=== PATIENT | male | born 1945 | race Hispanic/Latino ===

== ENCOUNTER 2024-07-13 05:41 | Inpatient (IN) | payer OTHER ==
[~2024-07-13] VITALS: Ht 162.6 cm; Wt 53.5 kg
[2024-07-13] VITALS (26 sets, daily range): BP systolic 80–133; BP diastolic 51–80; PULSE 59–92; RESP 14–18; TEMP 97.3–98.8
[2024-07-13] MEDS ORDERED: RAMI5CAP72 PO (06:38)
[2024-07-13] MEDS ORDERED: CLOP75TA32 PO (06:38)
[2024-07-13] MEDS ORDERED: OMEP40CA21 PO (06:38)
[2024-07-13] MEDS: 0.9%NACL 1000ML 1,000 ML IV ONE (06:52)
[2024-07-13] MEDS ORDERED: proPOFol 10 MG/ML 20ML VIAL IV ONE (10:35)
[2024-07-13] MEDS ORDERED: ARTIFICAL TEARS SOL 15 ML OP PRN (11:30)
[2024-07-13] MEDS ORDERED: hydrALAZine 25MG TABLET PO PRN (11:30)
[2024-07-13] MEDS ORDERED: GLUCAGON 1MG KIT 1 MG ML IM PRN (11:30)
[2024-07-13] MEDS ORDERED: DEXTROSE 50%-WATER 50 ML DISP.SYRIN IV PRN (11:30)
[2024-07-13] MEDS ORDERED: ondanSETRON 4MG INJ IV PRN (11:30)
[2024-07-13] MEDS ORDERED: DiphenhydrAMINE HCL 50 MG/ML VIAL IV PRN (11:30)
[2024-07-13] MEDS: DEXTROSE 5 %-0.45 % NACL 1,000 ML IV SCH (11:30)
--- NOTE | 2024-07-13 15:46 | HP ---
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 Acute Dehydration Failure to thrive secondary to #1 Electrolyte derangements Microcytic Anemia Leukocytosis , unclear etiology HTN GERD PLAN : Start D5 NS at this time , considering PPN for nutrition as patient has been npo for prolonged period of time Further evaluate leukocytosis with UA /CXR / Procalcitonin and peripheral smear Anemia studies Consult Oncology and General Surgery Ct abd/pelvis and Chest to evaluate for metastasis Pain control DVT prophylaxis / GI bleeding prophylaxis Pain control CBC CMP daily HPI: This is a case of an 78-year-old man that had persistent symptoms of gastroesophageal reflux disease with a past medical history of hypertension that was evaluated by Gastroenterology on July 01, 2024. Given his persistent symptoms the patient was set up to do an EGD and colonoscopy. An EGD was 1st done this morning and he was noted to have a gastric mass consistent with a gastric outlet obstruction. At this point our services were contacted for admission . Last meal intake was about 2 weeks ago with a solid ., he has been taking ensures and clear liquid since then without much appetite . BMs have been normal, last one this AM No emesis reported, + nausea . He jordan have a history of remote tobacco use , but quit about 10 yrs ago . He did partake in ETOH use about 4-5 drinks a day but quit 04/2024 Son is at bedside and we discussed current findings in detail and plan of care. PAST MEDICAL HX: see above PAST SURGICAL HX: noncontributory SOCIAL HISTORY: No current tobacco, ETOH, or illicit drug use Prior hx of smoking and ETOH Coded Allergies: No Known Drug Allergies (Unverified Allergy, Unknown, 07/13/24) REVIEW OF SYSTEMS: 12 point ROS reviewed with patient. Pertinent positives mentioned above. Otherwise negative. PHYSICAL EXAM: GENERAL: alert, weak, awake oriented x 3 HEENT: EOMI, Sclera non icteric, moist mucosa NECK: Supple, no JVD, trachea midline LUNGS: Clear breath sounds bilaterally. No wheezes HEART: Regular rate and rhythm. Normal S1 and S2, without murmurs ABD: Abdomen soft, nontender. Bowel sounds present EXT: No clubbing cyanosis or edema NEURO: Alert and oriented to person, follows commands Vital Signs (last 8hr) Date Time Temp Pulse Resp B/P (MAP) Pulse Ox O2 Delivery O2 Flow Rate FiO2 07/13/24 15:20 97.3 71 16 109/65 95 Room Air 0.0 07/13/24 14:50 66 15 121/56 94 Room Air 0.0 07/13/24 13:50 64 16 114/62 94 Room Air 0.0 07/13/24 13:20 62 16 109/62 95 Room Air 0.0 07/13/24 12:50 65 16 114/61 94 Room Air 0.0 07/13/24 12:35 61 16 102/58 95 Room Air 0.0 07/13/24 12:20 65 16 117/56 95 Room Air 0.0 07/13/24 12:05 62 14 110/61 94 Room Air 0.0 07/13/24 11:50 65 16 123/58 96 Room Air 0.0 07/13/24 11:35 59 16 122/56 100 Room Air 0.0 07/13/24 11:20 63 16 111/61 100 PROCEDURE MASK 5.0 07/13/24 11:15 66 16 112/59 100 PROCEDURE MASK 10.0 07/13/24 11:10 67 16 115/59 100 PROCEDURE MASK 15.0 07/13/24 11:05 70 16 82/59 100 PROCEDURE MASK 15.0 07/13/24 11:00 71 14 85/56 98 PROCEDURE MASK 15.0 07/13/24 10:55 81 14 80/53 98 PROCEDURE MASK 15.0 07/13/24 10:50 97.3 80 14 82/59 92 PROCEDURE MASK 15.0 LABS: DIAGNOSTICS / RADIOLOGY RESULTS: [ ] PLAN NEURO: Minimize central acting medications as possible. Maintain fall precautions, adequate lighting during the day PULMONARY: Supplemental 02 as needed. Maintain aspiration precautions at all times CARDIOVASCULAR: Follow hemodynamics. Vital signs per facility protocol GI & NUTRITION: Continue with nutritional support. Continue stool softeners and laxatives as needed. KIDNEYS & ELECTROLYTES: Strict monitoring of intake, output and overall fluid balance. Avoid nephrotoxic medications to the extent possible. Medications to be dosed according to renal function. Monitor electrolytes and replace as needed ENDOCRINE: Maintain blood glucose between 100-180 at all times. Hypoglycemia protocol in place INFECTIOUS DISEASE: Trend temperature, WBC and procalcitonin level Follow cultures, deescalate antibiotics as soon as possible. Panculture if new onset fever ONCOLOGY/HEMATOLOGY/COAGULATION: Monitor for s/s of bleeding Monitor hemoglobin, coagulation studies as needed SKIN: Pressure ulcer prevention per facility protocol Specialty mattress ORTHO/REHAB: Continue PT/OT Prophylaxis: Continue GI and DVT prophylaxis Code Status: Full Resuscitation Disposition: TBD Other: Total patient care time exceeds 35 minutes excluding all procedures. ALEX NAVA Jul 13, 2024 15:45
[2024-07-13 17:47] LABS: HEMATOCRIT 31.3 % (42-54); MEAN CORPUSCULAR HEMOGLOBIN 22.7 pg (27.0-33.0); MEAN CORPUSCULAR HGB CONC 30.7 g/dL (32.0-36.0); MEAN CORPUSCULAR VOLUME 74.2 fL (79-99); PLATELET COUNT (AUTO) 565 K/uL (130-400); RED BLOOD CELL COUNT(AUTO) 4.22 MIL/uL (4.50-6.20); RED CELL DISTRIBUTION WIDTH 17.2 % (11.0-15.5); WHITE BLOOD COUNT (AUTO) 20.5 K/uL (4.8-10.8)
[2024-07-13 17:52] LABS: BASOPHILS # (AUTO) 0.05 K/uL (0.00-0.20); BASOPHILS % (AUTO) 0.2 % (0.0-5.0); EOSINOPHILS # (AUTO) 0.02 K/uL (0.00-0.70); EOSINOPHILS % (AUTO) 0.1 % (0.0-8.0); LYMPHOCYTES # (AUTO) 0.5 K/uL (1.0-4.8); LYMPHOCYTES % (AUTO) 2.4 % (21.0-51.0); MONOCYTES # (AUTO) 1.4 K/uL (0.1-1.0); NEUTROPHILS # (AUTO) 18.3 K/uL (1.8-7.7); NEUTROPHILS % (AUTO) 89.8 % (40.0-77.0)
[2024-07-13 18:01] LABS: ALBUMIN 2.8 g/dL (3.5-5.0); BILIRUBIN,TOTAL 0.5 mg/dL (0.2-1.0); CREATININE 0.7 mg/dL (0.5-1.3); POTASSIUM 3.1 mmol/L (3.5-5.1); TOTAL PROTEIN, SERUM 5.7 g/dL (6.0-8.3)
[2024-07-13] MEDS: FAMOTIDINE 20MG VIAL IV SCH (20:12)
--- NOTE | 2024-07-13 20:20 | CONS ---
GASTROENTEROLOGY CONSULTATION NOTE Date of Consultation: Jul 13, 2024 Time of Consultation: 20:20 History of Present Illness: This is an 78-year-old male known to our services who was seen outpatient for endoscopy due to dysphagia. 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 Patient is also found to have LA grade B esophagitis. Excessive gastric fluid was suctioned. Patient admitted for NG tube to LIS and IV hydration. Review of Systems: CONSTITUTIONAL: No malaise or change in sensation of wellbeing. ENMT: No rhinorrhea, otorrhea, sinus pain, ear ache. CARDIOVASCULAR: No angina, palpitations, orthopnea or paroxysmal dyspnea. RESPIRATORY: No SOB. GASTROINTESTINAL: No abdominal pain, nausea, vomiting, diarrhea, hematemesis, melena or change in the patient's habitual bowel movements consistency/number. GENITOURINARY: No dysuria, hematuria or change in bladder continence. MUSCULOSKELETAL: No new muscle pain or decrease in muscular strength. No new joint swelling, redness or tenderness. SKIN: No new rash. Past Medical History: PAST MEDICAL HX: see above PAST SURGICAL HX: noncontributory SOCIAL HISTORY: No current tobacco, ETOH, or illicit drug use Prior hx of smoking and ETOH Coded Allergies: No Known Drug Allergies (Unverified Allergy, Unknown, 07/13/24) Physical Exam: GEN: Awake, alert, oriented in person, time and place, and in no acute distress. HEENT: No sinus tenderness. Tympanic membranes were not examined. No rhinorrhea. Oral pharyngeal mucosa is pink, moist and within normal limits. Neck is supple with no cervical lymphadenopathy, thyromegaly or JVD. CHEST: Inspection, palpation and percussion of the chest were unremarkable. Lung auscultation revealed normal breath sounds bilaterally. CARDIAC: PMI is within normal limits. Heart sounds are regular. Normal S1, S2. No gallop or murmur. ABD: Soft, non-tender and not distended. No peritoneal signs on palpation. No organomegaly. Normal bowel sounds. EXT: No cyanosis or clubbing. No edema. SKIN: Intact. No rashes. JOINTS: No evidence of synovitis or acute arthritis. NEURO: Alert and oriented to name, place and person. Cranial nerve examination is unremarkable. No focal motor deficits. Normal speech. Gait is normal. Strength is normal. Vital Sign (Last 24 Hours) 07/13/24 07/13/24 15:20 18:45 Temp 97.3 Pulse 86 Resp 18 B/P (MAP) 99/62 Pulse Ox 99 O2 Delivery Room Air O2 Flow Rate 0.0 Laboratory: [ ] Laboratory: Test 07/13/24 17:40 Range/Units White Blood Count 20.5 H 4.8-10.8 K/uL Red Blood Count 4.22 L 4.50-6.20 MIL/uL Hemoglobin 9.6 L 14.0-18.0 g/dL Hematocrit 31.3 L 42-54 % Mean Corpuscular Volume 74.2 L 79-99 fL Mean Corpuscular Hemoglobin 22.7 L 27.0-33.0 pg Mean Corpuscular Hemoglobin Concent 30.7 L 32.0-36.0 g/dL Red Cell Distribution Width 17.2 H 11.0-15.5 % Platelet Count 565 H 130-400 K/uL Mean Platelet Volume 10.0 7.5-10.5 fL Immature Granulocyte % (Auto) 0.5 0-1 % Neutrophils (%) (Auto) 89.8 H 40.0-77.0 % Lymphocytes (%) (Auto) 2.4 L 21.0-51.0 % Monocytes (%) (Auto) 7.0 3.0-13.0 % Eosinophils (%) (Auto) 0.1 0.0-8.0 % Basophils (%) (Auto) 0.2 0.0-5.0 % Neutrophils # (Auto) 18.3 H 1.8-7.7 K/uL Lymphocytes # (Auto) 0.5 L 1.0-4.8 K/uL Monocytes # (Auto) 1.4 H 0.1-1.0 K/uL Eosinophils # (Auto) 0.02 0.00-0.70 K/uL Basophils # (Auto) 0.05 0.00-0.20 K/uL Absolute Immature Granulocyte (auto 0.10 0-1 K/uL Nucleated Red Blood Cells 0.0 0.0-0.19 % White Cell Morphology Comment See comments Sodium Level 139 136-145 mmol/L Potassium Level 3.1 L 3.5-5.1 mmol/L Chloride Level 100 L 101-111 mmol/L Carbon Dioxide Level 30 21-32 mmol/L Blood Urea Nitrogen 10 7-18 mg/dL Creatinine 0.7 0.5-1.3 mg/dL Glomerular Filtration Rate Calc 93 >90 mL/min Random Glucose 77 70-105 mg/dL Total Calcium 8.3 L 8.5-10.1 mg/dL Total Bilirubin 0.5 0.2-1.0 mg/dL Aspartate Amino Transf (AST/SGOT) 26 10-37 U/L Alanine Aminotransferase (ALT/SGPT) 24 12-78 U/L Alkaline Phosphatase 63 50-136 U/L Total Protein 5.7 L 6.0-8.3 g/dL Albumin 2.8 L 3.5-5.0 g/dL Current Medications Medications (Trade) Dose Ordered Sig/Nory Route PRN Reason Start Time Stop Time Status Last Admin Dose Admin Artificial Tears (Artificial Tears) 1 DROP OP PRN DRY EYES Q2H PRN OP DRY EYES 07/13/24 11:30 08/12/24 11:29 Dextrose (D50w) 50 ml AD PRN IV HYPOGLYCEMIA PROTOCOL 07/13/24 11:30 08/12/24 11:29 Dextrose/Sodium Chloride 1,000 ml @ 75 mls/hr [id number] IV 07/13/24 11:30 08/12/24 11:29 07/13/24 20:12 75 MLS/HR Diphenhydramine HCl (BENAdryl INJ) 25 mg Q6H PRN IV SEVERE ITCHING/RASH 07/13/24 11:30 08/12/24 11:29 Famotidine (Pepcid 20mg Vial) 20 mg BID IV 07/13/24 21:00 08/12/24 20:59 07/13/24 20:12 20 MG Glucagon (Glucagon 1mg Kit) 1 mg AD PRN IM HYPOGLYCEMIA PROTOCOL 07/13/24 11:30 08/12/24 11:29 Hydralazine HCl ([id number] TAB) 25 mg Q6H PRN PO SBP>160 or DBP>90 07/13/24 11:30 08/12/24 11:29 Ondansetron HCl (zoFRAN 4MG INJ) 4 mg Q6H PRN IV NAUSEA/VOMITING 07/13/24 11:30 08/12/24 11:29 Diagnostics / Radiology: [COPY/PASTE HERE IF NO REPORTS PLEASE DELETE SECTION] Assessment: Gastric mass GERD esophagitis Dysphagia Weight loss Plan: Foregut surgery consult for resection vs feeding tube placement Await path Continue GI prophylaxis Avoid NSAIDs Antireflux measures Monitor H&H and transfuse as needed Call with questions, concerns or change in clinical status Patient to follow-up at clinic post discharge Thank you for this consult ARMAAN MIRZA Jul 13, 2024 20:20
[2024-07-14] VITALS (9 sets, daily range): BP systolic 93–107; BP diastolic 45–58; PULSE 68–87; RESP 17–19; TEMP 97.4–99.5; O2SAT 97
[2024-07-14 04:33] LABS: ALBUMIN 2.5 g/dL (3.5-5.0); BILIRUBIN,TOTAL 0.6 mg/dL (0.2-1.0); CREATININE 0.9 mg/dL (0.5-1.3); POTASSIUM 3.3 mmol/L (3.5-5.1); TOTAL PROTEIN, SERUM 5.6 g/dL (6.0-8.3)
--- NOTE | 2024-07-14 09:56 | PN ---
GASTROENTEROLOGY PROGRESS NOTE Date of Visit: Jul 14, 2024 Time of Visit: 09:56 Events / Notes: No acute events overnight. Patient stable in no acute distress. He is on parenteral nutrition. 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 CT without any evidence of metastasis. Review of Systems: CONSTITUTIONAL: No malaise or change in sensation of wellbeing. ENMT: No rhinorrhea, otorrhea, sinus pain, ear ache. CARDIOVASCULAR: No angina, palpitations, orthopnea or paroxysmal dyspnea. RESPIRATORY: No SOB. GASTROINTESTINAL: No abdominal pain, nausea, vomiting, diarrhea, hematemesis, melena or change in the patient's habitual bowel movements consistency/number. GENITOURINARY: No dysuria, hematuria or change in bladder continence. MUSCULOSKELETAL: No new muscle pain or decrease in muscular strength. No new joint swelling, redness or tenderness. SKIN: No new rash. Physical Exam: GEN: Awake, alert, oriented in person, time and place, and in no acute distress. HEENT: No sinus tenderness. Tympanic membranes were not examined. No rhinorrhea. Oral pharyngeal mucosa is pink, moist and within normal limits. Neck is supple with no cervical lymphadenopathy, thyromegaly or JVD. CHEST: Inspection, palpation and percussion of the chest were unremarkable. Lung auscultation revealed normal breath sounds bilaterally. CARDIAC: PMI is within normal limits. Heart sounds are regular. Normal S1, S2. No gallop or murmur. ABD: Soft, non-tender and not distended. No peritoneal signs on palpation. No organomegaly. Normal bowel sounds. EXT: No cyanosis or clubbing. No edema. SKIN: Intact. No rashes. JOINTS: No evidence of synovitis or acute arthritis. NEURO: Alert and oriented to name, place and person. Cranial nerve examination is unremarkable. No focal motor deficits. Normal speech. Gait is normal. Strength is normal. Vital Signs (last 8hr) Date Time Temp Pulse Resp B/P (MAP) Pulse Ox O2 Delivery O2 Flow Rate FiO2 07/14/24 08:00 99.5 71 18 107/58 97 Room Air 07/14/24 04:00 98.1 69 17 104/57 93 Nasal Cannula 3.0 Laboratory: [ ] Laboratory: Test 07/14/24 04:00 07/13/24 17:40 Range/Units Sodium Level 138 136-145 mmol/L Potassium Level 3.3 L 3.5-5.1 mmol/L Chloride Level 100 L 101-111 mmol/L Carbon Dioxide Level 34 H 21-32 mmol/L Blood Urea Nitrogen 10 7-18 mg/dL Creatinine 0.9 0.5-1.3 mg/dL Glomerular Filtration Rate Calc 86 >90 mL/min Random Glucose 122 #H 70-105 mg/dL Total Calcium 8.3 L 8.5-10.1 mg/dL Total Bilirubin 0.6 0.2-1.0 mg/dL Aspartate Amino Transf (AST/SGOT) 24 10-37 U/L Alanine Aminotransferase (ALT/SGPT) 20 12-78 U/L Alkaline Phosphatase 58 50-136 U/L Total Protein 5.6 L 6.0-8.3 g/dL Albumin 2.5 L 3.5-5.0 g/dL White Blood Count 20.5 H 4.8-10.8 K/uL Red Blood Count 4.22 L 4.50-6.20 MIL/uL Hemoglobin 9.6 L 14.0-18.0 g/dL Hematocrit 31.3 L 42-54 % Mean Corpuscular Volume 74.2 L 79-99 fL Mean Corpuscular Hemoglobin 22.7 L 27.0-33.0 pg Mean Corpuscular Hemoglobin Concent 30.7 L 32.0-36.0 g/dL Red Cell Distribution Width 17.2 H 11.0-15.5 % Platelet Count 565 H 130-400 K/uL Mean Platelet Volume 10.0 7.5-10.5 fL Immature Granulocyte % (Auto) 0.5 0-1 % Neutrophils (%) (Auto) 89.8 H 40.0-77.0 % Lymphocytes (%) (Auto) 2.4 L 21.0-51.0 % Monocytes (%) (Auto) 7.0 3.0-13.0 % Eosinophils (%) (Auto) 0.1 0.0-8.0 % Basophils (%) (Auto) 0.2 0.0-5.0 % Neutrophils # (Auto) 18.3 H 1.8-7.7 K/uL Lymphocytes # (Auto) 0.5 L 1.0-4.8 K/uL Monocytes # (Auto) 1.4 H 0.1-1.0 K/uL Eosinophils # (Auto) 0.02 0.00-0.70 K/uL Basophils # (Auto) 0.05 0.00-0.20 K/uL Absolute Immature Granulocyte (auto 0.10 0-1 K/uL Nucleated Red Blood Cells 0.0 0.0-0.19 % White Cell Morphology Comment See comments Current Medications Medications (Trade) Dose Ordered Sig/Nory Route PRN Reason Start Time Stop Time Status Last Admin Dose Admin Artificial Tears (Artificial Tears) 1 DROP OP PRN DRY EYES Q2H PRN OP DRY EYES 07/13/24 11:30 08/12/24 11:29 Dextrose (D50w) 50 ml AD PRN IV HYPOGLYCEMIA PROTOCOL 07/13/24 11:30 08/12/24 11:29 Dextrose/Sodium Chloride 1,000 ml @ 75 mls/hr [id number] IV 07/13/24 11:30 08/12/24 11:29 07/13/24 20:12 75 MLS/HR Diphenhydramine HCl (BENAdryl INJ) 25 mg Q6H PRN IV SEVERE ITCHING/RASH 07/13/24 11:30 08/12/24 11:29 Famotidine (Pepcid 20mg Vial) 20 mg BID IV 07/13/24 21:00 08/12/24 20:59 07/13/24 20:12 20 MG Glucagon (Glucagon 1mg Kit) 1 mg AD PRN IM HYPOGLYCEMIA PROTOCOL 07/13/24 11:30 08/12/24 11:29 Hydralazine HCl ([id number] TAB) 25 mg Q6H PRN PO SBP>160 or DBP>90 07/13/24 11:30 08/12/24 11:29 Ondansetron HCl (zoFRAN 4MG INJ) 4 mg Q6H PRN IV NAUSEA/VOMITING 07/13/24 11:30 08/12/24 11:29 Diagnostics / Radiology: [COPY/PASTE HERE IF NO REPORTS PLEASE DELETE SECTION] Assessment: Gastric mass with gastric outlet obstruction GERD esophagitis Dysphagia Weight loss Plan: Foregut surgery consult for resection vs feeding tube placement Await path Continue GI prophylaxis Avoid NSAIDs Antireflux measures Monitor H&H and transfuse as needed Call with questions, concerns or change in clinical status Patient to follow-up at clinic post discharge Thank you for this consult ARMAAN MIRZA [facility] Jul 14, 2024 09:56
[2024-07-14 11:05] LABS: BASOPHILS # (AUTO) 0.09 K/uL (0.00-0.20); BASOPHILS % (AUTO) 0.4 % (0.0-5.0); EOSINOPHILS # (AUTO) 0.21 K/uL (0.00-0.70); EOSINOPHILS % (AUTO) 0.9 % (0.0-8.0); HEMATOCRIT 28.4 % (42-54); IMMATURE GRANULOCYTE ABSOLUTE 0.36 K/uL (0-1); LYMPHOCYTES # (AUTO) 1.2 K/uL (1.0-4.8); LYMPHOCYTES % (AUTO) 5.2 % (21.0-51.0); MEAN CORPUSCULAR HEMOGLOBIN 22.6 pg (27.0-33.0); MONOCYTES # (AUTO) 1.4 K/uL (0.1-1.0); NEUTROPHILS # (AUTO) 19.8 K/uL (1.8-7.7); NEUTROPHILS % (AUTO) 85.9 % (40.0-77.0); PLATELET COUNT (AUTO) 512 K/uL (130-400); RED BLOOD CELL COUNT(AUTO) 3.89 MIL/uL (4.50-6.20); RED CELL DISTRIBUTION WIDTH 17.2 % (11.0-15.5); RETICULOCYTE % (AUTO) 1.39 % (0.42-2.23)
[2024-07-14 11:38] LABS: % IRON SATURATION 2.6 % (30-44)
[2024-07-14] MEDS ORDERED: IOHEXOL 350 MG/ML 100ML INFUS..BTL IV ONE (13:15)
--- NOTE | 2024-07-14 13:21 | NUR ---
[facility] CM MET WITH PT AND GRANDSON IN ROOM INITIAL ASSESSMENT DONE. PATIENT IS INDEPENDENT PRIOR TO ADMISSION, LIVES AT HOME WITH HIS SPUSE AND SON. PT HAS OWN BPM. DENIES ANY OTHER EQUIPMENT/SERVICES. FEELS SAFE TO GO BACK HOME, STILL DRIVE, FAMILY ABLE TO ASSIST WITH TRANSPORTATION AND NEEDS NECESSARY. DCP HOME ONCE STABLE. CM TO CONTINUE TO FOLLOW UP. Addendum: 07/14/24 at 1322 by STEFANI NI LVN CM Amended: Links added.
--- NOTE | 2024-07-14 14:03 | CONS ---
GENERAL SURGERY CONSULTATION NOTE Date/Time Patient Seen: July 14, 2024 Requesting Physician: Primary care hospitalist team and commercial carpenter Reason for Consultation: Concern for near obstructing gastric mass, probable gastric cancer History of Present Illness: I was consulted to get involved in the care of the patient was found to have a near obstructing gastric mass. This was discovered on EGD endoscopy by Gastroenterology. We are awaiting biopsy results and the patient is undergoing further testing at this time. He appears medically stable with an NG tube in place. At the time of my consultation he was being transported down to radiology for CT scan. Past Medical History: Please see admission H and P for further details Past Surgical History: Please see admission H and P for further details Family History: Please see admission H and P for further details Social History: Please see admission H and P for further details Habits: Please see admission H and P for further details Current Medications Medications (Trade) Dose Ordered Sig/Nory Route Start Time Stop Time Status Last Admin Dose Admin Dextrose/Sodium Chloride 1,000 ml @ 75 mls/hr [id number] IV 07/13/24 11:30 08/12/24 11:29 07/13/24 20:12 75 MLS/HR Enoxaparin Sodium (Lovenox) 30 mg DAILY SQ 07/15/24 09:00 08/14/24 08:59 Famotidine (Pepcid 20mg Vial) 20 mg BID IV 07/13/24 21:00 08/12/24 20:59 07/14/24 10:01 20 MG Review of Systems: Please see admission H and P for further details Physical Examination: GENERAL: [No acute distress.] HEAD: [Normal with no signs of head trauma.] EYES: [PERRLA, EOMI, conjunctiva and sclera normal.] ENT: [Hearing grossly intact, normal oropharynx.] NECK: [Supple without JVD. There is no tenderness, lymphadenopathy, or masses. No thyromegaly. Normal carotid upstrokes without bruits.] LUNGS: [Clear breath sounds bilaterally.] HEART: [Normal rate and rhythm.] VASC: [Peripheral pulses +2 bilaterally.] ABD: [Soft, normal bowel sounds.] : [Not examined] LYMPH: [No lymphadenopathy noted.] EXT: [No clubbing, cyanosis or edema noted.] SKIN: [No rashes or lesions noted.] NEURO: [Awake, alert, and oriented x3. No focal sensory or strength deficits noted.] Vital Signs (last 8hr) Date Time Temp Pulse Resp B/P (MAP) Pulse Ox O2 Delivery O2 Flow Rate FiO2 07/14/24 12:00 98.4 70 19 93/49 98 Nasal Cannula 3.0 07/14/24 08:00 99.5 71 18 107/58 97 Room Air Laboratory: [ ] Hematology Labs: Test 07/14/24 10:28 07/13/24 17:40 Range/Units White Blood Count 23.0 H 4.8-10.8 K/uL Red Blood Count 3.89 L 4.50-6.20 MIL/uL Hemoglobin 8.8 L 14.0-18.0 g/dL Hematocrit 28.4 L 42-54 % Mean Corpuscular Volume 73.0 L 79-99 fL Mean Corpuscular Hemoglobin 22.6 L 27.0-33.0 pg Mean Corpuscular Hemoglobin Concent 31.0 L 32.0-36.0 g/dL Red Cell Distribution Width 17.2 H 11.0-15.5 % Platelet Count 512 H 130-400 K/uL Mean Platelet Volume 10.6 H 7.5-10.5 fL Immature Granulocyte % (Auto) 1.6 H 0-1 % Neutrophils (%) (Auto) 85.9 H 40.0-77.0 % Lymphocytes (%) (Auto) 5.2 L 21.0-51.0 % Monocytes (%) (Auto) 6.0 3.0-13.0 % Eosinophils (%) (Auto) 0.9 0.0-8.0 % Basophils (%) (Auto) 0.4 0.0-5.0 % Neutrophils # (Auto) 19.8 H 1.8-7.7 K/uL Lymphocytes # (Auto) 1.2 1.0-4.8 K/uL Monocytes # (Auto) 1.4 H 0.1-1.0 K/uL Eosinophils # (Auto) 0.21 0.00-0.70 K/uL Basophils # (Auto) 0.09 0.00-0.20 K/uL Absolute Immature Granulocyte (auto 0.36 0-1 K/uL Nucleated Red Blood Cells 0.0 0.0-0.19 % Red Blood Cell Morphology See comments Reticulocyte Count (auto) 1.12467 0.42-2.23 % Immature Reticulocyte Fraction 9.80 H 0.18-0.48 % White Cell Morphology Comment See comments Chemistry Labs: Test 07/14/24 10:28 07/14/24 04:00 Range/Units Iron Level 6 L 65-175 mcg/dL Total Iron Binding Capacity 230 L 250-450 mcg/dL Percent Iron Saturation 2.6 L 30-44 % Ferritin 35 30-400 ng/mL Vitamin B12 Level 657 193-986 pg/mL Sodium Level 138 136-145 mmol/L Potassium Level 3.3 L 3.5-5.1 mmol/L Chloride Level 100 L 101-111 mmol/L Carbon Dioxide Level 34 H 21-32 mmol/L Blood Urea Nitrogen 10 7-18 mg/dL Creatinine 0.9 0.5-1.3 mg/dL Glomerular Filtration Rate Calc 86 >90 mL/min Random Glucose 122 #H 70-105 mg/dL Total Calcium 8.3 L 8.5-10.1 mg/dL Total Bilirubin 0.6 0.2-1.0 mg/dL Aspartate Amino Transf (AST/SGOT) 24 10-37 U/L Alanine Aminotransferase (ALT/SGPT) 20 12-78 U/L Alkaline Phosphatase 58 50-136 U/L Total Protein 5.6 L 6.0-8.3 g/dL Albumin 2.5 L 3.5-5.0 g/dL Diagnostics / Radiology: CT chest, abd, pel PENDING at time of visit Assessment: 78yo M with new found gastric mass, awaiting further testing. Plan: If patient is found to have metastatic disease, our most likely intervention will be to assist with feeding access vs palliative resection if necessary secondary to bleeding or other complication. If patient is found to have disease isolated to the stomach, AND he is cleared by cardiology/oncology to be considered for attempted resection, THEN we will consider attempted oncologic resection during this hospitalization. All care decision will be guided by patient/family wishes and will be coordinated with primary team, oncology and other consulting care givers. Thank you for allowing us to participate in the care of this patient. FACUNDO NI MD Jul 14, 2024 14:03
--- NOTE | 2024-07-14 15:21 | HMCIMG ---
CT CHEST/ABD/PELV W/WO CONTRAS HISTORY: Gastric mass COMPARISON: None TECHNIQUE: Multiple sequential axial images of the chest were obtained from the thoracic inlet through upper abdomen. Patient was given 100 cc of Omnipaque through intravenous route. FINDINGS: COPD changes are seen. Tiny left pleural effusion is seen with subsegmental atelectasis. Left lower lobe pulmonary infiltrates are seen. There are also minimal left upper lobe pulmonary infiltrates. Coronary arterial calcifications are seen. There is no evidence of pneumothorax. There are normal size mediastinal and hilar lymph nodes. The heart is not enlarged. Degenerative changes of the thoracolumbar spine are present. There is no evidence of adrenal nodule. IMPRESSION: 1. COPD changes are seen. Tiny left pleural effusion is seen with subsegmental atelectasis. Left lower lobe pulmonary infiltrates are seen. There are also minimal left upper lobe pulmonary infiltrates. Coronary arterial calcifications are seen. CT CHEST/ABD/PELV W/WO CONTRAS HISTORY: Gastric obstruction COMPARISON: None TECHNIQUE: Multiple sequential axial images of the abdomen and pelvis were obtained from the dome of the diaphragm through symphysis pubis. Patient was given 100 cc of Omnipaque through intravenous route. Oral contrast was not given. FINDINGS: Nasogastric tube is seen with distal tip near the EG junction. Stomach is markedly distended. There appears to be soft tissue mass near the gastric antrum measuring 3.4 x 4.6 cm. Endoscopic correlation may be helpful. The liver, spleen, adrenal glands and pancreas are unremarkable. There is no evidence of hydronephrosis bilaterally. No evidence of renal stone is seen. Fecal material is seen in the colon. There are normal size retroperitoneal and mesenteric lymph nodes. No ascites is seen. Atherosclerotic changes are present. Pelvic sidewalls are symmetric bilaterally. Bladder is well distended without wall thickening. IMPRESSION: 1. Gastric mass near the antral portion measuring 3.4 x 4.6 cm. Nasogastric tube is seen with distal tip near the esophagogastric junction. CT was performed with one or more following dose reduction techniques: automated exposure control, adjustment of the mA and kv according to patient's size, or use of a iterative reconstruction technique.
--- NOTE | 2024-07-14 16:33 | HMCIMG ---
CHEST 1VW HISTORY: Congestion COMPARISON: None FINDINGS: A frontal projection of the chest was obtained. Left lung pulmonary infiltrates are seen. The heart is borderline enlarged. Degenerative changes are seen. Aortic calcifications are seen. Nasogastric tube is seen with distal tip at the level of the gastroesophageal junction. IMPRESSION: 1. Left lung infiltrates
--- NOTE | 2024-07-14 16:40 | PN ---
[facility] PROGRESS NOTE Date Patient Seen: Jul 14, 2024 Time of Visit: 16:32 Supervising Physician: THALIA GORDON Primary Care Physician: DR ISAACS Outpatient Specialists: [ ] Inpatient Consults: DR RUEDA - GI PROBLEM LIST: Acute Gastric Outlet Obstruction secondary to Gastric Mass Right Sided Aspiration PNA likey due to above. Acute Dehydration Failure to thrive secondary to #1 Electrolyte derangements Microcytic Anemia secondaryto Iron deficiency HTN GERD PLAN : Start D5 NS at this time , start PPN for nutrition as patient has been npo for prolonged period of time Further evaluate leukocytosis with UA /CXR / Procalcitonin and peripheral smear- Secondary to Right sided PNA Start zosyn and nebulizations, sputum cultures Oncology and General Surgery -following Cardiologyconsult for preop clearance Pain control DVT prophylaxis / GI bleeding prophylaxis CBC CMP daily INTERVAL HISTORY: Patient was seen and examined today by me, the patient at this time is status post CT chest and abdomen pelvis scanning, He was also evaluated by Dr. Feng. At this time we are awaiting further testing. As per Dr. Feng if the patient was found to have metastatic disease are most likely intervention will be to assist with feeding access versus palliative resection if necessary secondary to bleeding or other complication. If the patient was found to have isolated disease and he is cleared by Cardiology Oncology then a attempted resection could be considered during his hospitalization. Malik scanning at this time reveals COPD changes a tiny left pleural effusion with pulmonary infiltrates consistent with a pneumonia otherwise gastric mass near the anterior portion measuring 3.4 x 4.6. No evidence of metastatic for now. Cardiology will be consulted for cardiac clearance for possible resection. REVIEW OF SYSTEMS: 12 point ROS reviewed with patient. Pertinent positives mentioned above. Oth erwise negative. PHYSICAL EXAM: GENERAL: alert, weak, awake oriented x 3 HEENT: EOMI, Sclera non icteric, moist mucosa NECK: Supple, no JVD, trachea midline LUNGS: Clear breath sounds bilaterally. No wheezes HEART: Regular rate and rhythm. Normal S1 and S2, without murmurs ABD: Abdomen soft, nontender. Bowel sounds present EXT: No clubbing cyanosis or edema NEURO: Alert and oriented to person, follows commands Vital Signs (last 8hr) Date Time Temp Pulse Resp B/P (MAP) Pulse Ox O2 Delivery O2 Flow Rate FiO2 07/14/24 12:00 98.4 70 19 93/49 98 Nasal Cannula 3.0 LABS: Hematology Labs: Test 07/14/24 10:28 07/13/24 17:40 Range/Units White Blood Count 23.0 H 4.8-10.8 K/uL Red Blood Count 3.89 L 4.50-6.20 MIL/uL Hemoglobin 8.8 L 14.0-18.0 g/dL Hematocrit 28.4 L 42-54 % Mean Corpuscular Volume 73.0 L 79-99 fL Mean Corpuscular Hemoglobin 22.6 L 27.0-33.0 pg Mean Corpuscular Hemoglobin Concent 31.0 L 32.0-36.0 g/dL Red Cell Distribution Width 17.2 H 11.0-15.5 % Platelet Count 512 H 130-400 K/uL Mean Platelet Volume 10.6 H 7.5-10.5 fL Immature Granulocyte % (Auto) 1.6 H 0-1 % Neutrophils (%) (Auto) 85.9 H 40.0-77.0 % Lymphocytes (%) (Auto) 5.2 L 21.0-51.0 % Monocytes (%) (Auto) 6.0 3.0-13.0 % Eosinophils (%) (Auto) 0.9 0.0-8.0 % Basophils (%) (Auto) 0.4 0.0-5.0 % Neutrophils # (Auto) 19.8 H 1.8-7.7 K/uL Lymphocytes # (Auto) 1.2 1.0-4.8 K/uL Monocytes # (Auto) 1.4 H 0.1-1.0 K/uL Eosinophils # (Auto) 0.21 0.00-0.70 K/uL Basophils # (Auto) 0.09 0.00-0.20 K/uL Absolute Immature Granulocyte (auto 0.36 0-1 K/uL Nucleated Red Blood Cells 0.0 0.0-0.19 % Red Blood Cell Morphology See comments Reticulocyte Count (auto) 1.85828 0.42-2.23 % Immature Reticulocyte Fraction 9.80 H 0.18-0.48 % White Cell Morphology Comment See comments Chemistry Labs: Test 07/14/24 10:28 07/14/24 04:00 Range/Units Iron Level 6 L 65-175 mcg/dL Total Iron Binding Capacity 230 L 250-450 mcg/dL Percent Iron Saturation 2.6 L 30-44 % Ferritin 35 30-400 ng/mL Vitamin B12 Level 657 193-986 pg/mL Procalcitonin 4.17 H 0.05-0.5 ng/mL Sodium Level 138 136-145 mmol/L Potassium Level 3.3 L 3.5-5.1 mmol/L Chloride Level 100 L 101-111 mmol/L Carbon Dioxide Level 34 H 21-32 mmol/L Blood Urea Nitrogen 10 7-18 mg/dL Creatinine 0.9 0.5-1.3 mg/dL Glomerular Filtration Rate Calc 86 >90 mL/min Random Glucose 122 #H 70-105 mg/dL Total Calcium 8.3 L 8.5-10.1 mg/dL Total Bilirubin 0.6 0.2-1.0 mg/dL Aspartate Amino Transf (AST/SGOT) 24 10-37 U/L Alanine Aminotransferase (ALT/SGPT) 20 12-78 U/L Alkaline Phosphatase 58 50-136 U/L Total Protein 5.6 L 6.0-8.3 g/dL Albumin 2.5 L 3.5-5.0 g/dL DIAGNOSTICS / RADIOLOGY RESULTS: [ ] PLAN NEURO: Minimize central acting medications as possible. Maintain fall precautions, adequate lighting during the day PULMONARY: Supplemental 02 as needed. Maintain aspiration precautions at all times CARDIOVASCULAR: Follow hemodynamics. Vital signs per facility protocol GI & NUTRITION: Continue with nutritional support. Continue stool softeners and laxatives as needed. KIDNEYS & ELECTROLYTES: Strict monitoring of intake, output and overall fluid balance. Avoid nephrotoxic medications to the extent possible. Medications to be dosed according to renal function. Monitor electrolytes and replace as needed ENDOCRINE: Maintain blood glucose between 100-180 at all times. Hypoglycemia protocol in place INFECTIOUS DISEASE: Trend temperature, WBC and procalcitonin level Follow cultures, deescalate antibiotics as soon as possible. Panculture if new onset fever ONCOLOGY/HEMATOLOGY/COAGULATION: Monitor for s/s of bleeding Monitor hemoglobin, coagulation studies as needed SKIN: Pressure ulcer prevention per facility protocol Specialty mattress ORTHO/REHAB: Continue PT/OT Prophylaxis: Continue GI and DVT prophylaxis Code Status: Full Resuscitation Disposition: TBD Other: Total patient care time exceeds 35 minutes excluding all procedures. ALEX NAVA Jul 14, 2024 16:40
[2024-07-14] MEDS: ZOSYN 3.375GM +NS 50ML IV SCH (17:58)
[2024-07-14] MEDS: IpraTROPium 0.5 MG/2.5 ML INH IH SCH (18:47)
[2024-07-14 19:05] LABS: COVID19 (SARS ANTIGEN RAPID) PRESUMPTIVE NEGATIVE (NEGATIVE)
[2024-07-14 19:06] LABS: INFLUENZA TYPE A Negative For Type A (NEGATIVE); INFLUENZA TYPE B Negative For Type B (NEGATIVE)
[2024-07-14] MEDS: PHARMACY COMMUNICATION MISC SCH (20:14)
[2024-07-15] VITALS (12 sets, daily range): BP systolic 88–119; BP diastolic 49–70; PULSE 64–81; RESP 16–18; TEMP 98.4–100.3; O2SAT 96–99
[2024-07-15 04:44] LABS: BASOPHILS # (AUTO) 0.07 K/uL (0.00-0.20); BASOPHILS % (AUTO) 0.3 % (0.0-5.0); EOSINOPHILS # (AUTO) 0.76 K/uL (0.00-0.70); EOSINOPHILS % (AUTO) 3.6 % (0.0-8.0); HEMATOCRIT 27.3 % (42-54); IMMATURE GRANULOCYTE ABSOLUTE 0.18 K/uL (0-1); LYMPHOCYTES # (AUTO) 1.3 K/uL (1.0-4.8); LYMPHOCYTES % (AUTO) 6.2 % (21.0-51.0); MEAN CORPUSCULAR HEMOGLOBIN 22.6 pg (27.0-33.0); MEAN CORPUSCULAR HGB CONC 30.8 g/dL (32.0-36.0); MEAN CORPUSCULAR VOLUME 73.6 fL (79-99); MONOCYTES # (AUTO) 1.5 K/uL (0.1-1.0); NEUTROPHILS # (AUTO) 17.3 K/uL (1.8-7.7); PLATELET COUNT (AUTO) 438 K/uL (130-400); RED BLOOD CELL COUNT(AUTO) 3.71 MIL/uL (4.50-6.20); WHITE BLOOD COUNT (AUTO) 21.1 K/uL (4.8-10.8)
[2024-07-15 05:12] LABS: ALBUMIN 2.1 g/dL (3.5-5.0); BILIRUBIN,TOTAL 0.6 mg/dL (0.2-1.0); MAGNESIUM 1.8 mg/dL (1.80-2.40); PHOSPHORUS 2.8 mg/dL (2.5-4.9); TOTAL PROTEIN, SERUM 5.2 g/dL (6.0-8.3)
[2024-07-15 05:18] LABS: POTASSIUM 2.9 mmol/L (3.5-5.1)
[2024-07-15] MEDS: PoTASSium chloRIDE 20MEQ/100ML 100 ML IV PRN (06:07)
--- NOTE | 2024-07-15 07:44 | PN ---
GASTROENTEROLOGY PROGRESS NOTE Date of Visit: Jul 15, 2024 Time of Visit: 07:44 Events / Notes: No acute events overnight. Patient stable in no acute distress. He is on parenteral nutrition. 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 CT without any evidence of metastasis. Review of Systems: CONSTITUTIONAL: No malaise or change in sensation of wellbeing. ENMT: No rhinorrhea, otorrhea, sinus pain, ear ache. CARDIOVASCULAR: No angina, palpitations, orthopnea or paroxysmal dyspnea. RESPIRATORY: No SOB. GASTROINTESTINAL: No abdominal pain, nausea, vomiting, diarrhea, hematemesis, melena or change in the patient's habitual bowel movements consistency/number. GENITOURINARY: No dysuria, hematuria or change in bladder continence. MUSCULOSKELETAL: No new muscle pain or decrease in muscular strength. No new joint swelling, redness or tenderness. SKIN: No new rash. Physical Exam: GEN: Awake, alert, oriented in person, time and place, and in no acute distress. HEENT: No sinus tenderness. Tympanic membranes were not examined. No rhinorrhea. Oral pharyngeal mucosa is pink, moist and within normal limits. Neck is supple with no cervical lymphadenopathy, thyromegaly or JVD. CHEST: Inspection, palpation and percussion of the chest were unremarkable. Lung auscultation revealed normal breath sounds bilaterally. CARDIAC: PMI is within normal limits. Heart sounds are regular. Normal S1, S2. No gallop or murmur. ABD: Soft, non-tender and not distended. No peritoneal signs on palpation. No organomegaly. Normal bowel sounds. EXT: No cyanosis or clubbing. No edema. SKIN: Intact. No rashes. JOINTS: No evidence of synovitis or acute arthritis. NEURO: Alert and oriented to name, place and person. Cranial nerve examination is unremarkable. No focal motor deficits. Normal speech. Gait is normal. Strength is normal. Vital Signs (last 8hr) Date Time Temp Pulse Resp B/P (MAP) Pulse Ox O2 Delivery O2 Flow Rate FiO2 07/15/24 06:43 67 18 N/Cannula Low lpm 3.0 32 07/15/24 06:43 67 18 07/15/24 04:00 98.4 66 17 96/59 99 Nasal Cannula 3.0 07/15/24 00:00 100.2 68 17 97/58 97 Nasal Cannula 3.0 Laboratory: [ ] Laboratory: Test 07/15/24 04:23 07/14/24 18:28 07/14/24 10:28 07/13/24 17:40 Range/Units White Blood Count 21.1 H 4.8-10.8 K/uL Red Blood Count 3.71 L 4.50-6.20 MIL/uL Hemoglobin 8.4 L 14.0-18.0 g/dL Hematocrit 27.3 L 42-54 % Mean Corpuscular Volume 73.6 L 79-99 fL Mean Corpuscular Hemoglobin 22.6 L 27.0-33.0 pg Mean Corpuscular Hemoglobin Concent 30.8 L 32.0-36.0 g/dL Red Cell Distribution Width 17.0 H 11.0-15.5 % Platelet Count 438 H 130-400 K/uL Mean Platelet Volume 10.6 H 7.5-10.5 fL Immature Granulocyte % (Auto) 0.9 0-1 % Neutrophils (%) (Auto) 82.0 H 40.0-77.0 % Lymphocytes (%) (Auto) 6.2 L 21.0-51.0 % Monocytes (%) (Auto) 7.0 3.0-13.0 % Eosinophils (%) (Auto) 3.6 0.0-8.0 % Basophils (%) (Auto) 0.3 0.0-5.0 % Neutrophils # (Auto) 17.3 H 1.8-7.7 K/uL Lymphocytes # (Auto) 1.3 1.0-4.8 K/uL Monocytes # (Auto) 1.5 H 0.1-1.0 K/uL Eosinophils # (Auto) 0.76 H 0.00-0.70 K/uL Basophils # (Auto) 0.07 0.00-0.20 K/uL Absolute Immature Granulocyte (auto 0.18 0-1 K/uL Nucleated Red Blood Cells 0.0 0.0-0.19 % Sodium Level 136 136-145 mmol/L Potassium Level 2.9 *L 3.5-5.1 mmol/L Chloride Level 101 101-111 mmol/L Carbon Dioxide Level 32 21-32 mmol/L Blood Urea Nitrogen 11 7-18 mg/dL Creatinine 1.0 0.5-1.3 mg/dL Glomerular Filtration Rate Calc 76 >90 mL/min Random Glucose 116 H 70-105 mg/dL Total Calcium 8.0 L 8.5-10.1 mg/dL Phosphorus Level 2.8 2.5-4.9 mg/dL Magnesium Level 1.80 1.80-2.40 mg/dL Total Bilirubin 0.6 0.2-1.0 mg/dL Aspartate Amino Transf (AST/SGOT) 15 10-37 U/L Alanine Aminotransferase (ALT/SGPT) 16 12-78 U/L Alkaline Phosphatase 56 50-136 U/L Total Protein 5.2 L 6.0-8.3 g/dL Albumin 2.1 L 3.5-5.0 g/dL Influenza Type A Antigen Negative For Type A NEGATIVE Influenza Type B Antigen Negative For Type B NEGATIVE SARS-CoV-2 Antigen (Rapid) PRESUMPTIVE NEGATIVE NEGATIVE Red Blood Cell Morphology See comments Reticulocyte Count (auto) 1.81740 0.42-2.23 % Immature Reticulocyte Fraction 9.80 H 0.18-0.48 % Iron Level 6 L 65-175 mcg/dL Total Iron Binding Capacity 230 L 250-450 mcg/dL Percent Iron Saturation 2.6 L 30-44 % Ferritin 35 30-400 ng/mL Vitamin B12 Level 657 193-986 pg/mL Procalcitonin 4.17 H 0.05-0.5 ng/mL White Cell Morphology Comment See comments Current Medications Medications (Trade) Dose Ordered Sig/Nory Route PRN Reason Start Time Stop Time Status Last Admin Dose Admin Artificial Tears (Artificial Tears) 1 DROP OP PRN DRY EYES Q2H PRN OP DRY EYES 07/13/24 11:30 08/12/24 11:29 Dextrose (D50w) 50 ml AD PRN IV HYPOGLYCEMIA PROTOCOL 07/13/24 11:30 08/12/24 11:29 Dextrose/Sodium Chloride 1,000 ml @ 75 mls/hr [id number] IV 07/13/24 11:30 08/12/24 11:29 07/14/24 14:36 75 MLS/HR Diphenhydramine HCl (BENAdryl INJ) 25 mg Q6H PRN IV SEVERE ITCHING/RASH 07/13/24 11:30 08/12/24 11:29 Enoxaparin Sodium (Lovenox) 30 mg DAILY SQ 07/15/24 09:00 08/14/24 08:59 Famotidine (Pepcid 20mg Vial) 20 mg BID IV 07/13/24 21:00 08/12/24 20:59 07/14/24 20:07 20 MG Glucagon (Glucagon 1mg Kit) 1 mg AD PRN IM HYPOGLYCEMIA PROTOCOL 07/13/24 11:30 08/12/24 11:29 Hydralazine HCl ([id number] TAB) 25 mg Q6H PRN PO SBP>160 or DBP>90 07/13/24 11:30 08/12/24 11:29 Ipratropium [place] (AtrovENT UD) 0.5 mg Q6H IH 07/14/24 17:00 08/13/24 16:59 07/15/24 06:43 0.5 MG Ondansetron HCl (zoFRAN 4MG INJ) 4 mg Q6H PRN IV NAUSEA/VOMITING 07/13/24 11:30 08/12/24 11:29 Pharmacy Profile Note (Pharmacy Communication) 1 each ONCE MISC 07/14/24 17:00 07/21/24 16:59 Piperacillin Sod/ Tazobactam Sod (Zosyn 3.375gm+NS 50ml) 3.375 gm Q8H IV 07/14/24 17:00 07/24/24 16:59 07/14/24 23:52 3.375 GM Potassium Chloride 100 ml @ 50 mls/hr AD PRN IV POTASSIUM PROTOCOL 07/15/24 06:00 08/14/24 05:59 07/15/24 06:07 50 MLS/HR Diagnostics / Radiology: [COPY/PASTE HERE IF NO REPORTS PLEASE DELETE SECTION] Assessment: Gastric mass with gastric outlet obstruction GERD esophagitis Dysphagia Weight loss Plan: EUS for staging in am Foregut surgery consult for resection vs feeding tube placement Await path Continue GI prophylaxis Avoid NSAIDs Antireflux measures Monitor H&H and transfuse as needed Call with questions, concerns or change in clinical status Patient to follow-up at clinic post discharge Thank you for this consult ARMAAN MIRZA Jul 15, 2024 07:44
[2024-07-15] MEDS ORDERED: AMINO ACIDS 4.25 %/DEXTROSE 5% 2,000 ML IV ONE (08:00)
[2024-07-15] MEDS: ENOXAPARIN SODIUM 30 MG/0.3 ML SQ SCH (09:10)
[2024-07-15] MEDS: CLINIMIX-E4.25%AA/D5+LYT2000ML 2,000 ML IV ONE (11:52)
[2024-07-15 12:17] LABS: APPEARANCE,URINE CLEAR (CLEAR); BILIRUBIN,URINE NEGATIVE (NEGATIVE); COLOR,URINE LIGHT-YELLOW (YELLOW); GLUCOSE, URINE (UA) NEGATIVE (NEGATIVE); KETONES,URINE NEGATIVE (NEGATIVE); LEUKOCYTE ESTERASE ,URINE NEGATIVE Leu/uL (NEGATIVE); NITRATE,URINE NEGATIVE (NEGATIVE); OCCULT BLOOD,URINE NEGATIVE (NEGATIVE); PH,URINE 7.5 (5.0-8.0); PROTEIN,URINE 30 mg/dL (NEGATIVE); UROBILINOGEN,URINE 0.2 mg/dL (0.2-1.0)
[2024-07-15 12:55] LABS: ADD UA MICROSCOPIC NO
[2024-07-15 13:07] LABS: MUCUS,URINE RARE LPF (None Seen)
--- NOTE | 2024-07-15 13:07 | CONS ---
CONSULT NOTE: HPI: This is a case of an 78-year-old man that had persistent symptoms of gastroesophageal reflux disease with a past medical history of hypertension that was evaluated by Gastroenterology on July 01, 2024. Given his persistent symptoms the patient was set up to do an EGD and colonoscopy. An EGD was 1st done this morning and he was noted to have a gastric mass consistent with a gastric outlet obstruction. At this point our services were contacted for admission . Last meal intake was about 2 weeks ago with a solid ., he has been taking ensures and clear liquid since then without much appetite . BMs have been normal, last one this AM No emesis reported, + nausea . He jordan have a history of remote tobacco use , but quit about 10 yrs ago . He did partake in ETOH use about 4-5 drinks a day but quit 04/2024 Son is at bedside and we discussed current findings in detail and plan of care. PAST MEDICAL HX: see above PAST SURGICAL HX: noncontributory SOCIAL HISTORY: No current tobacco, ETOH, or illicit drug use Prior hx of smoking and ETOH Coded Allergies: No Known Drug Allergies (Unverified Allergy, Unknown, 07/13/24) REVIEW OF SYSTEMS: 12 point ROS reviewed with patient. Pertinent positives mentioned above. Otherwise negative. PHYSICAL EXAM: GENERAL: alert, weak, awake oriented x 3 HEENT: EOMI, Sclera non icteric, moist mucosa NECK: Supple, no JVD, trachea midline LUNGS: Clear breath sounds bilaterally. No wheezes HEART: Regular rate and rhythm. Normal S1 and S2, without murmurs ABD: Abdomen soft, nontender. Bowel sounds present EXT: No clubbing cyanosis or edema NEURO: Alert and oriented to person, follows commands Assessment Acute Gastric Outlet Obstruction secondary to Gastric Mass. EGD was done with biopsy is sent to his local pathology. Acute Dehydration Failure to thrive secondary to #1 Electrolyte derangements Microcytic Anemia Leukocytosis , unclear etiology HTN GERD PLAN : 1. Will follow-up with the result of pathology.We have to wait until final report. If it is adenocarcinoma then this patient may be could have surgery done. But if it is different pathology such as GI stromal tumor, lymphoma and then the treatment will be different. 2. CT scan of the abdomen showing 3.4 x 4.6 cm gastric mass to the antral p osition. This patient was evaluated by surgeon. 3. I have long discussion with the patient and family member regarding the plan of care. I answer all question and concern and I spent more than 35 minutes. My nurse was translating to the patient and family member regarding our plan of care. 4. This patient to receive iron deficiency anemia. The patient could benefit from IV iron daily for 3 days while the patient in the hospital. 5. No need for blood product transfusion at this time Laboratory Tests Test 07/14/24 18:28 07/15/24 04:23 07/15/24 11:55 Influenza Type A Antigen Negative For Type A Influenza Type B Antigen Negative For Type B SARS-CoV-2 Antigen (Rapid) PRESUMPTIVE NEGATIVE White Blood Count 21.1 K/uL (4.8-10.8) H Red Blood Count 3.71 MIL/uL (4.50-6.20) L Hemoglobin 8.4 g/dL (14.0-18.0) L Hematocrit 27.3 % (42-54) L Mean Corpuscular Volume 73.6 fL (79-99) L Mean Corpuscular Hemoglobin 22.6 pg (27.0-33.0) L Mean Corpuscular Hemoglobin Concent 30.8 g/dL (32.0-36.0) L Red Cell Distribution Width 17.0 % (11.0-15.5) H Platelet Count 438 K/uL (130-400) H Mean Platelet Volume 10.6 fL (7.5-10.5) H Immature Granulocyte % (Auto) 0.9 % (0-1) Neutrophils (%) (Auto) 82.0 % (40.0-77.0) H Lymphocytes (%) (Auto) 6.2 % (21.0-51.0) L Monocytes (%) (Auto) 7.0 % (3.0-13.0) Eosinophils (%) (Auto) 3.6 % (0.0-8.0) Basophils (%) (Auto) 0.3 % (0.0-5.0) Neutrophils # (Auto) 17.3 K/uL (1.8-7.7) H Lymphocytes # (Auto) 1.3 K/uL (1.0-4.8) Monocytes # (Auto) 1.5 K/uL (0.1-1.0) H Eosinophils # (Auto) 0.76 K/uL (0.00-0.70) H Basophils # (Auto) 0.07 K/uL (0.00-0.20) Absolute Immature Granulocyte (auto 0.18 K/uL (0-1) Nucleated Red Blood Cells 0.0 % (0.0-0.19) Sodium Level 136 mmol/L (136-145) Potassium Level 2.9 mmol/L (3.5-5.1) *L Chloride Level 101 mmol/L (101-111) Carbon Dioxide Level 32 mmol/L (21-32) Blood Urea Nitrogen 11 mg/dL (7-18) Creatinine 1.0 mg/dL (0.5-1.3) Glomerular Filtration Rate Calc 76 mL/min (>90) Random Glucose 116 mg/dL (70-105) H Total Calcium 8.0 mg/dL (8.5-10.1) L Phosphorus Level 2.8 mg/dL (2.5-4.9) Magnesium Level 1.80 mg/dL (1.80-2.40) Total Bilirubin 0.6 mg/dL (0.2-1.0) Aspartate Amino Transf (AST/SGOT) 15 U/L (10-37) Alanine Aminotransferase (ALT/SGPT) 16 U/L (12-78) Alkaline Phosphatase 56 U/L (50-136) Total Protein 5.2 g/dL (6.0-8.3) L Albumin 2.1 g/dL (3.5-5.0) L Urine Color LIGHT-YELLOW (YELLOW) Urine Appearance CLEAR (CLEAR) Urine pH 7.5 (5.0-8.0) Urine Specific [place] 1.027 (1.001-1.031) Urine Protein 30 mg/dL (NEGATIVE) H Urine Glucose (UA) NEGATIVE mg/dL (NEGATIVE) Urine Ketones NEGATIVE mg/dL (NEGATIVE) Urine Occult Blood NEGATIVE (NEGATIVE) Urine Nitrate NEGATIVE (NEGATIVE) Urine Bilirubin NEGATIVE mg/dL (NEGATIVE) Urine Urobilinogen 0.2 mg/dL (0.2-1.0) Urine Leukocyte Esterase NEGATIVE [place]/uL Urine RBC Pending Urine WBC Pending Urine Bacteria Pending LAB RESULTS 07/15/24 11:55: Urine Color LIGHT-YELLOW, Urine Appearance CLEAR, Urine pH 7.5, Urine Specific [place] 1.027, Urine Protein 30H, Urine Glucose (UA) NEGATIVE, Urine Ketones NEGATIVE, Urine Occult Blood NEGATIVE, Urine Nitrate NEGATIVE, Urine Bilirubin NEGATIVE, Urine Urobilinogen 0.2, Urine Leukocyte Esterase NEGATIVE 07/15/24 04:23: White Blood Count 21.1H, Red Blood Count 3.71L, Hemoglobin 8.4L, Hematocrit 27.3L, Mean Corpuscular Volume 73.6L, Mean Corpuscular Hemoglobin 22.6L, Mean Corpuscular Hemoglobin Concent 30.8L, Red Cell Distribution Width 17.0H, Platelet Count 438H, Mean Platelet Volume 10.6H, Immature Granulocyte % (Auto) 0.9, Neutrophils (%) (Auto) 82.0H, Lymphocytes (%) (Auto) 6.2L, Monocytes (%) (Auto) 7.0, Eosinophils (%) (Auto) 3.6, Basophils (%) (Auto) 0.3, Neutrophils # (Auto) 17.3H, Lymphocytes # (Auto) 1.3, Monocytes # (Auto) 1.5H, Eosinophils # (Auto) 0.76H, Basophils # (Auto) 0.07, Absolute Immature Granulocyte (auto 0.18, Nucleated Red Blood Cells 0.0, Sodium Level 136, Potassium Level 2.9*L, Chloride Level 101, Carbon Dioxide Level 32, Blood Urea Nitrogen 11, Creatinine 1.0, Glomerular Filtration Rate Calc 76, Random Glucose 116H, Total Calcium 8.0L, Phosphorus Level 2.8, Magnesium Level 1.80, Total Bilirubin 0.6, Aspartate Amino Transf (AST/SGOT) 15, Alanine Aminotransferase (ALT/SGPT) 16, Alkaline Phosphatase 56, Total Protein 5.2L, Albumin 2.1L 07/14/24 18:28: Influenza Type A Antigen Negative For Type A, Influenza Type B Antigen Negative For Type B, SARS-CoV-2 Antigen (Rapid) PRESUMPTIVE NEGATIVE 07/14/24 10:28: Red Blood Cell Morphology See comments, Reticulocyte Count (auto) 1.62031, Immature Reticulocyte Fraction 9.80H, Iron Level 6L, Total Iron Binding Capacity 230L, Percent Iron Saturation 2.6L, Ferritin 35, Vitamin B12 Level 657, Procalcitonin 4.17H 07/13/24 17:40: White Cell Morphology Comment See comments ASTRID FRAZIER MD Jul 15, 2024 13:07
[2024-07-15 13:38] LABS: INR 1.01 (0.85-1.15); PROTHROMBIN TIME 10.7 SEC (9.6-11.6)
--- NOTE | 2024-07-15 14:40 | NUR ---
Cardiology consult Paged Dr. Church for consult, pending call back.
--- NOTE | 2024-07-15 15:11 | NUR ---
Cardiology consult New order to consult Dr. Mo Redmond for surgical clearance, orders carried, paged Dr. Redmond advanced practice professional to make aware.
--- NOTE | 2024-07-15 16:25 | NUR ---
Nutritional Note: Pt has been NPO x 4 day and prior to that intake was limited due to lack of appetite. Pt with a reported 20# wt loss in 2 months as per nursing. Pt with hx of ETOH intake but quite in 04/2024. Nutritional concerns: increased nutrient needs, possible Fe deficiency, and prevent wt loss. Recommend: -initiate PN support due to NPO status, ongoing obstruction and inadequate energy intake. -Monitor refeeding syndrome risk up initiation of nutrition: replete electrolytes before advancing nutrition (K+, phos and mg) Start at 50%-75% of estimated needs and advance as tolerated. -correct k+ prior to starting TPN. TPN RECOMMENDATIONS -When medically feasible and cleared by MD, consider CLinimix 5/15 % via central line at a rate of 75ml/hr, Include 10ml adult MVI and 3ml trace elements. TPN to provide 1800ml total volume, 90gm pro, 270gm dextrose, 1278kcal/day.GIR 3.5 -Lipid emulsion x 3 weekly M, W, F to prevent essential fatty acid deficiency -Check Lipid Panel weekly on Mondays -MD to Adjust TPN based on daily assessments -Transition to EN when feasible if pt remains NPO and partial GI restored consider J-tube feeding - Electrolyte replacements per protocol -Monitor TPN tolerance, wt, and labs -FE Iv supplementation if medically feasible. -If No BM >3days consider bowel stimulant. - Notify RD if additional nutrition concerns arise. SEE RD Nutritional Assessment for additional assessment information. Addendum: 07/15/24 at [address] Amended: Links added.
--- NOTE | 2024-07-15 17:05 | PN ---
[facility] PROGRESS NOTE Date Patient Seen: Jul 15, 2024 Time of Visit: 17:02 Supervising Physician: THALIA GORDON Primary Care Physician: DR ISAACS Outpatient Specialists: [ ] Inpatient Consults: DR RUEDA - GI PROBLEM LIST: Acute Gastric Outlet Obstruction secondary to Gastric Mass Right Sided Aspiration PNA likey due to above. Acute Dehydration Failure to thrive secondary to #1 Electrolyte derangements Microcytic Anemia secondaryto Iron deficiency HTN GERD PLAN : continue D5 NS at this time ,& PPN for nutrition as patient has been npo for pr olonged period of time Further evaluate leukocytosis with UA /CXR / Procalcitonin and peripheral smear- Secondary to Right sided PNA Continue zosyn and nebulizations, sputum cultures Oncology and General Surgery -following Cardiologyconsult for preop clearance Pain control Follow Echo results DVT prophylaxis / GI bleeding prophylaxis CBC CMP daily INTERVAL HISTORY: Patient was seen and examined today by me,with family at bedside. CT imaging . , does not reveal any evidence of metastatic disease. He was also evaluated by Dr. Feng. At this time we are awaiting further Recommendations , Since No met dz is noted it is likley once cleared by Cardiology Oncology then a attempted resection could be considered during his hospitalization. continues on TPN, NG tube in place Leukocytosis is trending down currently at 21. Hemoglobin at 8.4 and downtrending. Platelet count of 438. Electrolyte derangements with a potassium of 2.9 and a magnesium, Continues on PPN REVIEW OF SYSTEMS: 12 point ROS reviewed with patient. Pertinent positives mentioned above. Otherwise negative. PHYSICAL EXAM: GENERAL: alert, weak, awake oriented x 3 HEENT: EOMI, Sclera non icteric, moist mucosa ng tube to right nare NECK: Supple, no JVD, trachea midline LUNGS: Clear breath sounds bilaterally. No wheezes HEART: Regular rate and rhythm. Normal S1 and S2, without murmurs ABD: Abdomen soft, nontender. Bowel sounds present EXT: No clubbing cyanosis or edema NEURO: Alert and oriented to person, follows commands Vital Signs (last 8hr) Date Time Temp Pulse Resp B/P (MAP) Pulse Ox O2 Delivery O2 Flow Rate FiO2 07/15/24 16:00 99.1 66 18 91/54 98 Nasal Cannula 3.0 07/15/24 12:00 99.0 66 16 90/50 97 Room Air 07/15/24 11:13 64 18 07/15/24 11:12 64 18 N/Cannula Low lpm 3.0 32 LABS: Hematology Labs: Test 07/15/24 04:23 07/14/24 10:28 07/13/24 17:40 Range/Units White Blood Count 21.1 H 4.8-10.8 K/uL Red Blood Count 3.71 L 4.50-6.20 MIL/uL Hemoglobin 8.4 L 14.0-18.0 g/dL Hematocrit 27.3 L 42-54 % Mean Corpuscular Volume 73.6 L 79-99 fL Mean Corpuscular Hemoglobin 22.6 L 27.0-33.0 pg Mean Corpuscular Hemoglobin Concent 30.8 L 32.0-36.0 g/dL Red Cell Distribution Width 17.0 H 11.0-15.5 % Platelet Count 438 H 130-400 K/uL Mean Platelet Volume 10.6 H 7.5-10.5 fL Immature Granulocyte % (Auto) 0.9 0-1 % Neutrophils (%) (Auto) 82.0 H 40.0-77.0 % Lymphocytes (%) (Auto) 6.2 L 21.0-51.0 % Monocytes (%) (Auto) 7.0 3.0-13.0 % Eosinophils (%) (Auto) 3.6 0.0-8.0 % Basophils (%) (Auto) 0.3 0.0-5.0 % Neutrophils # (Auto) 17.3 H 1.8-7.7 K/uL Lymphocytes # (Auto) 1.3 1.0-4.8 K/uL Monocytes # (Auto) 1.5 H 0.1-1.0 K/uL Eosinophils # (Auto) 0.76 H 0.00-0.70 K/uL Basophils # (Auto) 0.07 0.00-0.20 K/uL Absolute Immature Granulocyte (auto 0.18 0-1 K/uL Nucleated Red Blood Cells 0.0 0.0-0.19 % Red Blood Cell Morphology See comments Reticulocyte Count (auto) 1.79813 0.42-2.23 % Immature Reticulocyte Fraction 9.80 H 0.18-0.48 % White Cell Morphology Comment See comments Chemistry Labs: Test 07/15/24 04:23 07/14/24 10:28 Range/Units Sodium Level 136 136-145 mmol/L Potassium Level 2.9 *L 3.5-5.1 mmol/L Chloride Level 101 101-111 mmol/L Carbon Dioxide Level 32 21-32 mmol/L Blood Urea Nitrogen 11 7-18 mg/dL Creatinine 1.0 0.5-1.3 mg/dL Glomerular Filtration Rate Calc 76 >90 mL/min Random Glucose 116 H 70-105 mg/dL Total Calcium 8.0 L 8.5-10.1 mg/dL Phosphorus Level 2.8 2.5-4.9 mg/dL Magnesium Level 1.80 1.80-2.40 mg/dL Total Bilirubin 0.6 0.2-1.0 mg/dL Aspartate Amino Transf (AST/SGOT) 15 10-37 U/L Alanine Aminotransferase (ALT/SGPT) 16 12-78 U/L Alkaline Phosphatase 56 50-136 U/L Total Protein 5.2 L 6.0-8.3 g/dL Albumin 2.1 L 3.5-5.0 g/dL Iron Level 6 L 65-175 mcg/dL Total Iron Binding Capacity 230 L 250-450 mcg/dL Percent Iron Saturation 2.6 L 30-44 % Ferritin 35 30-400 ng/mL Vitamin B12 Level 657 193-986 pg/mL Procalcitonin 4.17 H 0.05-0.5 ng/mL Coagulation Labs: Test 07/15/24 13:21 Range/Units Prothrombin Time 10.7 9.6-11.6 SEC Prothromb Time International Ratio 1.01 0.85-1.15 DIAGNOSTICS / RADIOLOGY RESULTS: [ ] PLAN NEURO: Minimize central acting medications as possible. Maintain fall precautions, adequate lighting during the day PULMONARY: Supplemental 02 as needed. Maintain aspiration precautions at all times CARDIOVASCULAR: Follow hemodynamics. Vital signs per facility protocol GI & NUTRITION: Continue with nutritional support. Continue stool softeners and laxatives as needed. KIDNEYS & ELECTROLYTES: Strict monitoring of intake, output and overall fluid balance. Avoid nephrotoxic medications to the extent possible. Medications to be dosed according to renal function. Monitor electrolytes and replace as needed ENDOCRINE: Maintain blood glucose between 100-180 at all times. Hypoglycemia protocol in place INFECTIOUS DISEASE: Trend temperature, WBC and procalcitonin level Follow cultures, deescalate antibiotics as soon as possible. Panculture if new onset fever ONCOLOGY/HEMATOLOGY/COAGULATION: Monitor for s/s of bleeding Monitor hemoglobin, coagulation studies as needed SKIN: Pressure ulcer prevention per facility protocol Specialty mattress ORTHO/REHAB: Continue PT/OT Prophylaxis: Continue GI and DVT prophylaxis Code Status: Full Resuscitation Disposition: TBD Other: Total patient care time exceeds 35 minutes excluding all procedures. ALEX NAVA Jul 15, 2024 17:05
--- NOTE | 2024-07-15 17:54 | HMCSR ---
APPROVED REPORT EXAM: Two-dimensional and M-mode echocardiogram with Doppler and color Doppler. INDICATION ICD: Chest Pain 2D Dimensions RVDd3.1 cmLVEF(%)71.7 (>50%)LVED Vol(simp.)76.9 mL IVSd0.9 (0.7-1.1cm)FS(%)41 %LVES Vol(simp.)33.2 mL LVDd5.0 (3.8-5.6cm)LA (2D)4.0 (1.6-4.0cm)LVEF(%, simp.)57 % PWd1.0 (0.7-1.1cm)Ao Root(2D)3.3 (2.0-3.7cm)LA ESV INDEX (BP)39.05 mL/m2 LVDs2.9 (2.5-4.0cm)LVOT diam2.0 (1.8-2.4cm) IVC diam1.6 cm Deformation Strain Apical 4-19.0 % Apical 2-17.0 % Apical 3-19.0 % Global Strain-19.0 % M-Mode Dimensions EPSS1.2 cm LA (MM)3.8 (1.6-4.0cm) Ao Root(MM)3.2 (2.0-3.7cm) Aortic Valve AoV Vmax1.6 m/Alexander Peak GR9.8 mmHgLVOT Vmax1.2 m/s AoV VTI0.3 mAo Mean GR4.8 mmHgLVOT VTI0.23 m DARRYN (VMAX)2.5 cm2Al P1/2T391 msAVA (VTI) 2.5 cm2 Mitral Valve MV E Vmax53.2 cm/sDECEL Zhup735 ms MV A Vmax69.4 cm/sP 1/2 T64 ms E/A ratio0.8MVA (PHT)3.5 cm2 TDI E/E' Medial8.9E/E' Lateral6.7 Medial E' Peak V6.00 cm/sLateral E' Peak V8.00 cm/s Tricuspid Valve TR Vmax2.4 m/sRVSP23.7 mmHg TR Peak GR23.7 mmHg Left Ventricle Left ventricular cavity size is normal. GS -19%. There is normal LV segmental wall motion. There is n ormal left ventricular wall thickness. LVEF is 60-65%. The left ventricular diastolic function is nor mal. Right Ventricle The right ventricle is normal size. The right ventricular systolic function is normal. Atria The left atrium size is normal. The right atrium size is normal. Aortic Valve Aortic valve is trileaflet. Mild aortic regurgitation. There is no aortic valvular stenosis. Mitral Valve The mitral valve is normal in structure and function. There is no mitral valve regurgitation noted. T here is no mitral valve stenosis. Tricuspid Valve The tricuspid valve leaflets appear normal. There is mild tricuspid valve regurgitation noted. Pulmonic Valve The pulmonary valve is normal in structure and function. There is no pulmonic valvular regurgitation. Great Vessels The aortic root is normal in size. The IVC is normal in size and collapses >50% with inspiration. Pericardium No pericardial effusion. Conclusion LVEF is 60-65%. GS -19%. There is normal LV segmental wall motion. There is no aortic valvular stenosis. There is no mitral valve regurgitation noted. The aortic root is normal in size.
--- NOTE | 2024-07-15 18:04 | CONS ---
Cardiac Consult Note CONSULT NOTE DATE OF SERVICE: Jul 13, 2024 at 05:41 REFERRING PROVIDER: NATHAN JAUREGUI MD REASON FOR CONSULT: Preoperative assessment prior to noncardiac surgery HPI: This is an 78-year-old gentleman who had an EGD done this morning secondary to decreased appetite and weight loss that had persisted over the last 6 months with the last fall male being taken into proximally 2 weeks ago who was noted to have a gastric outlet obstruction on EGD this morning and was admitted for further evaluation and care. Patient states he remembers having some kind of cardiac procedure by Dr. Allred many years ago but he is not sure of any intervention was done. He does have a brother who had open-heart surgery in the past. The patient has a remote smoking history and quit drinking approximately 3 months ago. There was concerns for cancer although biopsies are currently pending. He has been seen by Oncology. He currently denies any chest pain pressure tightness PND orthopnea or lower extremity swelling. He does admit to weight loss. He denies any prior myocardial infarction TIA CVA stroke or but diabetes mellitus. A 2D echocardiogram was ordered which is noted to be essentially normal in regards to left ventricular size function with no significant valvulopathy present and no evidence aortic stenosis or significant mitral regurgitation. ROS: See HPI. PMHX: GERD Gastric mass diagnosed 07/15/2024 with biopsies pending Octogenarian state Former smoker Possible coronary intervention done remotely although patient does not know details done by Dr. Allred and [facility] PSHX: Noncontributory FH: Brother with CABG SOCIAL: Former smoker and drinker PHYSICAL EXAMINATION: GENERAL: No acute distress. Thin appearing male appears stated age HEENT: Normocephalic, atraumatic. CARDIAC: Positive S1 and S2. No murmurs. LUNGS: Clear to auscultation bilaterally. ABDOMEN: Bowel sounds present, soft, nontender. EXTREMITIES: No edema bilaterally. NEUROLOGIC: Cranial nerves 2-12 grossly intact. PSYCHIATRIC: Calm. ASSESSMENT: Preoperative assessment prior to noncardiac surgery PLAN: At this time no surgery has actually been scheduled however a 2D echocardiogram was done revealing patient had preserved left ventricular size and function. Patient does have an EKG pending. At this time he gives no symptoms consistent with unstable angina or congestive heart failure and echocardiography is unreve aling or concerning for any aortic stenosis or significant valvular heart disease. Ejection fraction is noted to be normal and patient currently is asymptomatic so would consider him at most intermediate risk to proceed with an intermediate risk operation although no operation is actually planned. We are pending results of biopsy to see approach at this time regarding potential p reoperative chemotherapy radiation therapy versus proceeding with tumor resection if adenocarcinoma is indeed found. Patient will be cleared either way but would recommend continuing the patient on telemetry perioperatively and trying to avoid any severe anemia. We will continue to follow through the weekend and await plans on further workup. Vital Signs 07/14/24 07/14/24 07/14/24 07/14/24 18:53 18:54 20:00 20:00 Temp 97.3 Pulse 86 87 70 Resp 18 19 17 B/P (MAP) 102/52 Pulse Ox 97 O2 Delivery N/Cannula Low lpm Nasal Cannula* Nasal Cannula O2 Flow Rate 3.0 3 3.0 FiO2 32 32 07/14/24 07/15/24 07/15/24 07/15/24 23:42 00:00 04:00 06:43 Temp 100.2 98.4 Pulse 85 68 66 67 Resp 19 17 17 18 B/P (MAP) 97/58 96/59 Pulse Ox 97 99 O2 Delivery Nasal Cannula Nasal Cannula O2 Flow Rate 3.0 3.0 07/15/24 07/15/24 07/15/24 07/15/24 06:43 08:00 11:12 11:13 Temp 99.5 Pulse 67 75 64 64 Resp 18 18 18 18 B/P (MAP) 88/49 Pulse Ox 98 O2 Delivery N/Cannula Low lpm Room Air N/Cannula Low lpm O2 Flow Rate 3.0 3.0 FiO2 32 32 07/15/24 07/15/24 12:00 16:00 Temp 99.0 99.1 Pulse 66 66 Resp 16 18 B/P (MAP) 90/50 91/54 Pulse Ox 97 98 O2 Delivery Room Air Nasal Cannula O2 Flow Rate 3.0 Laboratory Tests Test 07/14/24 18:28 07/15/24 04:23 07/15/24 11:55 07/15/24 13:21 Influenza Type A Antigen Negative For Type A Influenza Type B Antigen Negative For Type B SARS-CoV-2 Antigen (Rapid) PRESUMPTIVE NEGATIVE White Blood Count 21.1 K/uL (4.8-10.8) Red Blood Count 3.71 MIL/uL (4.50-6.20) Hemoglobin 8.4 g/dL (14.0-18.0) Hematocrit 27.3 % (42-54) Mean Corpuscular Volume 73.6 fL (79-99) Mean Corpuscular Hemoglobin 22.6 pg (27.0-33.0) Mean Corpuscular Hemoglobin Concent 30.8 g/dL (32.0-36.0) Red Cell Distribution Width 17.0 % (11.0-15.5) Platelet Count 438 K/uL (130-400) Mean Platelet Volume 10.6 fL (7.5-10.5) Immature Granulocyte % (Auto) 0.9 % (0-1) Neutrophils (%) (Auto) 82.0 % (40.0-77.0) Lymphocytes (%) (Auto) 6.2 % (21.0-51.0) Monocytes (%) (Auto) 7.0 % (3.0-13.0) Eosinophils (%) (Auto) 3.6 % (0.0-8.0) Basophils (%) (Auto) 0.3 % (0.0-5.0) Neutrophils # (Auto) 17.3 K/uL (1.8-7.7) Lymphocytes # (Auto) 1.3 K/uL (1.0-4.8) Monocytes # (Auto) 1.5 K/uL (0.1-1.0) Eosinophils # (Auto) 0.76 K/uL (0.00-0.70) Basophils # (Auto) 0.07 K/uL (0.00-0.20) Absolute Immature Granulocyte (auto 0.18 K/uL (0-1) Nucleated Red Blood Cells 0.0 % (0.0-0.19) Sodium Level 136 mmol/L (136-145) Potassium Level 2.9 mmol/L (3.5-5.1) Chloride Level 101 mmol/L (101-111) Carbon Dioxide Level 32 mmol/L (21-32) Blood Urea Nitrogen 11 mg/dL (7-18) Creatinine 1.0 mg/dL (0.5-1.3) Glomerular Filtration Rate Calc 76 mL/min (>90) Random Glucose 116 mg/dL (70-105) Total Calcium 8.0 mg/dL (8.5-10.1) Phosphorus Level 2.8 mg/dL (2.5-4.9) Magnesium Level 1.80 mg/dL (1.80-2.40) Total Bilirubin 0.6 mg/dL (0.2-1.0) Aspartate Amino Transf (AST/SGOT) 15 U/L (10-37) Alanine Aminotransferase (ALT/SGPT) 16 U/L (12-78) Alkaline Phosphatase 56 U/L (50-136) Total Protein 5.2 g/dL (6.0-8.3) Albumin 2.1 g/dL (3.5-5.0) Urine Color LIGHT-YELLOW (YELLOW) Urine Appearance CLEAR (CLEAR) Urine pH 7.5 (5.0-8.0) Urine Specific [place] 1.027 (1.001-1.031) Urine Protein 30 mg/dL (NEGATIVE) Urine Glucose (UA) NEGATIVE mg/dL (NEGATIVE) Urine Ketones NEGATIVE mg/dL (NEGATIVE) Urine Occult Blood NEGATIVE (NEGATIVE) Urine Nitrate NEGATIVE (NEGATIVE) Urine Bilirubin NEGATIVE mg/dL (NEGATIVE) Urine Urobilinogen 0.2 mg/dL (0.2-1.0) Urine Leukocyte Esterase NEGATIVE Juan Jose/uL Urine RBC 11-25 /HPF (0-1) Urine WBC 11-25 /HPF (0-1) Urine Bacteria None /HPF (None Seen) Prothrombin Time 10.7 SEC (9.6-11.6) Prothromb Time International Ratio 1.01 (0.85-1.15) Current Medications Medications Dose Ordered Sig/Nory Route PRN Reason Start Time Stop Time Status Last Admin Sodium Chloride 1,000 ml @ As Directed STK-MED ONCE IV 07/13/24 06:08 07/13/24 06:08 DC 07/13/24 06:52 Propofol 200 mg STK-MED ONCE IV 07/13/24 10:35 07/13/24 10:35 DC Famotidine 20 mg BID IV 07/13/24 21:00 08/12/24 20:59 07/15/24 09:09 Dextrose/Sodium Chloride 1,000 ml @ 75 mls/hr [id number] IV 07/13/24 11:30 08/12/24 11:29 07/14/24 14:36 Enoxaparin Sodium 30 mg DAILY SQ 07/15/24 09:00 08/14/24 08:59 07/15/24 09:10 Iohexol 35,000 mg STK-MED ONCE IV 07/14/24 13:15 07/14/24 13:16 DC Piperacillin Sod/ Tazobactam Sod 3.375 gm Q8H IV 07/14/24 17:00 07/24/24 16:59 07/15/24 09:09 Pharmacy Profile Note 1 each ONCE MISC 07/14/24 17:00 07/15/24 09:21 DC Ipratropium [place] 0.5 mg Q6H IH 07/14/24 17:00 08/13/24 16:59 07/15/24 11:13 Amino Acids/ Dextrose 2,000 ml @ 83.333 mls/ hr ONCE ONCE IV 07/15/24 08:00 07/15/24 09:21 DC Amino Acids/ Electrolytes/ Dextrose 2,000 ml @ 83 mls/hr ONCE ONCE IV 07/15/24 09:30 07/16/24 09:35 07/15/24 11:52 Reported Medications Omeprazole (Omeprazole) 40 Mg Capsule.dr, 1 CAP PO DAILY for 30 Days, #30 CAP 0 Refills 07/13/24 Clopidogrel Bisulfate (Clopidogrel) 75 Mg Tablet, 1 TAB PO DAILY for 30 Days, #30 TAB 0 Refills 07/13/24 Ramipril (Ramipril) 5 Mg Capsule, 1 CAP PO DAILY for 30 Days, #30 CAP 0 Refills 07/13/24 NATHAN JAUREGUI MD Jul 15, 2024 18:04
--- NOTE | 2024-07-15 19:33 | EKG ---
[facility] Test Date: 2024-07-15 Test Time: 19:29:12 Pat Name: ABELINO ENGLAND Department: [facility] Room: 404 1 Gender: M Mgmt Consultant: rosendo : 1945 Requested By: MO REDMOND Order Number: [id number] Reading MD: Mo Redmond Measurements Intervals Nora Rate: 70 P: 36 IN: 134 QRS: 70 QRSD: 78 T: 60 QT: 364 QTc: 393 Interpretive Statements Normal sinus rhythm No previous ECG available for comparison Electronically Signed On 07-16-2024 12:02:42 SECURITY TEST ENGINEER by Mo Redmond Please click the below link to view image of tracing.
--- NOTE | 2024-07-15 21:54 | HMCIMG ---
INDICATION: PICCLINE PLACEMENT VERIFICATION TECHNIQUE: CHEST 1VW COMPARISON: None FINDINGS AND IMPRESSION: Prominent bilateral interstitial markings which may represent bronchitis or vascular congestion in the proper clinical setting. Left PICC line terminating in the SVC. * Enteric tube terminates in the distal esophagus and should be advanced.. Cardiac silhouette is within normal limits. Mild degenerative changes of the spine. The visualized upper abdomen appears unremarkable.
[2024-07-16] VITALS (28 sets, daily range): BP systolic 36–141; BP diastolic 36–75; PULSE 60–76; RESP 14–20; TEMP 97.1–99.4; O2SAT 93–97
--- NOTE | 2024-07-16 04:49 | NUR ---
CONSENT FOR AM PROCEDURE CALLED PATIENT'S SON PAULINA ENGLAND AT THIS TIME IN ATTEMPT TO OBTAIN TELEPHONE CONSENT FOR AM EGD C/ MAC/ EUS PATIENT STATES UNABLE TO SIGN FOR SELF, HOWEVER NO ANSWER, VOICEMAIL LEFT, PLAN OF CARE ONGOING
[2024-07-16 04:53] LABS: BASOPHILS # (AUTO) 0.06 K/uL (0.00-0.20); BASOPHILS % (AUTO) 0.4 % (0.0-5.0); EOSINOPHILS # (AUTO) 1.09 K/uL (0.00-0.70); EOSINOPHILS % (AUTO) 7.8 % (0.0-8.0); HEMATOCRIT 26.8 % (42-54); IMMATURE GRANULOCYTE ABSOLUTE 0.08 K/uL (0-1); LYMPHOCYTES # (AUTO) 1.4 K/uL (1.0-4.8); LYMPHOCYTES % (AUTO) 9.8 % (21.0-51.0); MEAN CORPUSCULAR HEMOGLOBIN 22.8 pg (27.0-33.0); MEAN CORPUSCULAR VOLUME 73.6 fL (79-99); MONOCYTES # (AUTO) 1.4 K/uL (0.1-1.0); MONOCYTES % (AUTO) 9.8 % (3.0-13.0); NEUTROPHILS % (AUTO) 71.6 % (40.0-77.0); PLATELET COUNT (AUTO) 377 K/uL (130-400); RED BLOOD CELL COUNT(AUTO) 3.64 MIL/uL (4.50-6.20); RED CELL DISTRIBUTION WIDTH 16.9 % (11.0-15.5); WHITE BLOOD COUNT (AUTO) 13.9 K/uL (4.8-10.8)
[2024-07-16 05:13] LABS: ALBUMIN 1.9 g/dL (3.5-5.0); BILIRUBIN,TOTAL 0.3 mg/dL (0.2-1.0); CREATININE 0.8 mg/dL (0.5-1.3); POTASSIUM 3.3 mmol/L (3.5-5.1); TOTAL PROTEIN, SERUM 5.2 g/dL (6.0-8.3)
--- NOTE | 2024-07-16 06:02 | NUR ---
PROCEDURE TEXT MESSAGE SENT TO DR. RUEDA WITH SUMMARY OF CARDIAC CLEARANCE RESULTS.
--- NOTE | 2024-07-16 06:24 | NUR ---
REGARDING CARDIAC CLEARANCE: STATES THE CASE WILL PROCEED SCHEDULED
[2024-07-16] MEDS ORDERED: proPOFol 10 MG/ML 20ML VIAL IV ONE (07:18)
[2024-07-16] MEDS ORDERED: LIDOCAINE PF 100MG/5ML (2%) SYRINGE 5ML ONE (07:18)
[2024-07-16] MEDS ORDERED: phenylEPHRINE HCL 10 MG/ML 1ML VIAL IV ONE (07:26)
--- NOTE | 2024-07-16 07:43 | PN ---
This is a case of an 78-year-old man that had persistent symptoms of gastroesophageal reflux disease with a past medical history of hypertension that was evaluated by Gastroenterology on July 01, 2024. Given his persistent symptoms the patient was set up to do an EGD and colonoscopy. An EGD was 1st done this morning and he was noted to have a gastric mass consistent with a gastric outlet obstruction. At this point our services were contacted for admission . Last meal intake was about 2 weeks ago with a solid ., he has been taking ensures and clear liquid since then without much appetite . BMs have been normal, last one this AM No emesis reported, + nausea . He jordan have a history of remote tobacco use , but quit about 10 yrs ago . He did partake in ETOH use about 4-5 drinks a day but quit 04/2024 PHYSICAL EXAM: GENERAL: alert, weak, awake oriented x 3 HEENT: EOMI, Sclera non icteric, moist mucosa NECK: Supple, no JVD, trachea midline LUNGS: Clear breath sounds bilaterally. No wheezes HEART: Regular rate and rhythm. Normal S1 and S2, without murmurs ABD: Abdomen soft, nontender. Bowel sounds present EXT: No clubbing cyanosis or edema NEURO: Alert and oriented to person, follows commands Assessment Acute Gastric Outlet Obstruction secondary to Gastric Mass. EGD was done with biopsy is sent to his local pathology. Acute Dehydration Failure to thrive secondary to #1 Electrolyte derangements Microcytic Anemia Leukocytosis , unclear etiology HTN GERD PLAN : 1. Will follow-up with the result of pathology.We have to wait until final report. If it is adenocarcinoma then this patient may be could have surgery done. But if it is different pathology such as GI stromal tumor, lymphoma and then the treatment will be different. 2. CT scan of the abdomen showing 3.4 x 4.6 cm gastric mass to the antral position. This patient was evaluated by surgeon. 3. I have long discussion with the patient and family member regarding the plan of care. I answer all question and concern and I spent more than 35 minutes. My nurse was translating to the patient and family member regarding our plan of care. 4. This patient to receive iron deficiency anemia. The patient could benefit from IV iron daily for 3 days while the patient in the hospital. 5. No need for blood product transfusion at this time Vitals/Labs Vital Signs Date Time Temp Pulse Resp B/P (MAP) Pulse Ox O2 Delivery O2 Flow Rate FiO2 07/16/24 06:38 65 18 N/A Room Air 21 07/16/24 04:00 98.8 99/57 94 07/15/24 20:00 3 Laboratory Tests 07/16/24 04:20 Medications Current Medications Sodium Chloride 1,000 ml @ As Directed STK-MED ONCE IV Last administered on 07/13/24at 06:52; Start 07/13/24 at 06:08; Stop 07/13/24 at 06:08; Status DC Propofol 200 mg STK-MED ONCE IV; Start 07/13/24 at 10:35; Stop 07/13/24 at 10:35; Status DC Diphenhydramine HCl 25 mg Q6H PRN IV; Start 07/13/24 at 11:30; Stop 08/12/24 at 11:29 Ondansetron HCl 4 mg Q6H PRN IV; Start 07/13/24 at 11:30; Stop 08/12/24 at 11:29 Famotidine 20 mg BID IV Last administered on 07/15/24at 20:37; Start 07/13/24 at 21:00; Stop 08/12/24 at 20:59 Hydralazine HCl 25 mg Q6H PRN PO; Start 07/13/24 at 11:30; Stop 08/12/24 at 11:29 Artificial Tears 1 DROP OP PRN DRY EYES Q2H PRN OP; Start 07/13/24 at 11:30; Stop 08/12/24 at 11:29 Dextrose 50 ml AD PRN IV; Start 07/13/24 at 11:30; Stop 08/12/24 at 11:29 Glucagon 1 mg AD PRN IM; Start 07/13/24 at 11:30; Stop 08/12/24 at 11:29 Dextrose/Sodium Chloride 1,000 ml @ 75 mls/hr [id number] IV Last administered on 07/14/24at 14:36; Start 07/13/24 at 11:30; Stop 08/12/24 at 11:29 Enoxaparin Sodium 30 mg DAILY SQ Last administered on 07/15/24at 09:10; Start 07/15/24 at 09:00; Stop 08/14/24 at 08:59 Iohexol 35,000 mg STK-MED ONCE IV; Start 07/14/24 at 13:15; Stop 07/14/24 at 13:16; Status DC Piperacillin Sod/ Tazobactam Sod 3.375 gm Q8H IV Last administered on 07/16/24at 01:01; Start 07/14/24 at 17:00; Stop 07/24/24 at 16:59 Pharmacy Profile Note 1 each ONCE MISC; Start 07/14/24 at 17:00; Stop 07/15/24 at 09:21; Status DC Ipratropium [place] 0.5 mg Q6H IH Last administered on 07/16/24at 06:35; Start 07/14/24 at 17:00; Stop 08/13/24 at 16:59 Amino Acids/ Dextrose 2,000 ml @ 83.333 mls/ hr ONCE ONCE IV; Start 07/15/24 at 08:00; Stop 07/15/24 at 09:21; Status DC Potassium Chloride 100 ml @ 50 mls/hr AD PRN IV Last administered on 07/16/24at 05:51; Start 07/15/24 at 06:00; Stop 08/14/24 at 05:59 Amino Acids/ Electrolytes/ Dextrose 2,000 ml @ 83 mls/hr ONCE ONCE IV Last administered on 07/15/24at 11:52; Start 07/15/24 at 09:30; Stop 07/16/24 at 09:35 Propofol 200 mg STK-MED ONCE IV; Start 07/16/24 at 07:18; Stop 07/16/24 at 07:24; Status DC Lidocaine HCl 100 mg STK-MED ONCE .ROUTE; Start 07/16/24 at 07:18; Stop 07/16/24 at 07:24; Status DC Phenylephrine HCl 10 mg STK-MED ONCE IV; Start 07/16/24 at 07:26; Stop 07/16/24 at 07:27; Status DC ASTRID FRAZIER MD Jul 16, 2024 07:43
--- NOTE | 2024-07-16 10:33 | NUR ---
RESULTS RECEIVED OF EUS DONE THIS MORNING. DX: ADENOCARCINOMA. DR FRAZIER HERE TO F/U WITH PATIENT. PER DR FREDDIE NI TO BE CONTACTED WITH FINDINGS FROM PROCEDURE.. DR NI NOTIFIED.. PER DR NI PATIENT WILL NEED SX POSSIBLY SOMETIME THIS WEEK. HE WILL DISCUSS WITH GI TEAM WELL PRIMARY TEAM.
[2024-07-16] MEDS: CLINIMIX-E4.25%AA/D5+LYT2000ML 2,000 ML IV ONE (11:46)
--- NOTE | 2024-07-16 15:41 | PN ---
[facility] PROGRESS NOTE Date Patient Seen: Jul 16, 2024 Time of Visit: 15:38 Supervising Physician: SIMON DUNBAR Primary Care Physician: DR ISAACS Outpatient Specialists: [ ] Inpatient Consults: DR RUEDA - GI PROBLEM LIST: Acute Gastric Outlet Obstruction secondary to Gastric Mass Right Sided Aspiration PNA likey due to above. Acute Dehydration Failure to thrive secondary to #1 Electrolyte derangements Microcytic Anemia secondaryto Iron deficiency HTN GERD PLAN : continue D5 NS at this time ,& PPN for nutrition as patient has been npo for prolonged period of time Further evaluate leukocytosis with UA /CXR / Procalcitonin and peripheral smear- Secondary to Right sided PNA , improving Continue zosyn and nebulizations, sputum cultures Oncology and General Surgery -following Cardiology has cleared as intermediate risk - pending surgery date Pain control Follow Echo results DVT prophylaxis / GI bleeding prophylaxis CBC CMP daily INTERVAL HISTORY: Patient was seen and examined today by me,with family at bedside. He continues with NG tube in place with gastric content output - on PPN and D5 IV Fluids CT imaging . , does not reveal any evidence of metastatic disease. He was also evaluated by Dr. Feng. At this time we are awaiting further Recommendations , Since No met disease an attempted resection is being considered during his hospitalization, hoping for this coming week. Leukocytosis is trending down currently at 13.9 Hemoglobin at 8.3 and downtrending. Electrolyte derangements with a potassium of 3.3 being replaced. Family updated on plan of care and all questions answered. REVIEW OF SYSTEMS: 12 point ROS reviewed with patient. Pertinent positives mentioned above. Otherwise negative. PHYSICAL EXAM: GENERAL: alert, weak, awake oriented x 3 HEENT: EOMI, Sclera non icteric, moist mucosa ng tube to right nare NECK: Supple, no JVD, trachea midline LUNGS: Clear breath sounds bilaterally. No wheezes HEART: Regular rate and rhythm. Normal S1 and S2, without murmurs ABD: Abdomen soft, nontender. Bowel sounds present EXT: No clubbing cyanosis or edema NEURO: Alert and oriented to person, follows commands Vital Signs (last 8hr) Date Time Temp Pulse Resp B/P (MAP) Pulse Ox O2 Delivery O2 Flow Rate FiO2 07/16/24 11:15 98.1 61 18 91/55 96 Room Air 07/16/24 10:15 98.1 61 18 90/51 96 Room Air 07/16/24 09:45 98.1 60 18 98/54 96 Room Air 07/16/24 09:15 98.1 60 18 115/68 95 Room Air 07/16/24 09:00 98.1 64 18 110/59 96 Room Air 07/16/24 08:45 98.1 61 16 96/61 96 Room Air 07/16/24 08:30 98.1 65 16 109/61 96 Room Air 07/16/24 08:26 98.1 60 16 98/56 96 Room Air 07/16/24 08:25 97.2 63 16 99/62 96 Room Air 21 07/16/24 08:20 97.2 64 16 99/60 96 Room Air 21 07/16/24 08:15 97.2 63 16 97/58 96 Room Air 07/16/24 08:10 97.2 62 16 100/59 96 Room Air 07/16/24 08:05 97.2 63 16 97/55 95 Room Air 07/16/24 08:00 97.2 65 16 98/56 95 Room Air 07/16/24 08:00 97 Nasal Cannula* 3 32 07/16/24 07:55 97.2 63 16 99/55 98 Room Air 07/16/24 07:50 97.2 63 16 100/55 98 Nasal Cannula 1.0 22 07/16/24 07:45 97.2 62 16 98/54 96 Nasal Cannula 2.0 24 07/16/24 07:40 97.2 60 14 76/36 96 Nasal Cannula 3.0 28 LABS: Hematology Labs: Test 07/16/24 04:20 Range/Units White Blood Count 13.9 #H 4.8-10.8 K/uL Red Blood Count 3.64 L 4.50-6.20 MIL/uL Hemoglobin 8.3 L 14.0-18.0 g/dL Hematocrit 26.8 L 42-54 % Mean Corpuscular Volume 73.6 L 79-99 fL Mean Corpuscular Hemoglobin 22.8 L 27.0-33.0 pg Mean Corpuscular Hemoglobin Concent 31.0 L 32.0-36.0 g/dL Red Cell Distribution Width 16.9 H 11.0-15.5 % Platelet Count 377 130-400 K/uL Mean Platelet Volume 10.5 7.5-10.5 fL Immature Granulocyte % (Auto) 0.6 0-1 % Neutrophils (%) (Auto) 71.6 40.0-77.0 % Lymphocytes (%) (Auto) 9.8 L 21.0-51.0 % Monocytes (%) (Auto) 9.8 3.0-13.0 % Eosinophils (%) (Auto) 7.8 0.0-8.0 % Basophils (%) (Auto) 0.4 0.0-5.0 % Neutrophils # (Auto) 10.0 H 1.8-7.7 K/uL Lymphocytes # (Auto) 1.4 1.0-4.8 K/uL Monocytes # (Auto) 1.4 H 0.1-1.0 K/uL Eosinophils # (Auto) 1.09 H 0.00-0.70 K/uL Basophils # (Auto) 0.06 0.00-0.20 K/uL Absolute Immature Granulocyte (auto 0.08 0-1 K/uL Nucleated Red Blood Cells 0.0 0.0-0.19 % Chemistry Labs: Test 07/16/24 11:45 07/16/24 04:20 07/15/24 04:23 Range/Units Whole Blood Glucose 115 H 70-110 MG/DL Sodium Level 133 L 136-145 mmol/L Potassium Level 3.3 L 3.5-5.1 mmol/L Chloride Level 102 101-111 mmol/L Carbon Dioxide Level 28 21-32 mmol/L Blood Urea Nitrogen 15 7-18 mg/dL Creatinine 0.8 0.5-1.3 mg/dL Glomerular Filtration Rate Calc 89 >90 mL/min Random Glucose 114 H 70-105 mg/dL Total Calcium 8.0 L 8.5-10.1 mg/dL Magnesium Level 2.00 1.80-2.40 mg/dL Total Bilirubin 0.3 # 0.2-1.0 mg/dL Aspartate Amino Transf (AST/SGOT) 13 10-37 U/L Alanine Aminotransferase (ALT/SGPT) 11 #L 12-78 U/L Alkaline Phosphatase 54 50-136 U/L Total Protein 5.2 L 6.0-8.3 g/dL Albumin 1.9 L 3.5-5.0 g/dL Phosphorus Level 2.8 2.5-4.9 mg/dL Coagulation Labs: Test 07/15/24 13:21 Range/Units Prothrombin Time 10.7 9.6-11.6 SEC Prothromb Time International Ratio 1.01 0.85-1.15 DIAGNOSTICS / RADIOLOGY RESULTS: [ ] PLAN NEURO: Minimize central acting medications as possible. Maintain fall precautions, adequate lighting during the day PULMONARY: Supplemental 02 as needed. Maintain aspiration precautions at all times CARDIOVASCULAR: Follow hemodynamics. Vital signs per facility protocol GI & NUTRITION: Continue with nutritional support. Continue stool softeners and laxatives as needed. KIDNEYS & ELECTROLYTES: Strict monitoring of intake, output and overall fluid balance. Avoid nephrotoxic medications to the extent possible. Medications to be dosed according to renal function. Monitor electrolytes and replace as needed ENDOCRINE: Maintain blood glucose between 100-180 at all times. Hypoglycemia protocol in place INFECTIOUS DISEASE: Trend temperature, WBC and procalcitonin level Follow cultures, deescalate antibiotics as soon as possible. Panculture if new onset fever ONCOLOGY/HEMATOLOGY/COAGULATION: Monitor for s/s of bleeding Monitor hemoglobin, coagulation studies as needed SKIN: Pressure ulcer prevention per facility protocol Specialty mattress ORTHO/REHAB: Continue PT/OT Prophylaxis: Continue GI and DVT prophylaxis Code Status: Full Resuscitation Disposition: TBD Other: Total patient care time exceeds 35 minutes excluding all procedures. ALEX NAVA Jul 16, 2024 15:41
--- NOTE | 2024-07-16 20:00 | NUR ---
assessment/teaching patient awake, alert, ox3, l ngt to lis draining brownish secretions, ppn infusing well to left upper arm picc line, teACH PATIENT PLAN OF CARE AND EXPECTED OUTCOME, PATIENT VERBALIZES UNDERSTANDING, ENCOURAGE DEEP BREATHING
[2024-07-17] VITALS (13 sets, daily range): BP systolic 101–134; BP diastolic 61–78; PULSE 62–85; RESP 16–22; TEMP 97.5–98.8; O2SAT 97–98
[2024-07-17 07:00] LABS: BASOPHILS # (AUTO) 0.04 K/uL (0.00-0.20); BASOPHILS % (AUTO) 0.4 % (0.0-5.0); EOSINOPHILS # (AUTO) 1.09 K/uL (0.00-0.70); EOSINOPHILS % (AUTO) 10.1 % (0.0-8.0); HEMATOCRIT 28.5 % (42-54); IMMATURE GRANULOCYTE ABSOLUTE 0.05 K/uL (0-1); LYMPHOCYTES # (AUTO) 1.2 K/uL (1.0-4.8); LYMPHOCYTES % (AUTO) 11.5 % (21.0-51.0); MEAN CORPUSCULAR HEMOGLOBIN 22.2 pg (27.0-33.0); MEAN CORPUSCULAR HGB CONC 30.2 g/dL (32.0-36.0); MEAN CORPUSCULAR VOLUME 73.6 fL (79-99); MONOCYTES # (AUTO) 1.2 K/uL (0.1-1.0); MONOCYTES % (AUTO) 10.8 % (3.0-13.0); NEUTROPHILS # (AUTO) 7.2 K/uL (1.8-7.7); NEUTROPHILS % (AUTO) 66.7 % (40.0-77.0); PLATELET COUNT (AUTO) 436 K/uL (130-400); RED BLOOD CELL COUNT(AUTO) 3.87 MIL/uL (4.50-6.20); RED CELL DISTRIBUTION WIDTH 17.2 % (11.0-15.5); WHITE BLOOD COUNT (AUTO) 10.7 K/uL (4.8-10.8)
[2024-07-17 07:16] LABS: ALBUMIN 1.9 g/dL (3.5-5.0); BILIRUBIN,TOTAL 0.2 mg/dL (0.2-1.0); CREATININE 0.8 mg/dL (0.5-1.3); POTASSIUM 3.9 mmol/L (3.5-5.1); TOTAL PROTEIN, SERUM 5.4 g/dL (6.0-8.3)
--- NOTE | 2024-07-17 16:44 | PN ---
[facility] PROGRESS NOTE Date Patient Seen: Jul 17, 2024 Time of Visit: 16:42 Supervising Physician: ALEN DUNBAR Primary Care Physician: DR ISAACS Outpatient Specialists: [ ] Inpatient Consults: DR RUEDA - GI PROBLEM LIST: Acute Gastric Outlet Obstruction secondary to Gastric Mass Right Sided Aspiration PNA likely due to above. Acute Dehydration Failure to thrive secondary to #1 Electrolyte derangements Microcytic Anemia secondaryto Iron deficiency HTN GERD PLAN : continue D5 NS at this time ,& TPN for nutrition as patient has been npo for p rolonged period of time Further evaluatedleukocytosis with UA /CXR / Procalcitonin and peripheral smear- Secondary to Right sided PNA , improving Continue zosyn and nebulizations, sputum cultures Oncology and General Surgery -following Cardiology has cleared as intermediate risk - pending surgery date Pain control Follow Echo results DVT prophylaxis / GI bleeding prophylaxis CBC CMP daily INTERVAL HISTORY: Patient was seen and examined today by me,with family at bedside. He continues with NG tube in place with gastric content output - transitoned over to TPN and D5 IV Fluids CT imaging . , does not reveal any evidence of metastatic disease. He was also evaluated by Dr. Feng. At this time we are awaiting further Recommendations , Since No met disease an attempted resection is being considered during his hospitalization, hoping for this coming week. Leukocytosis is trending down . now wnl Hemoglobin at 8.6,stable Electrolyte derangements improving Family updated on plan of care and all questions answered. REVIEW OF SYSTEMS: 12 point ROS reviewed with patient. Pertinent positives mentioned above. Otherwise negative. PHYSICAL EXAM: GENERAL: alert, weak, awake oriented x 3 HEENT: EOMI, Sclera non icteric, moist mucosa ng tube to right nare NECK: Supple, no JVD, trachea midline LUNGS: Clear breath sounds bilaterally. No wheezes HEART: Regular rate and rhythm. Normal S1 and S2, without murmurs ABD: Abdomen soft, nontender. Bowel sounds present EXT: No clubbing cyanosis or edema NEURO: Alert and oriented to person, follows commands Vital Signs (last 8hr) Date Time Temp Pulse Resp B/P (MAP) Pulse Ox O2 Delivery O2 Flow Rate FiO2 07/17/24 16:05 97.9 67 16 119/68 98 07/17/24 12:47 98.4 67 22 101/61 98 07/17/24 11:19 62 18 LABS: Hematology Labs: Test 07/17/24 06:47 Range/Units White Blood Count 10.7 4.8-10.8 K/uL Red Blood Count 3.87 L 4.50-6.20 MIL/uL Hemoglobin 8.6 L 14.0-18.0 g/dL Hematocrit 28.5 L 42-54 % Mean Corpuscular Volume 73.6 L 79-99 fL Mean Corpuscular Hemoglobin 22.2 L 27.0-33.0 pg Mean Corpuscular Hemoglobin Concent 30.2 L 32.0-36.0 g/dL Red Cell Distribution Width 17.2 H 11.0-15.5 % Platelet Count 436 H 130-400 K/uL Mean Platelet Volume 10.3 7.5-10.5 fL Immature Granulocyte % (Auto) 0.5 0-1 % Neutrophils (%) (Auto) 66.7 40.0-77.0 % Lymphocytes (%) (Auto) 11.5 L 21.0-51.0 % Monocytes (%) (Auto) 10.8 3.0-13.0 % Eosinophils (%) (Auto) 10.1 H 0.0-8.0 % Basophils (%) (Auto) 0.4 0.0-5.0 % Neutrophils # (Auto) 7.2 1.8-7.7 K/uL Lymphocytes # (Auto) 1.2 1.0-4.8 K/uL Monocytes # (Auto) 1.2 H 0.1-1.0 K/uL Eosinophils # (Auto) 1.09 H 0.00-0.70 K/uL Basophils # (Auto) 0.04 0.00-0.20 K/uL Absolute Immature Granulocyte (auto 0.05 0-1 K/uL Nucleated Red Blood Cells 0.0 0.0-0.19 % Chemistry Labs: Test 07/17/24 15:38 07/17/24 06:47 07/16/24 04:20 Range/Units Whole Blood Glucose 121 H 70-110 MG/DL Sodium Level 136 136-145 mmol/L Potassium Level 3.9 3.5-5.1 mmol/L Chloride Level 104 101-111 mmol/L Carbon Dioxide Level 27 21-32 mmol/L Blood Urea Nitrogen 17 7-18 mg/dL Creatinine 0.8 0.5-1.3 mg/dL Glomerular Filtration Rate Calc 89 >90 mL/min Random Glucose 112 H 70-105 mg/dL Total Calcium 8.2 L 8.5-10.1 mg/dL Total Bilirubin 0.2 0.2-1.0 mg/dL Aspartate Amino Transf (AST/SGOT) 15 10-37 U/L Alanine Aminotransferase (ALT/SGPT) 12 12-78 U/L Alkaline Phosphatase 56 50-136 U/L Total Protein 5.4 L 6.0-8.3 g/dL Albumin 1.9 L 3.5-5.0 g/dL Magnesium Level 2.00 1.80-2.40 mg/dL DIAGNOSTICS / RADIOLOGY RESULTS: [ ] PLAN NEURO: Minimize central acting medications as possible. Maintain fall precautions, adequate lighting during the day PULMONARY: Supplemental 02 as needed. Maintain aspiration precautions at all times CARDIOVASCULAR: Follow hemodynamics. Vital signs per facility protocol GI & NUTRITION: Continue with nutritional support. Continue stool softeners and laxatives as needed. KIDNEYS & ELECTROLYTES: Strict monitoring of intake, output and overall fluid balance. Avoid nephrotoxic medications to the extent possible. Medications to be dosed according to renal function. Monitor electrolytes and replace as needed ENDOCRINE: Maintain blood glucose between 100-180 at all times. Hypoglycemia protocol in place INFECTIOUS DISEASE: Trend temperature, WBC and procalcitonin level Follow cultures, deescalate antibiotics as soon as possible. Panculture if new onset fever ONCOLOGY/HEMATOLOGY/COAGULATION: Monitor for s/s of bleeding Monitor hemoglobin, coagulation studies as needed SKIN: Pressure ulcer prevention per facility protocol Specialty mattress ORTHO/REHAB: Continue PT/OT Prophylaxis: Continue GI and DVT prophylaxis Code Status: Full Resuscitation Disposition: TBD Other: Total patient care time exceeds 35 minutes excluding all procedures. ALEX NAVA Jul 17, 2024 16:44
[2024-07-17] MEDS: M.V.I. IV [ADULT] 10 ML, MULTITRACE-4 ADULT 10ML VIAL 3 ML in CLINIMIX-E 5%AA /D15%W 2... IV ONE (17:49)
[2024-07-18] VITALS (14 sets, daily range): BP systolic 98–116; BP diastolic 48–69; PULSE 64–84; RESP 16–22; TEMP 98.2–99.9; O2SAT 96–100
[2024-07-18 05:12] LABS: BASOPHILS # (AUTO) 0.03 K/uL (0.00-0.20); BASOPHILS % (AUTO) 0.4 % (0.0-5.0); EOSINOPHILS # (AUTO) 1.05 K/uL (0.00-0.70); EOSINOPHILS % (AUTO) 13.5 % (0.0-8.0); HEMATOCRIT 29.8 % (42-54); IMMATURE GRANULOCYTE ABSOLUTE 0.04 K/uL (0-1); LYMPHOCYTES # (AUTO) 1.3 K/uL (1.0-4.8); LYMPHOCYTES % (AUTO) 17.2 % (21.0-51.0); MEAN CORPUSCULAR HEMOGLOBIN 22.4 pg (27.0-33.0); MEAN CORPUSCULAR HGB CONC 30.5 g/dL (32.0-36.0); MEAN CORPUSCULAR VOLUME 73.2 fL (79-99); MONOCYTES # (AUTO) 1.1 K/uL (0.1-1.0); MONOCYTES % (AUTO) 13.5 % (3.0-13.0); NEUTROPHILS # (AUTO) 4.3 K/uL (1.8-7.7); NEUTROPHILS % (AUTO) 54.9 % (40.0-77.0); PLATELET COUNT (AUTO) 453 K/uL (130-400); RED BLOOD CELL COUNT(AUTO) 4.07 MIL/uL (4.50-6.20); RED CELL DISTRIBUTION WIDTH 17.1 % (11.0-15.5); WHITE BLOOD COUNT (AUTO) 7.8 K/uL (4.8-10.8)
[2024-07-18 05:29] LABS: BILIRUBIN,TOTAL 0.2 mg/dL (0.2-1.0); CREATININE 0.8 mg/dL (0.5-1.3); MAGNESIUM 2.1 mg/dL (1.80-2.40); POTASSIUM 3.9 mmol/L (3.5-5.1); TOTAL PROTEIN, SERUM 5.8 g/dL (6.0-8.3)
--- NOTE | 2024-07-18 06:32 | EKG ---
[facility] Test Date: 2024-07-15 Test Time: 19:30:47 Pat Name: ABELINO ENGLAND Department: [facility] Room: 404 1 Gender: M [employer] Manager: rosendo : 1945 Requested By: GRACY JAUREGUI Order Number: [id number] Reading MD: Braulio Fung Measurements Intervals [place] Rate: 72 P: 13 KS: 134 QRS: 48 QRSD: 78 T: 36 QT: 370 QTc: 405 Interpretive Statements Normal sinus rhythm Compared to ECG 07/15/2024 19:29:12 No significant changes Electronically Signed On 07-19-2024 23:15:12 CDT by Braulio Fung Please click the below link to view image of tracing.
[2024-07-18] MEDS: FAT EMULSIONS 20% 250ML 250 ML IV SCH (09:29)
--- NOTE | 2024-07-18 09:41 | HMCIMG ---
Exam Type: CHEST 1VW Clinical Information: congestin Comparison: July 15, 2024 Findings: Again, there is a left parahilar focus of density which could represent an infiltrate versus a neoplasm. Pulmonary pattern is as before. No worrisome interval changes have taken place. Impression: Stable exam.
--- NOTE | 2024-07-18 09:49 | PN ---
GASTROENTEROLOGY PROGRESS NOTE Date of Visit: Jul 18, 2024 Time of Visit: 09:49 Events / Notes: No acute events overnight. Patient stable in no acute distress. He is on parenteral nutrition. 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 CT without any evidence of metastasis. Review of Systems: CONSTITUTIONAL: No malaise or change in sensation of wellbeing. ENMT: No rhinorrhea, otorrhea, sinus pain, ear ache. CARDIOVASCULAR: No angina, palpitations, orthopnea or paroxysmal dyspnea. RESPIRATORY: No SOB. GASTROINTESTINAL: No abdominal pain, nausea, vomiting, diarrhea, hematemesis, melena or change in the patient's habitual bowel movements consistency/number. GENITOURINARY: No dysuria, hematuria or change in bladder continence. MUSCULOSKELETAL: No new muscle pain or decrease in muscular strength. No new joint swelling, redness or tenderness. SKIN: No new rash. Physical Exam: GEN: Awake, alert, oriented in person, time and place, and in no acute distress. HEENT: No sinus tenderness. Tympanic membranes were not examined. No rhinorrhea. Oral pharyngeal mucosa is pink, moist and within normal limits. Neck is supple with no cervical lymphadenopathy, thyromegaly or JVD. CHEST: Inspection, palpation and percussion of the chest were unremarkable. Lung auscultation revealed normal breath sounds bilaterally. CARDIAC: PMI is within normal limits. Heart sounds are regular. Normal S1, S2. No gallop or murmur. ABD: Soft, non-tender and not distended. No peritoneal signs on palpation. No organomegaly. Normal bowel sounds. EXT: No cyanosis or clubbing. No edema. SKIN: Intact. No rashes. JOINTS: No evidence of synovitis or acute arthritis. NEURO: Alert and oriented to name, place and person. Cranial nerve examination is unremarkable. No focal motor deficits. Normal speech. Gait is normal. Strength is normal. Vital Signs (last 8hr) Date Time Temp Pulse Resp B/P (MAP) Pulse Ox O2 Delivery O2 Flow Rate FiO2 07/18/24 08:30 68 18 N/A Room Air 21 07/18/24 08:05 98.4 70 18 102/63 96 07/18/24 06:39 64 18 07/18/24 03:58 98.2 69 16 115/63 97 Room Air Laboratory: [ ] Laboratory: Test 07/18/24 05:02 07/18/24 04:47 Range/Units Whole Blood Glucose 133 H 70-110 MG/DL White Blood Count 7.8 # 4.8-10.8 K/uL Red Blood Count 4.07 L 4.50-6.20 MIL/uL Hemoglobin 9.1 L 14.0-18.0 g/dL Hematocrit 29.8 L 42-54 % Mean Corpuscular Volume 73.2 L 79-99 fL Mean Corpuscular Hemoglobin 22.4 L 27.0-33.0 pg Mean Corpuscular Hemoglobin Concent 30.5 L 32.0-36.0 g/dL Red Cell Distribution Width 17.1 H 11.0-15.5 % Platelet Count 453 H 130-400 K/uL Mean Platelet Volume 9.7 7.5-10.5 fL Immature Granulocyte % (Auto) 0.5 0-1 % Neutrophils (%) (Auto) 54.9 40.0-77.0 % Lymphocytes (%) (Auto) 17.2 L 21.0-51.0 % Monocytes (%) (Auto) 13.5 H 3.0-13.0 % Eosinophils (%) (Auto) 13.5 H 0.0-8.0 % Basophils (%) (Auto) 0.4 0.0-5.0 % Neutrophils # (Auto) 4.3 1.8-7.7 K/uL Lymphocytes # (Auto) 1.3 1.0-4.8 K/uL Monocytes # (Auto) 1.1 H 0.1-1.0 K/uL Eosinophils # (Auto) 1.05 H 0.00-0.70 K/uL Basophils # (Auto) 0.03 0.00-0.20 K/uL Absolute Immature Granulocyte (auto 0.04 0-1 K/uL Nucleated Red Blood Cells 0.0 0.0-0.19 % Sodium Level 135 L 136-145 mmol/L Potassium Level 3.9 3.5-5.1 mmol/L Chloride Level 102 101-111 mmol/L Carbon Dioxide Level 30 21-32 mmol/L Blood Urea Nitrogen 17 7-18 mg/dL Creatinine 0.8 0.5-1.3 mg/dL Glomerular Filtration Rate Calc 89 >90 mL/min Random Glucose 124 H 70-105 mg/dL Total Calcium 8.4 L 8.5-10.1 mg/dL Magnesium Level 2.10 1.80-2.40 mg/dL Total Bilirubin 0.2 0.2-1.0 mg/dL Aspartate Amino Transf (AST/SGOT) 14 10-37 U/L Alanine Aminotransferase (ALT/SGPT) 11 L 12-78 U/L Alkaline Phosphatase 55 50-136 U/L Total Protein 5.8 L 6.0-8.3 g/dL Albumin 2.0 L 3.5-5.0 g/dL Current Medications Medications (Trade) Dose Ordered Sig/Nory Route PRN Reason Start Time Stop Time Status Last Admin Dose Admin Artificial Tears (Artificial Tears) 1 DROP OP PRN DRY EYES Q2H PRN OP DRY EYES 07/13/24 11:30 08/12/24 11:29 Dextrose (D50w) 50 ml AD PRN IV HYPOGLYCEMIA PROTOCOL 07/13/24 11:30 08/12/24 11:29 Dextrose/Sodium Chloride 1,000 ml @ 75 mls/hr [id number] IV 07/13/24 11:30 08/12/24 11:29 07/14/24 14:36 75 MLS/HR Diphenhydramine HCl (BENAdryl INJ) 25 mg Q6H PRN IV SEVERE ITCHING/RASH 07/13/24 11:30 08/12/24 11:29 Enoxaparin Sodium (Lovenox) 30 mg DAILY SQ 07/15/24 09:00 08/14/24 08:59 07/18/24 09:29 30 MG Famotidine (Pepcid 20mg Vial) 20 mg BID IV 07/13/24 21:00 08/12/24 20:59 07/18/24 09:29 20 MG Fat Emulsion Intravenous 250 ml @ 42 mls/hr QMOWEFR@1000 IV 07/18/24 10:00 08/17/24 09:59 07/18/24 09:29 42 MLS/HR Glucagon (Glucagon 1mg Kit) 1 mg AD PRN IM HYPOGLYCEMIA PROTOCOL 07/13/24 11:30 08/12/24 11:29 Hydralazine HCl ([id number] TAB) 25 mg Q6H PRN PO SBP>160 or DBP>90 07/13/24 11:30 08/12/24 11:29 Ipratropium [place] (AtrovENT UD) 0.5 mg Q6H IH 07/14/24 17:00 08/13/24 16:59 07/18/24 06:39 0.5 MG Ondansetron HCl (zoFRAN 4MG INJ) 4 mg Q6H PRN IV NAUSEA/VOMITING 07/13/24 11:30 08/12/24 11:29 Pharmacy Profile Note (Pharmacy Communication) 1 each ONCE MISC 07/14/24 17:00 07/15/24 09:21 DC Piperacillin Sod/ Tazobactam Sod (Zosyn 3.375gm+NS 50ml) 3.375 gm Q8H IV 07/14/24 17:00 07/24/24 16:59 07/18/24 09:29 3.375 GM Potassium Chloride 100 ml @ 50 mls/hr AD PRN IV POTASSIUM PROTOCOL 07/15/24 06:00 08/14/24 05:59 07/16/24 13:08 50 MLS/HR Diagnostics / Radiology: [COPY/PASTE HERE IF NO REPORTS PLEASE DELETE SECTION] Assessment: Gastric mass with gastric outlet obstruction Plan: Surgery planned for , possible resection vs j tube placement. Continue TPN ARMAAN MIRZA [employer] WORKER Jul 18, 2024 09:49
[2024-07-18] MEDS: M.V.I. IV [ADULT] 10 ML, MULTITRACE-4 ADULT 10ML VIAL 3 ML in CLINIMIX-E 5%AA /D15%W 2... IV ONE (13:11)
--- NOTE | 2024-07-18 13:50 | PN ---
This is a case of an 78-year-old man that had persistent symptoms of gastroesophageal reflux disease with a past medical history of hypertension that was evaluated by Gastroenterology on July 01, 2024. Given his persistent symptoms the patient was set up to do an EGD and colonoscopy. An EGD was 1st done this morning and he was noted to have a gastric mass consistent with a gastric outlet obstruction. At this point our services were contacted for admission . Last meal intake was about 2 weeks ago with a solid ., he has been taking ensures and clear liquid since then without much appetite . BMs have been normal, last one this AM No emesis reported, + nausea . He jordan have a history of remote tobacco use , but quit about 10 yrs ago . He did partake in ETOH use about 4-5 drinks a day but quit 04/2024 Son is at bedside and we discussed current findings in detail and plan of care. Patient was evaluated by surgery. PHYSICAL EXAM: GENERAL: alert, weak, awake oriented x 3 HEENT:ENT in place. EOMI, Sclera non icteric, moist mucosa NECK: Supple, no JVD, trachea midline LUNGS: Clear breath sounds bilaterally. No wheezes HEART: Regular rate and rhythm. Normal S1 and S2, without murmurs ABD: Abdomen soft, nontender. Bowel sounds present EXT: No clubbing cyanosis or edema NEURO: Alert and oriented to person, follows commands Assessment Acute Gastric Outlet Obstruction secondary to Gastric Mass. EGD was done with biopsy is sent to his local pathology. Acute Dehydration Failure to thrive secondary to #1 Electrolyte derangements Microcytic Anemia Leukocytosis , unclear etiology HTN GERD PLAN : 1. Will follow-up with the result of pathology.We have to wait until final report. If it is adenocarcinoma then this patient may be could have surgery done. But if it is different pathology such as GI stromal tumor, lymphoma and then the treatment will be different. 2. CT scan of the abdomen showing 3.4 x 4.6 cm gastric mass to the antral position. This patient was evaluated by surgeon. This patient may be will need surgery regardless of the pathology report. 3. I have long discussion with the patient and family member regarding the plan of care. I answer all question and concern and I spent more than 35 minutes. My nurse was translating to the patient and family member regarding our plan of care. 4. This patient to receive iron deficiency anemia. The patient could benefit from IV iron daily for 3 days while the patient in the hospital. 5. No need for blood product transfusion at this time 6. Continue TPN. Vitals/Labs Vital Signs Date Time Temp Pulse Resp B/P (MAP) Pulse Ox O2 Delivery O2 Flow Rate FiO2 07/18/24 11:58 99.9 75 21 98/62 93 07/18/24 08:30 N/A Room Air 21 07/17/24 19:10 0 Laboratory Tests 07/18/24 04:47 Medications Current Medications Sodium Chloride 1,000 ml @ As Directed STK-MED ONCE IV Last administered on 07/13/24at 06:52; Start 07/13/24 at 06:08; Stop 07/13/24 at 06:08; Status DC Propofol 200 mg STK-MED ONCE IV; Start 07/13/24 at 10:35; Stop 07/13/24 at 10:35; Status DC Diphenhydramine HCl 25 mg Q6H PRN IV; Start 07/13/24 at 11:30; Stop 08/12/24 at 11:29 Ondansetron HCl 4 mg Q6H PRN IV; Start 07/13/24 at 11:30; Stop 08/12/24 at 11:29 Famotidine 20 mg BID IV Last administered on 07/18/24at 09:29; Start 07/13/24 at 21:00; Stop 08/12/24 at 20:59 Hydralazine HCl 25 mg Q6H PRN PO; Start 07/13/24 at 11:30; Stop 08/12/24 at 11:29 Artificial Tears 1 DROP OP PRN DRY EYES Q2H PRN OP; Start 07/13/24 at 11:30; Stop 08/12/24 at 11:29 Dextrose 50 ml AD PRN IV; Start 07/13/24 at 11:30; Stop 08/12/24 at 11:29 Glucagon 1 mg AD PRN IM; Start 07/13/24 at 11:30; Stop 08/12/24 at 11:29 Dextrose/Sodium Chloride 1,000 ml @ 75 mls/hr [id number] IV Last administered on 07/14/24at 14:36; Start 07/13/24 at 11:30; Stop 08/12/24 at 11:29 Enoxaparin Sodium 30 mg DAILY SQ Last administered on 07/18/24at 09:29; Start 07/15/24 at 09:00; Stop 08/14/24 at 08:59 Iohexol 35,000 mg STK-MED ONCE IV; Start 07/14/24 at 13:15; Stop 07/14/24 at 13:16; Status DC Piperacillin Sod/ Tazobactam Sod 3.375 gm Q8H IV Last administered on 07/18/24at 09:29; Start 07/14/24 at 17:00; Stop 07/24/24 at 16:59 Pharmacy Profile Note 1 each ONCE MISC; Start 07/14/24 at 17:00; Stop 07/15/24 at 09:21; Status DC Ipratropium [place] 0.5 mg Q6H IH Last administered on 07/18/24at 11:08; Start 07/14/24 at 17:00; Stop 08/13/24 at 16:59 Amino Acids/ Dextrose 2,000 ml @ 83.333 mls/ hr ONCE ONCE IV; Start 07/15/24 at 08:00; Stop 07/15/24 at 09:21; Status DC Potassium Chloride 100 ml @ 50 mls/hr AD PRN IV Last administered on 07/16/24at 13:08; Start 07/15/24 at 06:00; Stop 08/14/24 at 05:59 Amino Acids/ Electrolytes/ Dextrose 2,000 ml @ 83 mls/hr ONCE ONCE IV Last administered on 07/15/24at 11:52; Start 07/15/24 at 09:30; Stop 07/16/24 at 09:35; Status DC Propofol 200 mg STK-MED ONCE IV; Start 07/16/24 at 07:18; Stop 07/16/24 at 07:24; Status DC Lidocaine HCl 100 mg STK-MED ONCE .ROUTE; Start 07/16/24 at 07:18; Stop 07/16/24 at 07:24; Status DC Phenylephrine HCl 10 mg STK-MED ONCE IV; Start 07/16/24 at 07:26; Stop 07/16/24 at 07:27; Status DC Amino Acids/ Electrolytes/ Dextrose 2,000 ml @ 83 mls/hr ONCE ONCE IV Last administered on 07/16/24at 11:46; Start 07/16/24 at 12:00; Stop 07/17/24 at 09:41; Status DC Fat Emulsion Intravenous 250 ml @ 42 mls/hr QMOWEFR@1000 IV Last administered on 07/18/24at 09:29; Start 07/18/24 at 10:00; Stop 08/17/24 at 09:59 Multivitamins/ Minerals 10 ml/ Chromium/Copper/ Manganese/Zinc 3 ml/Amino Acids/ Electrolytes/ Dextrose 2,000 ml @ 75 mls/hr ONCE ONCE IV Last administered on 07/17/24at 17:49; Start 07/17/24 at 10:00; Stop 07/18/24 at 12:39; Status DC Multivitamins/ Minerals 10 ml/ Chromium/Copper/ Manganese/Zinc 3 ml/Amino Acids/ Electrolytes/ Dextrose 2,000 ml @ 75 mls/hr ONCE ONCE IV Last administered on 07/18/24at 13:11; Start 07/18/24 at 13:30; Stop 07/19/24 at 16:09 ASTRID FRAZIER MD Jul 18, 2024 13:50
--- NOTE | 2024-07-18 17:32 | NUR ---
Nutritional f/u Note: Chart, meds, and labs Reviewed. Pt on CLinimix 5/15 % via central line at a rate of 75ml/hr, Include 10ml adult MVI and 3ml trace elements. TPN to provide 1800ml total volume, 90gm pro, 270gm dextrose, 1278kcal/day.GIR 3.5 Abnormal nutrition related labs: na 135, ca 8.4, alb 2.0, Mg WNL, k+WNL, Wt Status: stable 53kg Recommend: -Continue TPN -Lipid emulsion x 3 weekly M, W, F to prevent essential fatty acid deficiency -Check Lipid Panel weekly on Mondays -MD to Adjust TPN based on daily assessments -Transition to EN when feasible if pt remains NPO and partial GI restored consider J-tube feeding -RD to provide further recommendations based on clinical progress. -Monitor feeding tolerance, %, wt, and labs -If No BM >3days consider bowel stimulant. - Please notify RD if additional nutrition concerns arise. Addendum: 07/18/24 at [address] Amended: Links added.
[2024-07-18 17:47] LABS: CHOLESTEROL 107 mg/dL (<200); HDL CHOLESTEROL 35 mg/dL (29-71); LDL DIRECT 65 mg/dL (0-99); TRIGLYCERIDES 87 mg/dL (30-200)
[2024-07-19] VITALS (12 sets, daily range): BP systolic 94–134; BP diastolic 56–92; PULSE 61–80; RESP 16–20; TEMP 97.6–98.6; O2SAT 97–99
--- NOTE | 2024-07-19 00:36 | PN ---
[facility] PROGRESS NOTE Date Patient Seen: Jul 18, 2024 Supervising Physician: MANJINDER LOWRY MD Primary Care Physician: DR ISAACS Outpatient Specialists: [ ] Inpatient Consults: DR RUEDA - GI PROBLEM LIST: Acute Gastric Outlet Obstruction secondary to Gastric Mass Right Sided Aspiration PNA likely due to above. Acute Dehydration Failure to thrive secondary to #1 Electrolyte derangements Microcytic Anemia secondaryto Iron deficiency HTN GERD PLAN : continue D5 NS at this time ,& TPN for nutrition as patient has been npo for prolonged period of time Further evaluated leukocytosis with UA /CXR / Procalcitonin and peripheral smear- Secondary to Right sided PNA , improving Continue zosyn and nebulizations, sputum cultures Oncology and General Surgery -following Cardiology has cleared as intermediate risk - pending surgery date Pain control Follow Echo results DVT prophylaxis / GI bleeding prophylaxis CBC CMP daily INTERVAL HISTORY: Patient was seen and examined today by me,with family at bedside. He continues with NG tube in place with gastric content output . Currently on TPN and D5 IV Fluids CT imaging . , does not reveal any evidence of metastatic disease. Dr. Feng has evaluated patient and Since No met disease an attempted resection is being considered for possibly . Hemoglobin at 8.6,stable Electrolyte derangements improving Family updated on plan of care and all questions answered. REVIEW OF SYSTEMS: 12 point ROS reviewed with patient. Pertinent positives mentioned above. Otherwise negative. PHYSICAL EXAM: GENERAL: alert, weak, awake oriented x 3 HEENT: EOMI, Sclera non icteric, moist mucosa ng tube to right nare NECK: Supple, no JVD, trachea midline LUNGS: Clear breath sounds bilaterally. No wheezes HEART: Regular rate and rhythm. Normal S1 and S2, without murmurs ABD: Abdomen soft, nontender. Bowel sounds present EXT: No clubbing cyanosis or edema NEURO: Alert and oriented to person, follows commands Vital Signs (last 8hr) Date Time Temp Pulse Resp B/P (MAP) Pulse Ox O2 Delivery O2 Flow Rate FiO2 07/18/24 23:34 98.8 79 16 100/48 100 Room Air 07/18/24 23:32 79 18 07/18/24 19:35 98.6 84 17 109/64 100 Room Air 07/18/24 19:05 100 Room Air* 0 21 07/18/24 18:44 84 18 07/18/24 16:35 99.0 64 22 104/63 96 LABS: Hematology Labs: Test 3/10/25 04:47 Range/Units White Blood Count 7.8 # 4.8-10.8 K/uL Red Blood Count 4.07 L 4.50-6.20 MIL/uL Hemoglobin 9.1 L 14.0-18.0 g/dL Hematocrit 29.8 L 42-54 % Mean Corpuscular Volume 73.2 L 79-99 fL Mean Corpuscular Hemoglobin 22.4 L 27.0-33.0 pg Mean Corpuscular Hemoglobin Concent 30.5 L 32.0-36.0 g/dL Red Cell Distribution Width 17.1 H 11.0-15.5 % Platelet Count 453 H 130-400 K/uL Mean Platelet Volume 9.7 7.5-10.5 fL Immature Granulocyte % (Auto) 0.5 0-1 % Neutrophils (%) (Auto) 54.9 40.0-77.0 % Lymphocytes (%) (Auto) 17.2 L 21.0-51.0 % Monocytes (%) (Auto) 13.5 H 3.0-13.0 % Eosinophils (%) (Auto) 13.5 H 0.0-8.0 % Basophils (%) (Auto) 0.4 0.0-5.0 % Neutrophils # (Auto) 4.3 1.8-7.7 K/uL Lymphocytes # (Auto) 1.3 1.0-4.8 K/uL Monocytes # (Auto) 1.1 H 0.1-1.0 K/uL Eosinophils # (Auto) 1.05 H 0.00-0.70 K/uL Basophils # (Auto) 0.03 0.00-0.20 K/uL Absolute Immature Granulocyte (auto 0.04 0-1 K/uL Nucleated Red Blood Cells 0.0 0.0-0.19 % Chemistry Labs: Test 07/18/24 19:35 07/18/24 04:47 Range/Units Whole Blood Glucose 117 H 70-110 MG/DL Sodium Level 135 L 136-145 mmol/L Potassium Level 3.9 3.5-5.1 mmol/L Chloride Level 102 101-111 mmol/L Carbon Dioxide Level 30 21-32 mmol/L Blood Urea Nitrogen 17 7-18 mg/dL Creatinine 0.8 0.5-1.3 mg/dL Glomerular Filtration Rate Calc 89 >90 mL/min Random Glucose 124 H 70-105 mg/dL Total Calcium 8.4 L 8.5-10.1 mg/dL Magnesium Level 2.10 1.80-2.40 mg/dL Total Bilirubin 0.2 0.2-1.0 mg/dL Aspartate Amino Transf (AST/SGOT) 14 10-37 U/L Alanine Aminotransferase (ALT/SGPT) 11 L 12-78 U/L Alkaline Phosphatase 55 50-136 U/L Total Protein 5.8 L 6.0-8.3 g/dL Albumin 2.0 L 3.5-5.0 g/dL Triglycerides Level 87 30-200 mg/dL Cholesterol Level 107 <200 mg/dL LDL Cholesterol 65 0-99 mg/dL HDL Cholesterol 35 29-71 mg/dL DIAGNOSTICS / RADIOLOGY RESULTS: [ ] PLAN NEURO: Minimize central acting medications as possible. Maintain fall precautions, adequate lighting during the day PULMONARY: Supplemental 02 as needed. Maintain aspiration precautions at all times CARDIOVASCULAR: Follow hemodynamics. Vital signs per facility protocol GI & NUTRITION: Continue with nutritional support. Continue stool softeners and laxatives as needed. KIDNEYS & ELECTROLYTES: Strict monitoring of intake, output and overall fluid balance. Avoid nephrotoxic medications to the extent possible. Medications to be dosed according to renal function. Monitor electrolytes and replace as needed ENDOCRINE: Maintain blood glucose between 100-180 at all times. Hypoglycemia protocol in place INFECTIOUS DISEASE: Trend temperature, WBC and procalcitonin level Follow cultures, deescalate antibiotics as soon as possible. Panculture if new onset fever ONCOLOGY/HEMATOLOGY/COAGULATION: Monitor for s/s of bleeding Monitor hemoglobin, coagulation studies as needed SKIN: Pressure ulcer prevention per facility protocol Specialty mattress ORTHO/REHAB: Continue PT/OT Prophylaxis: Continue GI and DVT prophylaxis Code Status: Full Resuscitation Disposition: TBD Other: Total patient care time exceeds 35 minutes excluding all procedures. ALEX NAVA Jul 19, 2024 00:36
--- NOTE | 2024-07-19 08:10 | PN ---
GASTROENTEROLOGY PROGRESS NOTE Date of Visit: Jul 19, 2024 Time of Visit: 08:10 Events / Notes: No acute events overnight. Patient stable in no acute distress. He is on parenteral nutrition. 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 CT without any evidence of metastasis. Review of Systems: CONSTITUTIONAL: No malaise or change in sensation of wellbeing. ENMT: No rhinorrhea, otorrhea, sinus pain, ear ache. CARDIOVASCULAR: No angina, palpitations, orthopnea or paroxysmal dyspnea. RESPIRATORY: No SOB. GASTROINTESTINAL: No abdominal pain, nausea, vomiting, diarrhea, hematemesis, melena or change in the patient's habitual bowel movements consistency/number. GENITOURINARY: No dysuria, hematuria or change in bladder continence. MUSCULOSKELETAL: No new muscle pain or decrease in muscular strength. No new joint swelling, redness or tenderness. SKIN: No new rash. Physical Exam: GEN: Awake, alert, oriented in person, time and place, and in no acute distress. HEENT: No sinus tenderness. Tympanic membranes were not examined. No rhinorrhea. Oral pharyngeal mucosa is pink, moist and within normal limits. Neck is supple with no cervical lymphadenopathy, thyromegaly or JVD. CHEST: Inspection, palpation and percussion of the chest were unremarkable. Lung auscultation revealed normal breath sounds bilaterally. CARDIAC: PMI is within normal limits. Heart sounds are regular. Normal S1, S2. No gallop or murmur. ABD: Soft, non-tender and not distended. No peritoneal signs on palpation. No organomegaly. Normal bowel sounds. EXT: No cyanosis or clubbing. No edema. SKIN: Intact. No rashes. JOINTS: No evidence of synovitis or acute arthritis. NEURO: Alert and oriented to name, place and person. Cranial nerve examination is unremarkable. No focal motor deficits. Normal speech. Gait is normal. Strength is normal. Vital Signs (last 8hr) Date Time Temp Pulse Resp B/P (MAP) Pulse Ox O2 Delivery O2 Flow Rate FiO2 07/19/24 06:51 68 18 N/A Room Air 21 07/19/24 06:50 68 18 07/19/24 03:56 98.2 68 16 111/61 98 Room Air Laboratory: [ ] Laboratory: Test 07/19/24 05:10 07/18/24 04:47 Range/Units Whole Blood Glucose 131 H 70-110 MG/DL White Blood Count 7.8 # 4.8-10.8 K/uL Red Blood Count 4.07 L 4.50-6.20 MIL/uL Hemoglobin 9.1 L 14.0-18.0 g/dL Hematocrit 29.8 L 42-54 % Mean Corpuscular Volume 73.2 L 79-99 fL Mean Corpuscular Hemoglobin 22.4 L 27.0-33.0 pg Mean Corpuscular Hemoglobin Concent 30.5 L 32.0-36.0 g/dL Red Cell Distribution Width 17.1 H 11.0-15.5 % Platelet Count 453 H 130-400 K/uL Mean Platelet Volume 9.7 7.5-10.5 fL Immature Granulocyte % (Auto) 0.5 0-1 % Neutrophils (%) (Auto) 54.9 40.0-77.0 % Lymphocytes (%) (Auto) 17.2 L 21.0-51.0 % Monocytes (%) (Auto) 13.5 H 3.0-13.0 % Eosinophils (%) (Auto) 13.5 H 0.0-8.0 % Basophils (%) (Auto) 0.4 0.0-5.0 % Neutrophils # (Auto) 4.3 1.8-7.7 K/uL Lymphocytes # (Auto) 1.3 1.0-4.8 K/uL Monocytes # (Auto) 1.1 H 0.1-1.0 K/uL Eosinophils # (Auto) 1.05 H 0.00-0.70 K/uL Basophils # (Auto) 0.03 0.00-0.20 K/uL Absolute Immature Granulocyte (auto 0.04 0-1 K/uL Nucleated Red Blood Cells 0.0 0.0-0.19 % Sodium Level 135 L 136-145 mmol/L Potassium Level 3.9 3.5-5.1 mmol/L Chloride Level 102 101-111 mmol/L Carbon Dioxide Level 30 21-32 mmol/L Blood Urea Nitrogen 17 7-18 mg/dL Creatinine 0.8 0.5-1.3 mg/dL Glomerular Filtration Rate Calc 89 >90 mL/min Random Glucose 124 H 70-105 mg/dL Total Calcium 8.4 L 8.5-10.1 mg/dL Magnesium Level 2.10 1.80-2.40 mg/dL Total Bilirubin 0.2 0.2-1.0 mg/dL Aspartate Amino Transf (AST/SGOT) 14 10-37 U/L Alanine Aminotransferase (ALT/SGPT) 11 L 12-78 U/L Alkaline Phosphatase 55 50-136 U/L Total Protein 5.8 L 6.0-8.3 g/dL Albumin 2.0 L 3.5-5.0 g/dL Triglycerides Level 87 30-200 mg/dL Cholesterol Level 107 <200 mg/dL LDL Cholesterol 65 0-99 mg/dL HDL Cholesterol 35 29-71 mg/dL Current Medications Medications (Trade) Dose Ordered Sig/Nory Route PRN Reason Start Time Stop Time Status Last Admin Dose Admin Artificial Tears (Artificial Tears) 1 DROP OP PRN DRY EYES Q2H PRN OP DRY EYES 07/13/24 11:30 08/12/24 11:29 Dextrose (D50w) 50 ml AD PRN IV HYPOGLYCEMIA PROTOCOL 07/13/24 11:30 08/12/24 11:29 Dextrose/Sodium Chloride 1,000 ml @ 75 mls/hr [id number] IV 07/13/24 11:30 08/12/24 11:29 07/14/24 14:36 75 MLS/HR Diphenhydramine HCl (BENAdryl INJ) 25 mg Q6H PRN IV SEVERE ITCHING/RASH 07/13/24 11:30 08/12/24 11:29 Enoxaparin Sodium (Lovenox) 30 mg DAILY SQ 07/15/24 09:00 08/14/24 08:59 07/18/24 09:29 30 MG Famotidine (Pepcid 20mg Vial) 20 mg BID IV 07/13/24 21:00 08/12/24 20:59 07/18/24 19:19 20 MG Fat Emulsion Intravenous 250 ml @ 42 mls/hr QMOWEFR@1000 IV 07/18/24 10:00 08/17/24 09:59 07/18/24 09:29 42 MLS/HR Glucagon (Glucagon 1mg Kit) 1 mg AD PRN IM HYPOGLYCEMIA PROTOCOL 07/13/24 11:30 08/12/24 11:29 Hydralazine HCl ([id number] TAB) 25 mg Q6H PRN PO SBP>160 or DBP>90 07/13/24 11:30 08/12/24 11:29 Ipratropium [place] (AtrovENT UD) 0.5 mg Q6H IH 07/14/24 17:00 08/13/24 16:59 07/19/24 06:50 0.5 MG Ondansetron HCl (zoFRAN 4MG INJ) 4 mg Q6H PRN IV NAUSEA/VOMITING 07/13/24 11:30 08/12/24 11:29 Pharmacy Profile Note (Pharmacy Communication) 1 each ONCE MISC 07/14/24 17:00 07/15/24 09:21 DC Piperacillin Sod/ Tazobactam Sod (Zosyn 3.375gm+NS 50ml) 3.375 gm Q8H IV 07/14/24 17:00 07/24/24 16:59 07/19/24 00:37 3.375 GM Potassium Chloride 100 ml @ 50 mls/hr AD PRN IV POTASSIUM PROTOCOL 07/15/24 06:00 08/14/24 05:59 07/16/24 13:08 50 MLS/HR Diagnostics / Radiology: [COPY/PASTE HERE IF NO REPORTS PLEASE DELETE SECTION] Assessment: Gastric mass with gastric outlet obstruction Plan: Surgery planned for , possible resection vs j tube placement. Continue TPN ARMAAN MIRZA [employer] Jul 19, 2024 08:10
--- NOTE | 2024-07-19 15:02 | PN ---
[facility] PROGRESS NOTE Date Patient Seen: Jul 19, 2024 Time of Visit: 15:01 Supervising Physician: Dr. Phong Ricci Primary Care Physician: DR ISAACS Outpatient Specialists: [ ] Inpatient Consults: DR RUEDA - GI PROBLEM LIST: Acute Gastric Outlet Obstruction secondary to Gastric Mass Right Sided Aspiration PNA likely due to above. Acute Dehydration Failure to thrive secondary to #1 Electrolyte derangements Microcytic Anemia secondaryto Iron deficiency HTN GERD PLAN : continue D5 NS at this time ,& TPN for nutrition as patient has been npo for prolonged period of time Further evaluated leukocytosis with UA /CXR / Procalcitonin and peripheral smear- Secondary to Right sided PNA , improving Continue zosyn and nebulizations, sputum cultures Oncology and General Surgery -following Cardiology has cleared as intermediate risk - pending surgery date Pain control Follow Echo results DVT prophylaxis / GI bleeding prophylaxis CBC CMP daily INTERVAL HISTORY: Patient evaluated at bedside with son present, son was available for translation. Patient was currently with nasogastric tube, connected to wall suction. He continues on TPN at this time, per chart review patient was scheduled for a possible resection planned for or Thursday with GI. Patient was aware of this. He continues on Zosyn at this time, white count today is 7.8, patient continues on approximately 2-3 L nasal cannula. Patient denies any discomfort at this time, states he is eager for the surgery to be performed. Her changes to medical management at this time, continue to monitor nasogastric tube output. Patient to remain NPO until after surgery. Family updated on plan of care and all questions answered. REVIEW OF SYSTEMS: 12 point ROS reviewed with patient. Pertinent positives mentioned above. Otherwise negative. PHYSICAL EXAM: GENERAL: alert, weak, awake oriented x 3 HEENT: EOMI, Sclera non icteric, moist mucosa ng tube to right nare NECK: Supple, no JVD, trachea midline LUNGS: Clear breath sounds bilaterally. No wheezes HEART: Regular rate and rhythm. Normal S1 and S2, without murmurs ABD: Abdomen soft, nontender. Bowel sounds present EXT: No clubbing cyanosis or edema NEURO: Alert and oriented to person, follows commands Vital Signs (last 8hr) Date Time Temp Pulse Resp B/P (MAP) Pulse Ox O2 Delivery O2 Flow Rate FiO2 07/19/24 11:45 98.2 72 20 134/92 99 Room Air 07/19/24 08:34 98.1 61 20 118/63 99 Room Air 07/19/24 07:40 99 Room Air* 0 21 LABS: Hematology Labs: Test 07/18/24 04:47 Range/Units White Blood Count 7.8 # 4.8-10.8 K/uL Red Blood Count 4.07 L 4.50-6.20 MIL/uL Hemoglobin 9.1 L 14.0-18.0 g/dL Hematocrit 29.8 L 42-54 % Mean Corpuscular Volume 73.2 L 79-99 fL Mean Corpuscular Hemoglobin 22.4 L 27.0-33.0 pg Mean Corpuscular Hemoglobin Concent 30.5 L 32.0-36.0 g/dL Red Cell Distribution Width 17.1 H 11.0-15.5 % Platelet Count 453 H 130-400 K/uL Mean Platelet Volume 9.7 7.5-10.5 fL Immature Granulocyte % (Auto) 0.5 0-1 % Neutrophils (%) (Auto) 54.9 40.0-77.0 % Lymphocytes (%) (Auto) 17.2 L 21.0-51.0 % Monocytes (%) (Auto) 13.5 H 3.0-13.0 % Eosinophils (%) (Auto) 13.5 H 0.0-8.0 % Basophils (%) (Auto) 0.4 0.0-5.0 % Neutrophils # (Auto) 4.3 1.8-7.7 K/uL Lymphocytes # (Auto) 1.3 1.0-4.8 K/uL Monocytes # (Auto) 1.1 H 0.1-1.0 K/uL Eosinophils # (Auto) 1.05 H 0.00-0.70 K/uL Basophils # (Auto) 0.03 0.00-0.20 K/uL Absolute Immature Granulocyte (auto 0.04 0-1 K/uL Nucleated Red Blood Cells 0.0 0.0-0.19 % Chemistry Labs: Test 07/19/24 10:51 07/18/24 04:47 Range/Units Whole Blood Glucose 105 70-110 MG/DL Sodium Level 135 L 136-145 mmol/L Potassium Level 3.9 3.5-5.1 mmol/L Chloride Level 102 101-111 mmol/L Carbon Dioxide Level 30 21-32 mmol/L Blood Urea Nitrogen 17 7-18 mg/dL Creatinine 0.8 0.5-1.3 mg/dL Glomerular Filtration Rate Calc 89 >90 mL/min Random Glucose 124 H 70-105 mg/dL Total Calcium 8.4 L 8.5-10.1 mg/dL Magnesium Level 2.10 1.80-2.40 mg/dL Total Bilirubin 0.2 0.2-1.0 mg/dL Aspartate Amino Transf (AST/SGOT) 14 10-37 U/L Alanine Aminotransferase (ALT/SGPT) 11 L 12-78 U/L Alkaline Phosphatase 55 50-136 U/L Total Protein 5.8 L 6.0-8.3 g/dL Albumin 2.0 L 3.5-5.0 g/dL Triglycerides Level 87 30-200 mg/dL Cholesterol Level 107 <200 mg/dL LDL Cholesterol 65 0-99 mg/dL HDL Cholesterol 35 29-71 mg/dL DIAGNOSTICS / RADIOLOGY RESULTS: [ ] PLAN NEURO: Minimize central acting medications as possible. Maintain fall precautions, adequate lighting during the day PULMONARY: Supplemental 02 as needed. Maintain aspiration precautions at all times CARDIOVASCULAR: Follow hemodynamics. Vital signs per facility protocol GI & NUTRITION: Continue with nutritional support. Continue stool softeners and laxatives as needed. KIDNEYS & ELECTROLYTES: Strict monitoring of intake, output and overall fluid balance. Avoid nephrotoxic medications to the extent possible. Medications to be dosed according to renal function. Monitor electrolytes and replace as needed ENDOCRINE: Maintain blood glucose between 100-180 at all times. Hypoglycemia protocol in place INFECTIOUS DISEASE: Trend temperature, WBC and procalcitonin level Follow cultures, deescalate antibiotics as soon as possible. Panculture if new onset fever ONCOLOGY/HEMATOLOGY/COAGULATION: Monitor for s/s of bleeding Monitor hemoglobin, coagulation studies as needed SKIN: Pressure ulcer prevention per facility protocol Specialty mattress ORTHO/REHAB: Continue PT/OT Prophylaxis: Continue GI and DVT prophylaxis Code Status: Full Resuscitation Disposition: TBD Other: Total patient care time exceeds 35 minutes excluding all procedures. ELVER BRAUN Jul 19, 2024 15:01
[2024-07-19] MEDS: M.V.I. IV [ADULT] 10 ML, MULTITRACE-4 ADULT 10ML VIAL 3 ML in CLINIMIX-E 5%AA /D15%W 2... IV ONE (15:15)
--- NOTE | 2024-07-19 23:08 | PN ---
This is a case of an 78-year-old man that had persistent symptoms of gastroesophageal reflux disease with a past medical history of hypertension that was evaluated by Gastroenterology on July 01, 2024. Given his persistent symptoms the patient was set up to do an EGD and colonoscopy. An EGD was 1st done this morning and he was noted to have a gastric mass consistent with a ga stric outlet obstruction. At this point our services were contacted for admission . Last meal intake was about 2 weeks ago with a solid ., he has been taking ensures and clear liquid since then without much appetite . BMs have been normal, last one this AM No emesis reported, + nausea . He jordan have a history of remote tobacco use , but quit about 10 yrs ago . He did partake in ETOH use about 4-5 drinks a day but quit 04/2024 Son is at bedside and we discussed current findings in detail and plan of care. Patient was evaluated by surgery. There is plan for surgery to be done Thursday PHYSICAL EXAM: GENERAL: alert, weak, awake oriented x 3 HEENT:ENT in place. EOMI, Sclera non icteric, moist mucosa NECK: Supple, no JVD, trachea midline LUNGS: Clear breath sounds bilaterally. No wheezes HEART: Regular rate and rhythm. Normal S1 and S2, without murmurs ABD: Abdomen soft, nontender. Bowel sounds present EXT: No clubbing cyanosis or edema NEURO: Alert and oriented to person, follows commands Assessment Acute Gastric Outlet Obstruction secondary to Gastric Mass. EGD was done with biopsy is sent to his local pathology. Acute Dehydration Failure to thrive secondary to #1 Electrolyte derangements Microcytic Anemia Leukocytosis , unclear etiology HTN GERD PLAN : 1. Will follow-up with the result of pathology.We have to wait until final report. If it is adenocarcinoma then this patient may be could have surgery done. But if it is different pathology such as GI stromal tumor, lymphoma and then the treatment will be different. 2. CT scan of the abdomen showing 3.4 x 4.6 cm gastric mass to the antral position. This patient was evaluated by surgeon. There is plan to have surgery to be done Thursday 3. I have long discussion with the patient and family member regarding the plan of care. I answer all question and concern and I spent more than 35 minutes. My nurse was translating to the patient and family member regarding our plan of care. 4. This patient to receive iron deficiency anemia. The patient could benefit from IV iron daily for 3 days while the patient in the hospital. 5. No need for blood product transfusion at this time 6. Continue TPN. Vitals/Labs Vital Signs Date Time Temp Pulse Resp B/P (MAP) Pulse Ox O2 Delivery O2 Flow Rate FiO2 07/19/24 19:32 67 18 N/A Room Air 21 07/19/24 19:22 98.4 98/59 97 07/19/24 07:40 0 Medications Current Medications Sodium Chloride 1,000 ml @ As Directed STK-MED ONCE IV Last administered on 07/13/24at 06:52; Start 07/13/24 at 06:08; Stop 07/13/24 at 06:08; Status DC Propofol 200 mg STK-MED ONCE IV; Start 07/13/24 at 10:35; Stop 07/13/24 at 10:35; Status DC Diphenhydramine HCl 25 mg Q6H PRN IV; Start 07/13/24 at 11:30; Stop 08/12/24 at 11:29 Ondansetron HCl 4 mg Q6H PRN IV; Start 07/13/24 at 11:30; Stop 08/12/24 at 11:29 Famotidine 20 mg BID IV Last administered on 07/19/24at 21:58; Start 07/13/24 at 21:00; Stop 08/12/24 at 20:59 Hydralazine HCl 25 mg Q6H PRN PO; Start 07/13/24 at 11:30; Stop 08/12/24 at 11:29 Artificial Tears 1 DROP OP PRN DRY EYES Q2H PRN OP; Start 07/13/24 at 11:30; Stop 08/12/24 at 11:29 Dextrose 50 ml AD PRN IV; Start 07/13/24 at 11:30; Stop 08/12/24 at 11:29 Glucagon 1 mg AD PRN IM; Start 07/13/24 at 11:30; Stop 08/12/24 at 11:29 Dextrose/Sodium Chloride 1,000 ml @ 75 mls/hr [id number] IV Last administered on 07/14/24at 14:36; Start 07/13/24 at 11:30; Stop 08/12/24 at 11:29 Enoxaparin Sodium 30 mg DAILY SQ Last administered on 07/19/24at 09:23; Start 07/15/24 at 09:00; Stop 08/14/24 at 08:59 Iohexol 35,000 mg STK-MED ONCE IV; Start 07/14/24 at 13:15; Stop 07/14/24 at 13:16; Status DC Piperacillin Sod/ Tazobactam Sod 3.375 gm Q8H IV Last administered on 07/19/24at 18:13; Start 07/14/24 at 17:00; Stop 07/24/24 at 16:59 Pharmacy Profile Note 1 each ONCE MISC; Start 07/14/24 at 17:00; Stop 07/15/24 at 09:21; Status DC Ipratropium [place] 0.5 mg Q6H IH Last administered on 07/19/24at 19:32; Start 07/14/24 at 17:00; Stop 08/13/24 at 16:59 Amino Acids/ Dextrose 2,000 ml @ 83.333 mls/ hr ONCE ONCE IV; Start 07/15/24 at 08:00; Stop 07/15/24 at 09:21; Status DC Potassium Chloride 100 ml @ 50 mls/hr AD PRN IV Last administered on 07/16/24at 13:08; Start 07/15/24 at 06:00; Stop 08/14/24 at 05:59 Amino Acids/ Electrolytes/ Dextrose 2,000 ml @ 83 mls/hr ONCE ONCE IV Last administered on 07/15/24at 11:52; Start 07/15/24 at 09:30; Stop 07/16/24 at 09:35; Status DC Propofol 200 mg STK-MED ONCE IV; Start 07/16/24 at 07:18; Stop 07/16/24 at 07:24; Status DC Lidocaine HCl 100 mg STK-MED ONCE .ROUTE; Start 07/16/24 at 07:18; Stop 07/16/24 at 07:24; Status DC Phenylephrine HCl 10 mg STK-MED ONCE IV; Start 07/16/24 at 07:26; Stop 07/16/24 at 07:27; Status DC Amino Acids/ Electrolytes/ Dextrose 2,000 ml @ 83 mls/hr ONCE ONCE IV Last administered on 07/16/24at 11:46; Start 07/16/24 at 12:00; Stop 07/17/24 at 09:41; Status DC Fat Emulsion Intravenous 250 ml @ 42 mls/hr [id number]@1000 IV Last administered on 07/18/24at 09:29; Start 07/18/24 at 10:00; Stop 08/17/24 at 09:59 Multivitamins/ Minerals 10 ml/ Chromium/Copper/ Manganese/Zinc 3 ml/Amino Acids/ Electrolytes/ Dextrose 2,000 ml @ 75 mls/hr ONCE ONCE IV Last administered on 07/17/24at 17:49; Start 07/17/24 at 10:00; Stop 07/18/24 at 12:39; Status DC Multivitamins/ Minerals 10 ml/ Chromium/Copper/ Manganese/Zinc 3 ml/Amino Acids/ Electrolytes/ Dextrose 2,000 ml @ 75 mls/hr ONCE ONCE IV Last administered on 07/18/24at 13:11; Start 07/18/24 at 13:30; Stop 07/19/24 at 13:40; Status DC Multivitamins/ Minerals 10 ml/ Chromium/Copper/ Manganese/Zinc 3 ml/Amino Acids/ Electrolytes/ Dextrose 2,000 ml @ 75 mls/hr ONCE ONCE IV Last administered on 07/19/24at 15:15; Start 07/19/24 at 16:00; Stop 07/20/24 at 18:39 ASTRID FRAZIER MD Jul 19, 2024 23:08
[2024-07-20] VITALS (13 sets, daily range): BP systolic 109–120; BP diastolic 60–72; PULSE 60–79; RESP 17–20; TEMP 98–98.9; O2SAT 96–98
[2024-07-20] MEDS: ceFAZolin SODIUM 2 GM VIAL IVPB SCH (08:30)
--- NOTE | 2024-07-20 15:34 | PN ---
[facility] PROGRESS NOTE Date Patient Seen: Jul 20, 2024 Time of Visit: 15:33 Supervising Physician: Dr. Sourav Fierro Primary Care Physician: DR ISAACS Outpatient Specialists: [ ] Inpatient Consults: DR RUEDA - GI PROBLEM LIST: Acute Gastric Outlet Obstruction secondary to Gastric Mass Right Sided Aspiration PNA likely due to above. Acute Dehydration Failure to thrive secondary to #1 Electrolyte derangements Microcytic Anemia secondaryto Iron deficiency HTN GERD PLAN : continue D5 NS at this time ,& TPN for nutrition as patient has been npo for prolonged period of time Further evaluated leukocytosis with UA /CXR / Procalcitonin and peripheral smear- Secondary to Right sided PNA , improving Continue zosyn and nebulizations, sputum cultures Oncology and General Surgery -following Cardiology has cleared as intermediate risk - pending surgery date Pain control Follow Echo results DVT prophylaxis / GI bleeding prophylaxis CBC CMP daily INTERVAL HISTORY: Patient is seen at bedside today, no family was present at the time. He continues with a nasogastric tube on wall suction. Pending likely surgical resection of the gastric outlet obstruction tomorrow. Patient has no new complaints at this time and, continues on Zosyn antibiotics as well as TPN. White count today is 7.8, hemoglobin 9.1. We will continue to monitor the patient closely postoperatively. Patient to remain NPO until after surgery. Family updated on plan of care and all questions answered. REVIEW OF SYSTEMS: 12 point ROS reviewed with patient. Pertinent positives mentioned above. Otherwise negative. PHYSICAL EXAM: GENERAL: alert, weak, awake oriented x 3 HEENT: EOMI, Sclera non icteric, moist mucosa ng tube to right nare NECK: Supple, no JVD, trachea midline LUNGS: Clear breath sounds bilaterally. No wheezes HEART: Regular rate and rhythm. Normal S1 and S2, without murmurs ABD: Abdomen soft, nontender. Bowel sounds present EXT: No clubbing cyanosis or edema NEURO: Alert and oriented to person, follows commands Vital Signs (last 8hr) Date Time Temp Pulse Resp B/P (MAP) Pulse Ox O2 Delivery O2 Flow Rate FiO2 07/20/24 12:14 98.1 72 18 109/63 99 Room Air 07/20/24 11:15 68 18 07/20/24 08:46 97 Room Air* 0 21 07/20/24 08:20 98.4 64 18 113/60 97 Room Air LABS: Chemistry Labs: Test 07/20/24 11:42 Range/Units Whole Blood Glucose 128 H 70-110 MG/DL DIAGNOSTICS / RADIOLOGY RESULTS: [ ] PLAN NEURO: Minimize central acting medications as possible. Maintain fall precautions, adequate lighting during the day PULMONARY: Supplemental 02 as needed. Maintain aspiration precautions at all times CARDIOVASCULAR: Follow hemodynamics. Vital signs per facility protocol GI & NUTRITION: Continue with nutritional support. Continue stool softeners and laxatives as needed. KIDNEYS & ELECTROLYTES: Strict monitoring of intake, output and overall fluid balance. Avoid nephrotoxic medications to the extent possible. Medications to be dosed according to renal function. Monitor electrolytes and replace as needed ENDOCRINE: Maintain blood glucose between 100-180 at all times. Hypoglycemia protocol in place INFECTIOUS DISEASE: Trend temperature, WBC and procalcitonin level Follow cultures, deescalate antibiotics as soon as possible. Panculture if new onset fever ONCOLOGY/HEMATOLOGY/COAGULATION: Monitor for s/s of bleeding Monitor hemoglobin, coagulation studies as needed SKIN: Pressure ulcer prevention per facility protocol Specialty mattress ORTHO/REHAB: Continue PT/OT Prophylaxis: Continue GI and DVT prophylaxis Code Status: Full Resuscitation Disposition: TBD Other: Total patient care time exceeds 35 minutes excluding all procedures. ELVER BRAUN Jul 20, 2024 15:34
--- NOTE | 2024-07-20 15:59 | NUR ---
Nutritional f/u Note: Chart, meds, and labs Reviewed. Pt currently with NGT in place to suction. Pt continues on TPN at this time, per chart review patient was scheduled for a possible resection planned for or Thursday pending GI. Abnormal nutrition related labs: trig 87, cholesterol 107, LDL 65, HDL 35, na 135, Nutrition-related Meds: CLinimix 5/15 % via central line at a rate of 75ml/hr, Include 10ml adult MVI and 3ml trace elements. TPN to provide 1800ml total volume, 90gm pro, 270gm dextrose, 1278kcal/day.GIR 3.5, lipid emulsion Wt Status: Current wt 53kg wt stable. Recommend: -Continue TPN -Continue lipid emulsion x 3 weekly M, W, F to prevent essential fatty acid deficiency -Check Lipid Panel weekly on Mondays -MD to Adjust TPN based on daily assessments as needed. -Transition to EN when medically feasible if pt remains NPO and partial GI restored consider J-tube feeding -RD to provide further recommendations based on clinical progress. -Monitor feeding tolerance, %, wt, and labs -If No BM >3days consider bowel stimulant. - Please notify RD if additional nutrition concerns arise. Addendum: 07/20/24 at [address] Amended: Links added.
[2024-07-20] MEDS: M.V.I. IV [ADULT] 10 ML in CLINIMIX-E 5%AA /D15%W 2000ML 2,000 ML IV ONE (20:14)
[2024-07-21] VITALS (32 sets, daily range): BP systolic 107–187; BP diastolic 60–95; PULSE 60–80; RESP 15–18; TEMP 97.1–98.4; O2SAT 97–100
[2024-07-21 06:49] LABS: INR 0.97 (0.85-1.15); PROTHROMBIN TIME 10.3 SEC (9.6-11.6)
[2024-07-21 06:50] LABS: PARTIAL THROMBOPLASTIN TIME 25.8 SEC (26.3-35.5)
[2024-07-21] MEDS: metRONIDazole 500MG/100ML BAG 100 ML IVPB SCH (07:00)
--- NOTE | 2024-07-21 09:48 | NUR ---
PROCEDURE SPOKE WITH ROXI RN TO VERIFY PATIENT IS ON THE SCHEDULE FOR SURGERY TODAY WITH ROXI STEELE VERIFIED THAT PATIENT IS SCHEDULED. PLAN OF CARE ON GOING.
--- NOTE | 2024-07-21 13:53 | PN ---
This is a case of an 78-year-old man that had persistent symptoms of gastroesophageal reflux disease with a past medical history of hypertension that was evaluated by Gastroenterology on July 01, 2024. Given his persistent symptoms the patient was set up to do an EGD and colonoscopy. An EGD was 1st done this morning and he was noted to have a gastric mass consistent with a ga stric outlet obstruction. At this point our services were contacted for admission . Last meal intake was about 2 weeks ago with a solid ., he has been taking ensures and clear liquid since then without much appetite . BMs have been normal, last one this AM No emesis reported, + nausea . He jordan have a history of remote tobacco use , but quit about 10 yrs ago . He did partake in ETOH use about 4-5 drinks a day but quit 04/2024 Son is at bedside and we discussed current findings in detail and plan of care. Patient was evaluated by surgery. There is plan for surgery to be done Thursday PHYSICAL EXAM: GENERAL: alert, weak, awake oriented x 3 HEENT:ENT in place. EOMI, Sclera non icteric, moist mucosa NECK: Supple, no JVD, trachea midline LUNGS: Clear breath sounds bilaterally. No wheezes HEART: Regular rate and rhythm. Normal S1 and S2, without murmurs ABD: Abdomen soft, nontender. Bowel sounds present EXT: No clubbing cyanosis or edema NEURO: Alert and oriented to person, follows commands Assessment Acute Gastric Outlet Obstruction secondary to Gastric Mass. EGD was done with biopsy is sent to his local pathology. Acute Dehydration Failure to thrive secondary to #1 Electrolyte derangements Microcytic Anemia Leukocytosis , unclear etiology HTN GERD PLAN : 1. Will follow-up with the result of pathology.We have to wait until final report. If it is adenocarcinoma then this patient may be could have surgery done. But if it is different pathology such as GI stromal tumor, lymphoma and then the treatment will be different. 2. CT scan of the abdomen showing 3.4 x 4.6 cm gastric mass to the antral position. This patient was evaluated by surgeon. There is plan to have surgery to be done Thursday 3. There is a plan to be day the patient to surgery today. Will follow-up closely 4. This patient to receive iron deficiency anemia. The patient could benefit from IV iron daily for 3 days while the patient in the hospital. 5. No need for blood product transfusion at this time 6. Continue TPN. Vitals/Labs Vital Signs Date Time Temp Pulse Resp B/P (MAP) Pulse Ox O2 Delivery O2 Flow Rate FiO2 07/21/24 12:18 97.7 74 18 117/66 97 Room Air 07/21/24 09:03 0 21 Medications Current Medications Sodium Chloride 1,000 ml @ As Directed STK-MED ONCE IV Last administered on 07/13/24at 06:52; Start 07/13/24 at 06:08; Stop 07/13/24 at 06:08; Status DC Propofol 200 mg STK-MED ONCE IV; Start 07/13/24 at 10:35; Stop 07/13/24 at 10:35; Status DC Diphenhydramine HCl 25 mg Q6H PRN IV; Start 07/13/24 at 11:30; Stop 08/12/24 at 11:29 Ondansetron HCl 4 mg Q6H PRN IV; Start 07/13/24 at 11:30; Stop 08/12/24 at 11:29 Famotidine 20 mg BID IV Last administered on 07/21/24at 08:58; Start 07/13/24 at 21:00; Stop 08/12/24 at 20:59 Hydralazine HCl 25 mg Q6H PRN PO; Start 07/13/24 at 11:30; Stop 08/12/24 at 11:29 Artificial Tears 1 DROP OP PRN DRY EYES Q2H PRN OP; Start 07/13/24 at 11:30; Stop 08/12/24 at 11:29 Dextrose 50 ml AD PRN IV; Start 07/13/24 at 11:30; Stop 08/12/24 at 11:29 Glucagon 1 mg AD PRN IM; Start 07/13/24 at 11:30; Stop 08/12/24 at 11:29 Dextrose/Sodium Chloride 1,000 ml @ 75 mls/hr [id number] IV Last administered on 07/20/24at 01:23; Start 07/13/24 at 11:30; Stop 08/12/24 at 11:29 Enoxaparin Sodium 30 mg DAILY SQ Last administered on 07/20/24at 08:03; Start 07/15/24 at 09:00; Stop 08/14/24 at 08:59 Iohexol 35,000 mg STK-MED ONCE IV; Start 07/14/24 at 13:15; Stop 07/14/24 at 13:16; Status DC Piperacillin Sod/ Tazobactam Sod 3.375 gm Q8H IV Last administered on 07/21/24at 08:58; Start 07/14/24 at 17:00; Stop 07/24/24 at 16:59 Pharmacy Profile Note 1 each ONCE MISC; Start 07/14/24 at 17:00; Stop 07/15/24 at 09:21; Status DC Ipratropium [place] 0.5 mg Q6H IH Last administered on 07/21/24at 11:04; Start 07/14/24 at 17:00; Stop 08/13/24 at 16:59 Amino Acids/ Dextrose 2,000 ml @ 83.333 mls/ hr ONCE ONCE IV; Start 07/15/24 at 08:00; Stop 07/15/24 at 09:21; Status DC Potassium Chloride 100 ml @ 50 mls/hr AD PRN IV Last administered on 07/16/24at 13:08; Start 07/15/24 at 06:00; Stop 08/14/24 at 05:59 Amino Acids/ Electrolytes/ Dextrose 2,000 ml @ 83 mls/hr ONCE ONCE IV Last administered on 07/15/24at 11:52; Start 07/15/24 at 09:30; Stop 07/16/24 at 09:35; Status DC Propofol 200 mg STK-MED ONCE IV; Start 07/16/24 at 07:18; Stop 07/16/24 at 07:24; Status DC Lidocaine HCl 100 mg STK-MED ONCE .ROUTE; Start 07/16/24 at 07:18; Stop 07/16/24 at 07:24; Status DC Phenylephrine HCl 10 mg STK-MED ONCE IV; Start 07/16/24 at 07:26; Stop 07/16/24 at 07:27; Status DC Amino Acids/ Electrolytes/ Dextrose 2,000 ml @ 83 mls/hr ONCE ONCE IV Last administered on 07/16/24at 11:46; Start 07/16/24 at 12:00; Stop 07/17/24 at 09:41; Status DC Fat Emulsion Intravenous 250 ml @ 42 mls/hr [id number]@1000 IV Last administered on 07/20/24at 11:18; Start 07/18/24 at 10:00; Stop 08/17/24 at 09:59 Multivitamins/ Minerals 10 ml/ Chromium/Copper/ Manganese/Zinc 3 ml/Amino Acids/ Electrolytes/ Dextrose 2,000 ml @ 75 mls/hr ONCE ONCE IV Last administered on 07/17/24at 17:49; Start 07/17/24 at 10:00; Stop 07/18/24 at 12:39; Status DC Multivitamins/ Minerals 10 ml/ Chromium/Copper/ Manganese/Zinc 3 ml/Amino Acids/ Electrolytes/ Dextrose 2,000 ml @ 75 mls/hr ONCE ONCE IV Last administered on 07/18/24at 13:11; Start 07/18/24 at 13:30; Stop 07/19/24 at 13:40; Status DC Multivitamins/ Minerals 10 ml/ Chromium/Copper/ Manganese/Zinc 3 ml/Amino Acids/ Electrolytes/ Dextrose 2,000 ml @ 75 mls/hr ONCE ONCE IV Last administered on 07/19/24at 15:15; Start 07/19/24 at 16:00; Stop 07/20/24 at 18:39; Status DC Metronidazole/ Sodium Chloride 100 ml @ 100 mls/hr Q8H6 IVPB; Start 07/21/24 at 07:00; Stop 07/22/24 at 06:59 Cefazolin Sodium 2 gm ONCALL IVPB; Start 07/20/24 at 08:30; Stop 07/21/24 at 08:29; Status DC Multivitamins/ Minerals 10 ml/ Amino Acids/ Electrolytes/ Dextrose 2,000 ml @ 75 mls/hr ONCE ONCE IV Last administered on 07/20/24at 20:14; Start 07/20/24 at 20:00; Stop 07/21/24 at 22:39 ASTRID FRAZIER MD Jul 21, 2024 13:53
[2024-07-21] MEDS ORDERED: LIDOCAINE HCL MPF 1% 5ML VIAL ONE ×2 (14:01→14:06)
[2024-07-21] MEDS ORDERED: proPOFol 10 MG/ML 20ML VIAL IV ONE (14:01)
[2024-07-21] MEDS ORDERED: FENTanyl CITRate PF 50 MCG/1 ML 2ML VIAL ONE ×2 (14:01→16:03)
[2024-07-21] MEDS ORDERED: rocuRONium bROMide 10MG/1ML 5ML VL ONE ×3 (14:01→18:27)
[2024-07-21] MEDS ORDERED: dexaMETHasone SOD PHOSPHATE 10MG/ML 1ML VIAL ONE (14:02)
[2024-07-21] MEDS ORDERED: ondanSETRON 4MG INJ ONE (14:02)
[2024-07-21] MEDS: metRONIDazole 500MG/100ML BAG 200 ML ONE (14:03)
[2024-07-21] MEDS: ceFAZolin SODIUM 2 GM VIAL ONE (14:03)
[2024-07-21] MEDS: LACTATED RINGERS 1000ML 1,000 ML IV ONE (14:04)
[2024-07-21] MEDS ORDERED: BUPIvacaine/PF 0.25% 30ML VIAL IJ ONE (14:07)
[2024-07-21] MEDS: ceFAZolin SODIUM 2 GM VIAL IVPB ONE (14:20)
[2024-07-21] MEDS ORDERED: phenylEPHRINE HCL 10 MG/ML 1ML VIAL IV ONE (14:59)
--- NOTE | 2024-07-21 16:15 | PN ---
[facility] PROGRESS NOTE Date Patient Seen: Jul 21, 2024 Time of Visit: 16:14 Supervising Physician: Dr. Sourav Fierro Primary Care Physician: DR ISAACS Outpatient Specialists: [ ] Inpatient Consults: DR RUEDA - GI PROBLEM LIST: Acute Gastric Outlet Obstruction secondary to Gastric Mass Right Sided Aspiration PNA likely due to above. Acute Dehydration Failure to thrive secondary to #1 Electrolyte derangements Microcytic Anemia secondaryto Iron deficiency HTN GERD PLAN : continue D5 NS at this time ,& TPN for nutrition as patient has been npo for prolonged period of time Further evaluated leukocytosis with UA /CXR / Procalcitonin and peripheral smear- Secondary to Right sided PNA , improving Continue zosyn and nebulizations, sputum cultures Oncology and General Surgery -following Cardiology has cleared as intermediate risk - pending surgery date Pain control Follow Echo results DVT prophylaxis / GI bleeding prophylaxis CBC CMP daily INTERVAL HISTORY: Patient evaluated today with his [id number] at bedside. He is in good spirits, continues with NG tube at this time. Patient was currently pending surgery per nursing staff shortly after lunch time. Patient and family had several questions regarding the timing of the surgery and when he would returned to the room. He continues on Zosyn, white count today is 7.8. Currently on room air. Patient to remain NPO until after surgery. Family updated on plan of care and all questions answered. REVIEW OF SYSTEMS: 12 point ROS reviewed with patient. Pertinent positives mentioned above. Otherwise negative. PHYSICAL EXAM: GENERAL: alert, weak, awake oriented x 3 HEENT: EOMI, Sclera non icteric, moist mucosa ng tube to right nare NECK: Supple, no JVD, trachea midline LUNGS: Clear breath sounds bilaterally. No wheezes HEART: Regular rate and rhythm. Normal S1 and S2, without murmurs ABD: Abdomen soft, nontender. Bowel sounds present EXT: No clubbing cyanosis or edema NEURO: Alert and oriented to person, follows commands Vital Signs (last 8hr) Date Time Temp Pulse Resp B/P (MAP) Pulse Ox O2 Delivery O2 Flow Rate FiO2 07/21/24 12:18 97.7 74 18 117/66 97 Room Air 07/21/24 11:04 68 18 07/21/24 09:03 99 Room Air* 0 21 LABS: Chemistry Labs: Test 07/21/24 11:44 Range/Units Whole Blood Glucose 151 H 70-110 MG/DL Coagulation Labs: Test 07/21/24 06:11 Range/Units Prothrombin Time 10.3 9.6-11.6 SEC Prothromb Time International Ratio 0.97 0.85-1.15 Activated Partial Thromboplast Time 25.8 L 26.3-35.5 SEC DIAGNOSTICS / RADIOLOGY RESULTS: [ ] PLAN NEURO: Minimize central acting medications as possible. Maintain fall precautions, adequate lighting during the day PULMONARY: Supplemental 02 as needed. Maintain aspiration precautions at all times CARDIOVASCULAR: Follow hemodynamics. Vital signs per facility protocol GI & NUTRITION: Continue with nutritional support. Continue stool softeners and laxatives as needed. KIDNEYS & ELECTROLYTES: Strict monitoring of intake, output and overall fluid balance. Avoid nephrotoxic medications to the extent possible. Medications to be dosed according to renal function. Monitor electrolytes and replace as needed ENDOCRINE: Maintain blood glucose between 100-180 at all times. Hypoglycemia protocol in place INFECTIOUS DISEASE: Trend temperature, WBC and procalcitonin level Follow cultures, deescalate antibiotics as soon as possible. Panculture if new onset fever ONCOLOGY/HEMATOLOGY/COAGULATION: Monitor for s/s of bleeding Monitor hemoglobin, coagulation studies as needed SKIN: Pressure ulcer prevention per facility protocol Specialty mattress ORTHO/REHAB: Continue PT/OT Prophylaxis: Continue GI and DVT prophylaxis Code Status: Full Resuscitation Disposition: TBD Other: Total patient care time exceeds 35 minutes excluding all procedures. ELVER BRAUN Jul 21, 2024 16:15
--- NOTE | 2024-07-21 18:17 | NUR ---
SPOKE WITH ISIDORO REGARDING PATIENT'S STATUS. STATED PATIENT IS STILL IN PROCEDURE.
[2024-07-21] MEDS: SUGAMMADEX SODIUM 200 MG/2 ML VIAL IV ONE (18:54)
[2024-07-21] MEDS: hydrALAZine 20MG/ML VIAL ONE (19:41)
--- NOTE | 2024-07-21 19:46 | OP ---
Operative Note: DATE OF PROCEDURE: 07/21/24 SURGEON: FACUNDO NI MD DEMAND GENERATOR MANAGER: Sam Ni MD PA-C ANESTHESIA: General and Local ANESTHESIOLOGIST/BIOMEDICAL EQUIPMENT SUPPORT SPECIALIST: [facility] anesthesia team PREOPERATIVE DIAGNOSIS: Distal/Pre-pyloric gastric cancer POSTOPERATIVE DIAGNOSIS: As above. Possible pancreatic involvement. SYNOPSIS: Resection near complete (distal and proximal staple lines complete) but posterior margin was growing in to retroperitoneal structures (including p ancreas) and resection could not be completed safely without risk of needing Whipple type reconstruction. 2nd specialist surgeon was consulted who agreed best plan was to abort the resection, leave drains and transfer to surgeon prepared for pancreatic resection if needed. PROCEDURE: 1. Robotic assisted laparoscopic distal gastrectomy/antrectomy 2. EGD 3. Drain placement and incomplete aborted resection due to possible pancreatic involvement ESTIMATED BLOOD LOSS: Minimal, less than 100 cc INDICATIONS: As above DESCRIPTION OF PROCEDURE: After standard precautions and preparations were undertaken a Veress needle and optical trocar were used to enter the abdominal cavity. All other instruments were placed under direct vision. The robotic system was docked in the standard fashion. Began the dissection by 1st examining for any distant metastatic disease within the peritoneal cavity. There were no such obvious signs so we proceeded with the resection. Given the pre-pyloric location of the tumor the plan resection was for an antrectomy or distal gastrectomy with a proximal margin of the junction of the antrum and body and distal margin at the 1st portion of the duodenum. We took down the gastrohepatic ligament up to the level of the lesser curve gastric wall. We took down the gastrocolic ligament up to the greater curve gastric wall. We continued along the backside of the transverse colon mesentery in an attempt to harvest as much omental and lymphatic tissue on bloc with the specimen as possible. We moved distally towards a duodenum with our dissection. A linear stapler with staple line reinforcement was used to divide the stomach at the proximal margin and we began working our way from all sides to attempt to resect. We ran into difficulty in the posterior gastric wall in the area of the tumor. This part of the stomach appeared fused to the retroperitoneum and was difficult to make progress on with regards to resection. Distally we were able to create a window beneath the posterior wall of the 1st portion of the duodenum and utilized a stapler with staple line reinforcement to divide the duodenum. At this point in the resection proximal and distal margins were stapled and divided but the posterior gastric wall was fused to the retroperitoneum. I consulted a 2nd surgeon, hepatobiliary specialist Dr. Yañez, and performed a video call to allow him to visualize some of the anatomy that I was having difficulty with. It was his professional opinion that the tumor may in fact be growing into the retroperitoneum and potentially involving the pancreas. He thought it was a possibility that a portion of the pancreas might need to be taken and potentially a Whipple reconstruction might need to be undertaken. After attempting to continue to peel the tumor off posterior margin from several different working angles I realized that no safe progress could be made without significant risk of the patient. The decision was made to place drains, an NG tube into the stapled gastric body and prepared the patient for transfer for completion resection with the potential for partial pancreatic resection as well. In all, 5-6 hours of operating was undertaken and the patient remained completely hemodynamically stable throughout without any significant blood loss or complication. I explained these findings to the family who were appreciative and aware of the patient's need for transfer and further surgical care. FACUNDO NI MD Jul 21, 2024 19:46
--- NOTE | 2024-07-21 20:28 | NUR ---
RECEIVED PT FROM PACU BACK FROM PACU ,DROWSY BUT AROUSABLE,AAO3, NGT TO RIGHT NARE , X2 JPDRAINS MARY GRACE ABDOMEN,V/SSTABLE O2AT 2LPM/NC, DUG896%, NO ACUTE DISTRESS, SON AT BEDSIDE Addendum: 07/21/24 at 2109 by DEBORAH WEBB RN RN Amended: Links added.
--- NOTE | 2024-07-21 22:00 | NUR ---
REPORT TO INITIAL REPORT CALLED TO ANUP RICHARDS Amy [facility] NOTIFIED OF REQUEST FOR TRANSPORT Addendum: 07/21/24 at 2300 by DEBORAH WEBB RN RN Amended: Links added.
--- NOTE | 2024-07-21 23:40 | NUR ---
DC STATUS DC STABLE PERV/S PICC LINE,PIV TO LEFT FA ,NGT TO RIGHT NARE IN PLACE ,GOOD WORKING CONDITION. JPRATTS X2 SECURED.TRANSFERRED TO [facility] BY EMS , PT ON THE WAY TO [facility].MOT AND PERTINENT TRANSFER DOCUMENTS ENDORSED TO EMS PERSONNEL.FINAL REPORT GIVEN TO ANUP RICHARDS AT [facility]. Addendum: 07/22/24 at 0151 by DEBORAH WEBB RN RN Amended: Links added.
== END 2024-07-22 00:05 | disposition short-term general hospital (02) | DRG 326 ==
LOC: ENDO 05:41 → DAH 05:41 → ENDO 05:42 → DAHIP 05:42 → 4AH 15:25
PROVIDERS: ADMIT Internal Medicine Critical Care Medicine; ATTEND Internal Medicine Critical Care Medicine
PROC: 0DB58ZX Excision of Esophagus, Via Natural or Artificial Opening Endoscopic, Diagnostic (ICD-10-PCS; principal; 2024-07-13)
PROC: 0DB78ZX Excision of Stomach, Pylorus, Via Natural or Artificial Opening Endoscopic, Diagnostic (ICD-10-PCS; 2024-07-13)
PROC: 02HV33Z Insertion of Infusion Device into Superior Vena Cava, Percutaneous Approach (ICD-10-PCS; 2024-07-15)
PROC: B548ZZA Ultrasonography of Superior Vena Cava, Guidance (ICD-10-PCS; 2024-07-15)
PROC: 0DJ08ZZ Inspection of Upper Intestinal Tract, Via Natural or Artificial Opening Endoscopic (ICD-10-PCS; 2024-07-16)
PROC: 8E0W4CZ Robotic Assisted Procedure of Trunk Region, Percutaneous Endoscopic Approach (ICD-10-PCS; 2024-07-21)
PROC: 0DB64ZZ Excision of Stomach, Percutaneous Endoscopic Approach (ICD-10-PCS; 2024-07-21 14:20)
DX: C16.9 Malignant neoplasm of stomach, unspecified (principal); J69.0 Pneumonitis due to inhalation of food and vomit; K31.1 Adult hypertrophic pyloric stenosis; Z68.1 Body mass index [BMI] 19.9 or less, adult; C78.6 Secondary malignant neoplasm of retroperitoneum and peritoneum; I10 Essential (primary) hypertension; D50.9 Iron deficiency anemia, unspecified; E86.0 Dehydration; R63.4 Abnormal weight loss; R62.7 Adult failure to thrive; K21.00 Gastro-esophageal reflux disease with esophagitis, without bleeding; Z87.891 Personal history of nicotine dependence
CPT/HCPCS: 36415; 43235; 43236; 43239; 43241; 43259; 71045; 71270; 74178; 80053; 80061; 81003; 82607; 82728; 82948; 83735; 84100; 84145; 85025; 85610; 85730; 86850; 86900; 86901; 86923; 87071; 87086; 87205; 87426; 87804; 93005; 93306; 93356; 94640; 94664; A4450; A4606; G0378; J0360; J1100; J1650; J2003; J2371; J2405; J2543; J2704; J3010; J3480; J3490; J7030; J7120; Q9967; A4215; A4216; A4221; A4222; A4223; A4600; A4620; A4663; A4930; J0665; J0690

== ENCOUNTER 2024-08-28 14:20 | Emergency (ER) | payer OTHER ==
[~2024-08-28] VITALS: Ht 167.6 cm; Wt 54.4 kg
[~2024-08-28 14:20] MED LIST: CLOP75TA32 PO; OMEP40CA21 PO; RAMI5CAP72 PO
--- NOTE | 2024-08-28 15:05 | NUR ---
PENDING GFR RESULTS, IV SITE, & CONSENT FOR CT EXAM.
[2024-08-28 15:13] LABS: BASOPHILS # (AUTO) 0.05 K/uL (0.00-0.20); BASOPHILS % (AUTO) 0.2 % (0.0-5.0); EOSINOPHILS # (AUTO) 0.07 K/uL (0.00-0.70); EOSINOPHILS % (AUTO) 0.3 % (0.0-8.0); HEMATOCRIT 30.9 % (42-54); IMMATURE GRANULOCYTE ABSOLUTE 0.13 K/uL (0-1); LYMPHOCYTES # (AUTO) 1.4 K/uL (1.0-4.8); LYMPHOCYTES % (AUTO) 6.5 % (21.0-51.0); MEAN CORPUSCULAR HEMOGLOBIN 21.6 pg (27.0-33.0); MEAN CORPUSCULAR HGB CONC 29.8 g/dL (32.0-36.0); MEAN CORPUSCULAR VOLUME 72.5 fL (79-99); MONOCYTES # (AUTO) 1.7 K/uL (0.1-1.0); MONOCYTES % (AUTO) 7.8 % (3.0-13.0); NEUTROPHILS # (AUTO) 18.3 K/uL (1.8-7.7); NEUTROPHILS % (AUTO) 84.6 % (40.0-77.0); RED BLOOD CELL COUNT(AUTO) 4.26 MIL/uL (4.50-6.20); RED CELL DISTRIBUTION WIDTH 18.3 % (11.0-15.5); WHITE BLOOD COUNT (AUTO) 21.7 K/uL (4.8-10.8)
--- NOTE | 2024-08-28 15:17 | NUR ---
WOUND CARE INITIATED APPLIED SALINE, BETADINE, XERFORM GAUZE AND 4X4 GAUZE ON TOP OF RUQ INCISION SITE
--- NOTE | 2024-08-28 15:18 | NUR ---
REFER TO ANATOMICAL DIAGRAM FOR WOUNDS
[2024-08-28 15:19] LABS: PLATELET COUNT (AUTO) 933 K/uL (130-400)
[2024-08-28 15:23] LABS: CREATININE 0.8 mg/dL (0.5-1.3); POTASSIUM 4.4 mmol/L (3.5-5.1)
[2024-08-28] MEDS ORDERED: IOHEXOL-350 75 ML VIAL IV ONE (15:24)
[2024-08-28 15:42] LABS: PLATELET MORPHOLOGY COMMENT MARKED INCREASE
[2024-08-28] MEDS: 0.9%NACL 1000ML 1,000 ML IV ONE ×2 (16:19→17:54)
[2024-08-28] MEDS: ZOSYN 3.375GM +NS 50ML IV ONE (16:19)
--- NOTE | 2024-08-28 16:24 | HMCIMG ---
CT ABDOMEN/PELVIS W/CONTRAST HISTORY: Post Whipple procedure COMPARISON: None TECHNIQUE: Multiple sequential axial images of the abdomen and pelvis were obtained from the dome of the diaphragm through symphysis pubis. Patient was given 75 cc of Omnipaque through intravenous route. Oral contrast was not given. FINDINGS: No pleural effusion is seen bilaterally. COPD changes are seen. There is no evidence of parenchymal disease or pulmonary nodule of the visualized lower lungs. Degenerative changes of the thoracolumbar spine are present. The heart is not enlarged. Patient is status post Whipple procedure. Extensive mesenteric fat stranding is seen in the upper abdomen worse on the right. There is complex area with air collection and complex material in the right upper abdomen measuring 5.8 x 7.8 cm suspicious for abscess in the proper clinical setting. The stomach is markedly distended measuring 2.6 cm in thickness. Mild small bowel dilatation is seen with fluid-filled. The liver, spleen, adrenal glands are unremarkable. There is no evidence of hydronephrosis bilaterally. No evidence of renal stone is seen. Fecal material is seen in the colon. There are normal size retroperitoneal and mesenteric lymph nodes. No ascites is seen. Atherosclerotic changes are present. Pelvic sidewalls are symmetric bilaterally. Bladder is well distended without wall thickening. IMPRESSION: 1. Patient is status post Whipple procedure. Extensive mesenteric fat stranding is seen in the upper abdomen worse on the right. There is complex area with air collection and complex material in the right upper abdomen measuring 5.8 x 7.8 cm suspicious for abscess in the proper clinical setting. The stomach is markedly distended measuring 2.6 cm in thickness. Mild small bowel dilatation is seen with fluid-filled. CT was performed with one or more following dose reduction techniques: automated exposure control, adjustment of the mA and kv according to patient's size, or use of a iterative reconstruction technique.
--- NOTE | 2024-08-28 16:55 | NUR ---
TRANSFER REQUEST TO R FOR POST OP FOLLOW UP BY SURGEON. ALFRED RICHARDS
--- NOTE | 2024-08-28 17:10 | ERN ---
General Chief Complaint: Post-Op Problem Stated Complaint: FLANK PAIN Time Seen by MD: 14:26 Time Seen by Midlevel: 14:26 Source: patient History of Present Illness Initial Comments The patient is an 78 year old male presenting to the emergency department for evaluation of right upper quadrant abdominal pain. Patient reports having a Whipple procedure performed on July 23 over at [facility] by Dr. Renato Yañez. Today he reports increased pain to his right upper quadrant with large amount of green discharge. No fever, chills, or any other symptoms have been reported at this time. Allergies: Coded Allergies: No Known Drug Allergies (Unverified Allergy, Unknown, 07/13/24) Home Meds Reported Medications Omeprazole (Omeprazole) 40 Mg Capsule.dr, 1 CAP PO DAILY for 30 Days, #30 CAP 0 Refills 07/13/24 Clopidogrel Bisulfate (Clopidogrel) 75 Mg Tablet, 1 TAB PO DAILY for 30 Days, #30 TAB 0 Refills 07/13/24 Ramipril (Ramipril) 5 Mg Capsule, 1 CAP PO DAILY for 30 Days, #30 CAP 0 Refills 07/13/24 Past Medical History Past Medical History: Cancer Past Surgical History: Other Surgical History Other: WHIPPLE ROS Dictation CONSTITUTIONAL: Negative except for HPI HEAD/FACE: Negative except for HPI EENT: Negative except for HPI RESPIRATORY: Negative except for HPI GASTROINTESTINAL/ABDOMINAL: Negative except for HPI GENITOURINARY: Negative except for HPI MUSCULOSKELETAL: Negative except for HPI INTEGUMENTARY: Negative except for HPI NEUROLOGICAL/PSYCH: Negative except for HPI HEMATOLOGIC/LYMPHATIC: Negative except for HPI All Systems Negative, Except as noted above. 13 point review of systems assessed and all negative except for above. Physical Exam Physical Exam Dictation Vital Signs reviewed General Appearance: Alert, oriented x 3, no acute distress, well developed, nourished. Head and Face: non-traumatic. Eyes: PERRL, pink conjunctivas, eyelid no trauma, anterior chamber with arcus senilis. Ears: Pinnas intact and no signs of trauma or erythema ear canals clear and no discharge TM no erythema Nose: No discharge, no bleeding. Oropharynx: Mouth normal, tongue pink, pharynx clear,no erythema, tonsils no exudates, no abscesses noted, mucous membrane moist Neck: Supple, non-tender, no thyromegaly, no masses, no JVD, no bruits Breast:Deferred Chest:No tenderness, no crepitus, no paradoxical movement, no retractions Lungs:Clear, well-ventilated, symmetric, no rales, no wheezing, no rhonchi, no stridor, good breath sounds bilaterally Heart: Regular rate, regular rhythm, no murmur, no gallops Vascular: no peripheral edema, Abdomen: Soft, positive bowel sounds, nondistended, no guarding, Right upper quadrant abdominal tenderness, no rebound, no masses no hepatomegaly, no splenomegaly, no Amaya's sign, no hernias. There is moderate amount of green purulent discharge from the post surgical incision, no surrounding erythema or induration is noted Rectal: Deferred Genital: Deferred Neurological: Normal speech, motor function intact, sensory function intact Musculoskeletal: Neck nontender, full range of motion, back nontender, full range of motion, Extremities: nontender, full range of motion Skin: Color pink, dry, no turgor, no rash, no lacerations, no abrasions, no contusions. Lymphatic: Deferred Results Laboratory and Microbiology Lab and Micro Result Laboratory Tests Test 08/28/24 14:50 White Blood Count 21.7 K/uL (4.8-10.8) H Red Blood Count 4.26 MIL/uL (4.50-6.20) L Hemoglobin 9.2 g/dL (14.0-18.0) L Hematocrit 30.9 % (42-54) L Mean Corpuscular Volume 72.5 fL (79-99) L Mean Corpuscular Hemoglobin 21.6 pg (27.0-33.0) L Mean Corpuscular Hemoglobin Concent 29.8 g/dL (32.0-36.0) L Red Cell Distribution Width 18.3 % (11.0-15.5) H Platelet Count 933 K/uL (130-400) *H Mean Platelet Volume 9.0 fL (7.5-10.5) Immature Granulocyte % (Auto) 0.6 % (0-1) Neutrophils (%) (Auto) 84.6 % (40.0-77.0) H Lymphocytes (%) (Auto) 6.5 % (21.0-51.0) L Monocytes (%) (Auto) 7.8 % (3.0-13.0) Eosinophils (%) (Auto) 0.3 % (0.0-8.0) Basophils (%) (Auto) 0.2 % (0.0-5.0) Neutrophils # (Auto) 18.3 K/uL (1.8-7.7) H Lymphocytes # (Auto) 1.4 K/uL (1.0-4.8) Monocytes # (Auto) 1.7 K/uL (0.1-1.0) H Eosinophils # (Auto) 0.07 K/uL (0.00-0.70) Basophils # (Auto) 0.05 K/uL (0.00-0.20) Absolute Immature Granulocyte (auto 0.13 K/uL (0-1) Nucleated Red Blood Cells 0.0 % (0.0-0.19) White Cell Morphology Comment See comments Platelet Morphology Comment MARKED INCREASE Red Blood Cell Morphology See comments Sodium Level 136 mmol/L (136-145) Potassium Level 4.4 mmol/L (3.5-5.1) Chloride Level 97 mmol/L (101-111) L Carbon Dioxide Level 32 mmol/L (21-32) Blood Urea Nitrogen 14 mg/dL (7-18) Creatinine 0.8 mg/dL (0.5-1.3) Glomerular Filtration Rate Calc 89 mL/min (>90) Random Glucose 119 mg/dL (70-105) H Lactic Acid Level 2.9 mmol/L (0.8-2.5) H Total Calcium 9.0 mg/dL (8.5-10.1) Labs Reviewed?: Yes MDM MDM: The patient is an 78 year old male presenting to the emergency department for evaluation of right upper quadrant abdominal pain. Patient reports having a Whipple procedure performed on July 23 over at [facility] by Dr. Renato Yañez. Today he reports increased pain to his right upper quadrant with large amount of green discharge. No fever, chills, or any other symptoms have been reported at this time. Initial vital signs are remarkable for a temperature of 98.8. Heart rate is 83 beats per minute. Blood pressure is 96/59. O2 saturation is 95% on room air. On physical examination the patient has TIARRA drains to right flank. Patient has right upper quadrant abdominal tenderness with moderate amount of purulent discharge that is green and foul smelling. There was no surrounding erythema or induration to the TIARRA drains or postsurgical incisions. CBC shows leukocytosis with a left shift. There is anemia with a hemoglobin of 9.2 and a thrombocytosis with a platelet count of 933. Chemistries reveal an elevated lactic acid at 2.9. CT scan of the abdomen/pelvis with contrast reveals patient was status post Whipple procedure. There is extensive mesenteric fat stranding seen in the upper abdomen that is worse in the right. There is a complex area with air collection and complex material in the right upper abdomen measuring 5.8 x 7.8 cm suspicious for an abscess. The stomach is distended with mild small bowel dilation. At 4:50 p.m. the surgeon who performed the Whipple procedure was contacted Dr. Yañez. The CT findings were discussed and he recommends transfer to [facility] for further observation and management. The patient was started on Zosyn and will be transferred. Differential diagnosis: Intra-abdominal abscess, sepsis, perforated bowel Rationale: Tests considered and ordered secondary to shared decision making include: Previous outside records reviewed: Old ER visits. Risk of complication and/or morbidity or mortality of patient management: None Medications-Per medication reconciliation Need for hospitalization: Patient does meet criteria for hospitalization. Need for emergency major/minor surgery: No There are no social concerns with this patient. Prescription drug management Prescriptions will include symptomatic care Patient's prior external medical records from other ER visits were reviewed by me as indicated. Prior testing and results from previous visits were reviewed. Prior tests were taken into account with medical decision making and resource utilization, independent historian/historians were used to obtain complete medic al history. I independently interpreted the test that were performed, results were reviewed by me and considered findings on radiology if ordered. Medical management and examination interpretation discussions were had by me with other qualified healthcare professionals as indicated for the patient's care. ED Course Orders Procedure Category Date Status Time Cbc With Differential LAB 08/28/24 Complete 14:47 Basic Metabolic Panel LAB 08/28/24 Complete 14:47 Blood Cult ALEM 08/28/24 In Process 14:47 Anaerobic Culture ALEM 08/28/24 In Process 14:47 Aerobic Culture ALEM 08/28/24 In Process 14:47 Lactic Acid LAB 08/28/24 Complete 14:47 Zosyn 3.375gm+Ns 50ml PHA 08/28/24 Complete (Zosyn 3.375gm+Ns 15:00 Ct Abdomen/Pelvis CT 08/28/24 Resulted W/Contrast 14:47 0.9%Nacl 1000ml (Ns PHA 08/28/24 Complete 1000ml) 15:30 Iohexol (Omnipaque) PHA 08/28/24 Complete 15:24 Current Medications Medications (Trade) Dose Ordered Sig/Nory Route PRN Reason Start Time Stop Time Status Last Admin Dose Admin Iohexol (Omnipaque) 75 ml STK-MED ONCE IV 08/28/24 15:24 08/28/24 15:25 DC Piperacillin Sod/ Tazobactam Sod (Zosyn 3.375gm+NS 50ml) 3.375 gm ONCE ONCE IV 08/28/24 15:00 08/28/24 15:04 DC 08/28/24 16:19 Sodium Chloride 1,000 ml @ 0 mls/hr ONCE ONCE IV 08/28/24 15:30 08/28/24 15:31 DC 08/28/24 16:19 Vital Signs Date Time Temp Pulse Resp B/P (MAP) Pulse Ox O2 Delivery O2 Flow Rate FiO2 08/28/24 15:27 97.9 93 13 91/58 100 Room Air* 0 21 08/28/24 14:22 98.8 83 20 96/59 93 Room Air 0 DX & DISP Disposition: Transfer ([facility]) Departure Impression: Primary Impression: Intra-abdominal abscess Additional Impressions: Sepsis, H/O Whipple procedure, Leukocytosis, Thrombocytosis, Anemia Condition: Stable Referrals: SELF,REFERRAL (PCP) I have reviewed the case, and I agree with, Diagnosis and Plan I performed the substantive portion of the visit. I have reviewed and personally made and approve the management plan that is documented in the note by myself or the STACEY. I acknowledge for responsibility for the patient's management plan. ROYCE MARCUS Aug 28, 2024 17:10
--- NOTE | 2024-08-28 17:15 | NUR ---
TRANSFER CALL PLACE PER INTAKE NURSE SHE WILL CALL BACK. ALFRED RICHARDS
--- NOTE | 2024-08-28 17:30 | NUR ---
TRANSFER CALL BACK FROM R INTAKE NURSE JEFF INFORMATION PROVIDE AND FAX REQUESTED TO [phone] RN
--- NOTE | 2024-08-28 18:16 | NUR ---
TRANSFER CALL BACK FROM [facility] INTAKE NURSE WITH UPDATE PT HAS BEEN ACCEPTED BY DR ROMO NOW PENDING HOSPITALIST. ALFRED RICHARDS
--- NOTE | 2024-08-28 18:44 | NUR ---
TRANSFER CALL BACK FROM R WITH ACCEPTANCE UNDER DR ROMO TO ROOM 5413 AND PRIMARY NURSE CALL REPORT TO [phone] AND EMS WHEN READY. ALFRED RICHARDS
--- NOTE | 2024-08-28 19:22 | NUR ---
LONNIE RICHARDS CONFIRMED PAPER WORK WITH DESHAWN AT [facility]
--- NOTE | 2024-08-28 19:52 | NUR ---
CALLED AND GAVE REPORT TO AARON MCCALL RN FROM R, ROOM 5413 CALLED AND SPOKE TO DESHAWN FROM EMS TO CONFIRM TRANSPORT PATIENT RESTING IN BED, CALL LIGHT IN REACH
--- NOTE | 2024-08-28 21:57 | NUR ---
[facility] [employer] TECHNICIAN HAS CALLED STATING THAT THIS PT. NEEDS TO HAVE THE BED REASSIGNED TO ROOM 306 WITH REPORT: [phone].
--- NOTE | 2024-08-28 22:10 | NUR ---
[employer] NOTIFIED ED RN AT THIS TIME THAT ROOM NUMBER AT [facility] HAS CHANGED AND REPORT NEEDS TO BE GIVEN TO A DIFFERENT NURSE. PER [employer] EMS WILL BE CALLED AND ASKED FOR ESTIMATE TIME OF ARRIVAL.
--- NOTE | 2024-08-28 22:10 | NUR ---
[facility]S [facility] CALLED FOR ETA. STATES THEY HAVE HAD SEVERAL 911 CALLS AND WILL BE HERE TOÑITO.
--- NOTE | 2024-08-28 22:25 | NUR ---
EMS ARRIVED FOR PT AT THIS TIME
[2024-08-28 22:28] VITALS: BP 113/74; PULSE 82; RESP 17; TEMP 98.1; O2SAT 98
--- NOTE | 2024-08-28 22:34 | NUR ---
EMS LEFT WITH PT AT THIS TIME. PENDING ARRIVAL TO R. PT SHOWS NO SIGNS OF DISTRESS AT THIS TIME.
--- NOTE | 2024-08-28 22:38 | NUR ---
ATTEMPT TO GIVE REPORT AT THIS TIME.
--- NOTE | 2024-08-28 22:44 | NUR ---
REPORT GIVEN TO ANGELO RICHARDS AT [facility] AT THIS TIME
== END 2024-08-28 22:34 | disposition short-term general hospital (02) ==
LOC: EDH 14:20
DX: A41.9 Sepsis, unspecified organism (principal); K65.1 Peritoneal abscess; D64.9 Anemia, unspecified; D72.829 Elevated white blood cell count, unspecified; D75.839 Thrombocytosis, unspecified; Z79.02 Long term (current) use of antithrombotics/antiplatelets; Z79.899 Other long term (current) drug therapy; Z90.411 Acquired partial absence of pancreas; Z90.49 Acquired absence of other specified parts of digestive tract; Z98.890 Other specified postprocedural states
CPT/HCPCS: 99285; 74177; 96365; 96366; 80048; 85025; 87040 ×2; 87076; 87086; 87186; 83605 ×2; 36415; 87070; J7030 ×2; J2543; Q9967